=== PATIENT | male | born 1980 | race Caucasian/White ===

== ENCOUNTER 2021-10-04 17:34 | Outpatient (CLI) | payer OTHER, SELFPAY | END 2021-10-04 17:35 | disposition home or self-care (01) | LOC: LKVREF 17:34 | PROVIDERS: PCP Family Medicine; Visit Provider Registered Nurse | DX: R10.9 Unspecified abdominal pain (principal) | CPT/HCPCS: 87086 ==

== ENCOUNTER 2021-10-04 17:35 | Inpatient (IN) | payer OTHER, SELFPAY ==
[2021-10-04 17:46] VITALS: BP 123/60; PULSE 129; RESP 24; TEMP 38.8; O2SAT 97; BMI 33.5
--- NOTE | 2021-10-04 18:15 | ED_ITS ---
HPI - Abdominal Pain General Time Seen by Provider: 18:15 Date Seen: 10/04/21 Chief Complaint: Abdominal Pain Stated Complaint: Left abdominal pain Time Seen by Provider: 10/04/21 18:14 Source: patient and RN notes reviewed Mode of arrival: ambulatory Limitations: no limitations History of Present Illness HPI narrative: Patient is presenting to the ER from [facility] where he was seen for left flank pain. He reported on intake that he was having left side and back pain about 4 hours prior to being seen. Symptoms had him quite uncomfortable on presentation daughter urgent care. It sounds as if he was diaphoretic. He did leave urinalysis in get 30 mg IM Toradol but then left to come down here to get a CT. He has never had any history of kidney stones. His works in our clinic here. He did drive himself here but is able to get a ride if needed. He notes his grandmother and had bladder infections before there is no family history of stones. He reports he had a normal bowel movement this morning. In this process just prior to arrival he started to develop a headache and is documented to have a fever of 102 F on arrival here. His tympanic temperature is documented to be 98.4 in Urgent Care but patient is adamant that he states he had a temperature there is well. We certainly do have a 102? F temperature here. He denies any urinary symptoms, no nausea or vomiting. There is no cough with this but he does note he takes a really deep breath it does hurt in that left flank area. Related Data Home Medications Medication Instructions Recorded Confirmed albuterol sulfate 90 mcg/actuation g inhalation 10/04/21 10/04/21 aerosol inhaler (Ventolin HFA) filter needles 19 x 1 1/2 (BD #1 ea 10/04/21 10/04/21 Filter Needle-5 Micron) magnesium oxide 400 mg (241.3 mg 400 mg PO 10/04/21 10/04/21 magnesium) tablet needle (disp) 23 gauge 23 gauge x #100 ea 10/04/21 10/04/21 1 (Hypodermic [place]) syringe (disposable) 1 mL (BD #1,000 ea 10/04/21 10/04/21 Luer-Tawanda Syringe) testosterone 20.25 mg/1.25 gram 20.25 mg transdermal 10/04/21 10/04/21 (1.62 %) transdermal gel pump testosterone cypionate 200 mg/mL 200 mg IM 10/04/21 10/04/21 intramuscular oil Allergies Allergy/AdvReac Type Severity Reaction Status Date / Time No Known Drug Allergies Allergy Verified 10/04/21 16:27 Review of Systems Status of ROS Reports: 10 or more systems reviewed and unremarkable except as noted in History and below [facility] Medical History Asthma Surgical History Status post hernia repair Social History Smoking Status: Never smoker Do you use any of these nicotine containing products: None How often do you have a drink containing alcohol: never How often do you have six or more drinks on one occasion: Never AUDIT-C Alcohol total score: 0 Non-prescribed substance use: denies use Exam Const: Vital Signs, click to edit/add: Vital Signs - 24 hr 10/04/21 17:46 10/04/21 18:41 10/04/21 20:23 Temperature 102 F H 102 F H 98.9 F Pulse Rate [Pulse Oximeter] 129 H 121 H Respiratory Rate 24 22 Blood Pressure [Le ft Upper Arm] 123/60 112/78 Pulse Oximetry 97 98 Oxygen Delivery Me thod Room Air Room Air 10/04/21 20:44 Temperature 101.2 F H Pulse Rate [Pulse Oximeter] 120 H Respiratory Rate 24 Blood Pressure [Le ft Upper Arm] 119/58 L Pulse Oximetry 96 Oxygen Delivery Me thod Room Air Documenting provider has reviewed patient's vital signs: yes Common normals: no apparent distress, average body habitus, oriented x3, no limitations, healthy appearing, alert and well nourished General appearance: cooperative, comfortable and ill appearing HENMT: Common normals: normocephalic, head/scalp atraumatic, hearing grossly normal bilaterally, TM's normal bilaterally, external nose normal, nasal mucous membranes and turbinates normal, moist oral mucous membranes, oropharynx normal and dentition normal Head and scalp: normocephalic and atraumatic Nose: external nose normal and nasal mucous membranes and turbinates normal Tympanic membrane: TM's normal bilaterally Eye: Common normals: PERRL, EOMs intact bilaterally, conjunctivae normal and no scleral icterus Conjunctiva: conjunctiva(e) normal Pupil: PERRL Neck & C-Spine: Common normals: full ROM, no lymphadenopathy, supple, no meningeal signs, no JVD and thyroid normal Thyroid: thyroid normal Resp: Common normals: normal respiratory effort, no retractions, no use of accessory muscles and clear to auscultation bilaterally Auscultation: clear to auscultation bilaterally Cardio: Common normals: no JVD, regular rate, regular rhythm, S1 normal heart sound, S2 normal heart sound, no gallops, no clicks, no murmurs and no rub Rate: regular rate Rhythm: regular rhythm Heart sounds: S1 normal and S2 normal GI: Other: patient has no visible flank skin changes. He is tender in the left lateral abdomen and down into the left lateral quadrant. There is not true guarding or rebound. There is no organomegaly anywhere nor any masses. Abdomen is nondistended and overall soft but there is tenderness on that left side. Extremity: Common normals: normal to inspection, full ROM, normal capillary refill, no joint enlargement, no clubbing, cyanosis or edema, no calf tenderness and no pedal edema Neuro: Common normals: oriented x3 Sensorium/orientation: alert Meningeal signs: no meningeal signs Course Course Hospital Course: Patient obviously has an infectious source that we need to find. Given that some of this was left flank and has a little pleuritic symptoms, do think we should do chest abdomen pelvis with IV contrast. Will started L of fluids, give him some Tylenol as well as morphine and Zofran for pain control. We will be getting blood cultures and a full complement of labs. It is likely he will need admission, rule out surgical abdomen here for sure. Reevaluation(s) Reevaluation #1: Nursing staff alerted me that patient had blood pressure drop. He had a systolic of 104 and then had a blood pressure of 99/58 just prior to this time. His pulse had raised into the 120s just becoming more tachycardic. He is still alert and awake. He is having significant left flank and back pain likely from the retroperitoneal air. The Zosyn has been given. We are attempting to transfer but [facility] is on diversion. We will attempt to continue contacting places but her surgeon is on our way down here knowing that he may need to go to the OR here for expediency and to get him to surgically quickly. I have been subsequently notified by nursing staff that the [facility] system is completely out of question for transfer. They will continue to make calls seen if we could get an expeditious transfer while our OR crew and surgeon are EN route. Time: 20:35 Reevaluation #2: We have continued to try to look for resources to send this patient to. Kesha it is trauma only, we have actually called back [facility] as well as [facility] asking for postsurgical ICU beds. They are telling us they cannot accept. Surgery crew in the surgeon are here. The surgeon has decided that it is definitely needed emergently and time is of the essence. Thus, she has made the decision to go to the OR here and hopefully patient will be stable postoperatively but they may need to look for transfer afterwards Which certainly may prove difficult as well. Time: 21:32 Consultations Consultation #1: Received phone call by Dr. Amy Doran from Radiology. Verbal report is that there is acute diverticulitis in the mid descending colon there is wall thickening and small to moderate retroperitoneal air which is extending into the mediastinum. This is obviously a perforation and not a micro perf. I did subsequently call our surgeon Dr. Robertson whom will be looking at the CT and co ntacting me back for further recommendations. I have subsequently ordered Zosyn for the patient as well. Patient was subsequently advised of the CT findings, that IV antibiotics will be initiated. I will let him know I have spoken to the surgeon. He states the pain is starting to come back. I will order another subsequent 4 mg IV morphine. I see his initial fluids are done and I will now order another L of normal saline over 2 hours. Time: 19:55 Vital Signs Vital signs: Initial Vital Signs Temperature 102 F H 10/04/21 17:46 Temperature Source Temporal Artery Scan 10/04/21 17:46 Pulse Rate 129 H 10/04/21 17:46 Pulse Rhythm 10/04/21 17:46 Respiratory Rate 24 10/04/21 17:46 Blood Pressure 123/60 10/04/21 17:46 Blood Pressure Mean 81 10/04/21 17:46 Blood Pressure Position Sitting 10/04/21 17:46 Pulse Oximetry 97 10/04/21 17:46 Oxygen Delivery Method 10/04/21 17:46 Vital Signs Temperature 102 F H 10/04/21 17:46 Pulse Rate 129 H 10/04/21 17:46 Respiratory Rate 24 10/04/21 17:46 Blood Pressure 123/60 10/04/21 17:46 Pulse Oximetry 97 10/04/21 17:46 Oxygen Delivery Method 10/04/21 17:46 Temperature 101.2 F H 10/04/21 20:44 Pulse Rate 120 H 10/04/21 20:44 Respiratory Rate 24 10/04/21 20:44 Blood Pressure 119/58 L 10/04/21 20:44 Pulse Oximetry 96 10/04/21 20:44 Oxygen Delivery Method 10/04/21 20:44 MDM - Abdominal Pain Lab Data Attestation: I reviewed the patient's lab results. Labs: Lab Results 10/04/21 10/04/21 10/04/21 Range/Units 18:10 18:10 18:10 WBC 18.25 H (4.50-11.00) K/uL RBC 5.72 (4.30-5.90) m/uL Hgb 16.6 (13.5-17.5) gm/dL Hct 49.2 (37.0-53.0) % MCV 86 (80-100) fL MCH 29 (26-34) pg MCHC 34 (32-36) gm/dL RDW Coeff of Balbir 14.2 (11.5-15.5) % Plt Count 338 (140-440) K/uL Neut % (Auto) 90.2 H (42.0-72.0) % Lymph % (Auto) 3.5 L (20-44) % [place] % (Auto) 5.9 (0.0-11.0) % Eos % (Auto) 0.1 (0.0-7.0) % Baso % (Auto) 0.1 (0.0-3.0) % Neut # (Auto) 16.50 H (1.7-7.0) K/uL Lymph # (Auto) 0.60 L (0.90-2.90) K/uL [place] # (Auto) 1.10 H (0.00-0.90) K/UL Eos # (Auto) 0.00 (0.00-0.50) K/uL Baso # (Auto) 0.00 (0.00-0.30) K/uL Abs Immat Gran (auto) 0.03 (0.00-0.30) K/uL ESR (2-15) mm/hr Sodium 136 (135-149) mmol/L Potassium 4.0 (3.6-5.1) mmol/L Chloride 103 (96-114) mmol/L Carbon Dioxide 18 L (20-32) mmol/L BUN 19 (5-24) mg/dL Creatinine 1.0 (0.5-1.5) mg/dL Estimated Creat Clear 90.89 Estimated GFR 97 ml/min Glucose 97 (60-115) mg/dL Lactate 1.1 (0.5-1.9) mmol/L Calcium 9.4 (8.4-10.6) mg/dL Total Bilirubin 1.0 (0.1-1.5) mg/dL AST 24 (12-35) U/L ALT 23 (4-50) U/L Alkaline Phosphatase 83 (40-150) U/L C-Reactive Protein 14.7 H (0.5-1.0) mg/dL Total Protein 8.2 (6.0-8.3) g/dL Albumin 4.7 (3.3-5.0) g/dL SARS-CoV-2 (PCR) (Negative) 10/04/21 10/04/21 Range/Units 18:10 18:24 WBC (4.50-11.00) K/uL RBC (4.30-5.90) m/uL Hgb (13.5-17.5) gm/dL Hct (37.0-53.0) % MCV (80-100) fL MCH (26-34) pg MCHC (32-36) gm/dL RDW Coeff of Balbir (11.5-15.5) % Plt Count (140-440) K/uL Neut % (Auto) (42.0-72.0) % Lymph % (Auto) (20-44) % [place] % (Auto) (0.0-11.0) % Eos % (Auto) (0.0-7.0) % Baso % (Auto) (0.0-3.0) % Neut # (Auto) (1.7-7.0) K/uL Lymph # (Auto) (0.90-2.90) K/uL [place] # (Auto) (0.00-0.90) K/UL Eos # (Auto) (0.00-0.50) K/uL Baso # (Auto) (0.00-0.30) K/uL Abs Immat Gran (auto) (0.00-0.30) K/uL ESR 7 (2-15) mm/hr Sodium (135-149) mmol/L Potassium (3.6-5.1) mmol/L Chloride (96-114) mmol/L Carbon Dioxide (20-32) mmol/L BUN (5-24) mg/dL Creatinine (0.5-1.5) mg/dL Estimated Creat Clear Estimated GFR ml/min Glucose (60-115) mg/dL Lactate (0.5-1.9) mmol/L Calcium (8.4-10.6) mg/dL Total Bilirubin (0.1-1.5) mg/dL AST (12-35) U/L ALT (4-50) U/L Alkaline Phosphatase (40-150) U/L C-Reactive Protein (0.5-1.0) mg/dL Total Protein (6.0-8.3) g/dL Albumin (3.3-5.0) g/dL SARS-CoV-2 (PCR) Negative SARS-CoV-2 (Negative) Imaging Data CT Chest/Ab/Pelvis: Attestation: I have reviewed the pertinent imaging results. Radiologist's impression: Patient: MARLEN COLE Facility:?[facility] Patient ID:?[id number] Site Patient ID:?[id number]. Site :?[id number] Study:?CT Chest/Abd/Pelvis w/ Contrast-10/04/2021 7:01:57 PM Ordering Physician:Faustino Handley Final Report: INDICATION: Fever of unknown source, left flank pain TECHNIQUE: CT chest, abdomen and pelvis acquired with 99 cc Isovue 370 IV contrast. COMPARISON: CT abdomen pelvis May 19, 2012 FINDINGS: Chest: Cardiovascular structures: Heart size is normal. Thoracic aorta and main pulmonary artery are normal in caliber. Mediastinum and varun: There is small amount of pneumomediastinum. No mass or adenopathy. Lungs: Clear. Pleura and pericardium: No effusions. Chest wall and axilla: No mass or adenopathy. Bones: Unremarkable for age. Abdomen and Pelvis: Liver: Unremarkable. Spleen: Unremarkable. 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 Gallbladder and bile ducts: Unremarkable. Adrenal glands: Unremarkable. Kidneys: Unremarkable. GI tract: Colonic diverticulosis. Fat stranding and wall thickening involving the mid descending colon. There is a small to moderate amount of left retroperitoneal air which extends into the mediastinum. Moderate amount of stool within the colon proximal to the mid descending colon. There is no abscess. Normal appendix. Vascular structures: Unremarkable. Lymph nodes: Unremarkable. Miscellaneous: Unremarkable. Pelvic Organs: Unremarkable. Bones: Chronic bilateral L5 pars defects. IMPRESSION: Acute diverticulitis of the mid descending colon with small to moderate amount of left retroperitoneal air extending into the mediastinum. No abscess. Stable appearance of fat containing mass in the pancreatic head. These findings were discussed with Dr. Galvin at 7:55 p.m. on October 04, 2021. Please note that all CT scans at this facility use dose modulation, iterative reconstruction, and/or weight-based dosing when appropriate to reduce radiation dose to as low as reasonably achievable. Dictated by Amy Doran MD @ 10/04/2021 7:57:30 PM (Electronic Signature) Critical Care Time Critical Care Time Critical Care Time: Yes (starting with the low blood pressure) Attestation: The patient required my highest level preparedness to intervene emergently and I personally spent this critical care time directly and personally managing the patient. This critical care time included: Obtaining a history; Examining the patient; Pulse oximetry; Ordering and reviewing of studies; Arranging urgent treatment with development of a management plan; Evaluation of patients response to treatment; Frequent reassessment discussions with other providers. This critical care time was performed to assess and manage the high probability of imminent life-threatening deterioration that could result in multiorgan failure. It was exclusive of separate billable procedures and treating other patients and teaching time. Total Critical Care Time in Minutes: 60 Discharge Plan Discharge Clinical Impression: Diverticulitis of descending colon, Perforation bowel Patient Disposition: Admitted As Inpatient Condition: Unchanged
--- NOTE | 2021-10-04 18:21 | ED.NURSE ---
iv was started and blood drawn. #18 in [facility].
--- NOTE | 2021-10-04 18:23 | CRLHL7_ITS ---
For Patients: As a result of the Century Cures Act, medical imaging exams and procedure reports are released immediately into your electronic medical record. You may view this report before your referring provider. If you have questions, please contact your health care provider. INDICATION: Fever of unknown source, left flank pain TECHNIQUE: CT chest, abdomen and pelvis acquired with 99 cc Isovue 370 IV contrast. COMPARISON: CT abdomen pelvis May 19, 2012 FINDINGS: Chest: Cardiovascular structures: Heart size is normal. Thoracic aorta and main pulmonary artery are normal in caliber. Mediastinum and varun: There is small amount of pneumomediastinum. No mass or adenopathy. Lungs: Clear. Pleura and pericardium: No effusions. Chest wall and axilla: No mass or adenopathy. Bones: Unremarkable for age. Abdomen and Pelvis: Liver: Unremarkable. Spleen: Unremarkable. 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 Gallbladder and bile ducts: Unremarkable. Adrenal glands: Unremarkable. Kidneys: Unremarkable. GI tract: Colonic diverticulosis. Fat stranding and wall thickening involving the mid descending colon. There is a small to moderate amount of left retroperitoneal air which extends into the mediastinum. Moderate amount of stool within the colon proximal to the mid descending colon. There is no abscess. Normal appendix. Vascular structures: Unremarkable. Lymph nodes: Unremarkable. Miscellaneous: Unremarkable. Pelvic Organs: Unremarkable. Bones: Chronic bilateral L5 pars defects. IMPRESSION: Acute diverticulitis of the mid descending colon with small to moderate amount of left retroperitoneal air extending into the mediastinum. No abscess. Stable appearance of fat containing mass in the pancreatic head. These findings were discussed with Dr. Galvin at 7:55 p.m. on October 04, 2021. Please note that all CT scans at this facility use dose modulation, iterative reconstruction, and/or weight-based dosing when appropriate to reduce radiation dose to as low as reasonably achievable. Dictated by Amy Doran MD @ 10/04/2021 7:57:30 PM (Electronically Signed)
[2021-10-04 18:41] VITALS: TEMP 38.8
[2021-10-04] MEDS: ACETAMINOPHEN 500 MG TABLET 1000 MG PO (18:41)
[2021-10-04] MEDS: 0.9 % SODIUM CHLORIDE 1000 ml 1,000 ML IV (18:41)
[2021-10-04] MEDS: MORPHINE 4 MG/ML INJ IVP ×2 (18:41→20:20)
[2021-10-04] MEDS: ONDANSETRON 2 MG/ML inj 4 MG IVP (18:42)
[2021-10-04 18:57] LABS: Lactate* 1.1 mmol/L (0.5-1.9)
[2021-10-04 18:59] LABS: Basophils Percent Auto 0.1 % (0.0-3.0); Eosinophils Percent Auto 0.1 % (0.0-7.0); Hematocrit 49.2 % (37.0-53.0); Hemoglobin* 16.6 gm/dL (13.5-17.5); Immature Granulocytes Abs Auto 0.03 K/uL (0.00-0.30); Lymphocytes Percent Auto 3.5 % (20-44); Mean Corpuscular HGB Conc 34 gm/dL (32-36); Mean Corpuscular Hemoglobin 29 pg (26-34); Mean Corpuscular Volume 86 fL (80-100); Monocytes Percent Auto 5.9 % (0.0-11.0); Neutrophils Percent Auto 90.2 % (42.0-72.0); Platelet Count* 338 K/uL (140-440); RDW Coefficient of Variation % 14.2 % (11.5-15.5); Red Blood Count 5.72 m/uL (4.30-5.90); White Blood Count* 18.25 K/uL (4.50-11.00)
[2021-10-04 19:03] LABS: Slide Review Reflex No
[2021-10-04 19:56] LABS: Albumin* 4.7 g/dL (3.3-5.0); Chloride* 103 mmol/L (96-114); Sodium* 136 mmol/L (135-149)
[2021-10-04 19:59] LABS: Est. Creatinine Clearance* 90.89; Estimated Glomerular Filt Rate 97 ml/min; SARS PCR* Negative SARS-CoV-2 (Negative)
[2021-10-04 20:00] LABS: Alanine Aminotransferase* 23 U/L (4-50); Alkaline Phosphatase* 83 U/L (40-150); Aspartate Amino Transferase* 24 U/L (12-35); Blood Urea Nitrogen* 19 mg/dL (5-24); Carbon Dioxide* 18 mmol/L (20-32); Glucose* 97 mg/dL (60-115); Total Protein* 8.2 g/dL (6.0-8.3)
[2021-10-04 20:01] LABS: Calcium* 9.4 mg/dL (8.4-10.6)
[2021-10-04 20:12] LABS: Erythrocyte SedimentationRate* 7 mm/hr (2-15)
[2021-10-04 20:19] LABS: C Reactive Protein* 14.7 mg/dL (0.5-1.0)
[2021-10-04] MEDS: 0.9 % SODIUM CHLORIDE 1000 ml 1,000 ML 500 ML IV (20:20)
[2021-10-04] MEDS: PIPERACILLIN/TAZOBACTAM 3.375 GM in 0.9 % SODIUM CHLORIDE Mini-bag 100 ML IVPB (20:20)
[2021-10-04 20:23] VITALS: BP 112/78; PULSE 121; RESP 22; TEMP 37.2; O2SAT 98
[2021-10-04 20:44] VITALS: BP 119/58; PULSE 120; RESP 24; TEMP 38.4; O2SAT 96
[2021-10-04] MEDS: LACTATED RINGERS 1000 ML 1,000 ML 100 ML IV ×2 (21:20→22:45)
--- NOTE | 2021-10-04 21:33 | PM.GSCN ---
History of Present Illness Consult details Date Seen: 10/04/21 Consult date: 10/04/21 Reason for consult: abdominal pain Narrative: Patient is an otherwise healthy 41-year-old male, who presented initially to urgent care with left-sided abdominal pain. On presentation he was febrile and tachycardic, prompting him to be sent to the emergency department. He states that the pain started around noon. He has never had pain like this before. He has been febrile since the pain started. The pain is on his left side with some radiation around his flank into his back. Decrease in appetite. Denies any associated nausea or vomiting. The only thing that seems to make the pain better is pain medication, no position is comfortable. denies any diarrhea or constipation. He did have a colonoscopy 2 years earlier, because he was having pain with bowel movements, this was negative per patient. Denies any family history of colon cancer. Abdominal surgical history is positive for umbilical hernia repair with mesh. Review of Systems Status of ROS: Reports: 6 or more systems reviewed and unremarkable except as noted in History and below [facility] Medical History Asthma Surgical History (Updated 10/04/21 @ 21:38 by Emmanuelle Abebe MD) Status post hernia repair Social History Smoking Status: Never smoker Do you use any of these nicotine containing products: None How often do you have a drink containing alcohol: never How often do you have six or more drinks on one occasion: Never AUDIT-C Alcohol total score: 0 Non-prescribed substance use: denies use Meds Home Medications and Allergies Home Medications Medication Instructions Recorded Confirmed Type albuterol sulfate 90 mcg/actuation g inhalation 10/04/21 10/04/21 History aerosol inhaler (Ventolin HFA) filter needles 19 x 1 1/2 (BD #1 ea 10/04/21 10/04/21 History Filter Needle-5 Micron) magnesium oxide 400 mg (241.3 mg 400 mg PO 10/04/21 10/04/21 History magnesium) tablet needle (disp) 23 gauge 23 gauge x #100 ea 10/04/21 10/04/21 History 1 (Hypodermic [place]) syringe (disposable) 1 mL (BD #1,000 ea 10/04/21 10/04/21 History Luer-Tawanda Syringe) testosterone 20.25 mg/1.25 gram 20.25 mg transdermal 10/04/21 10/04/21 History (1.62 %) transdermal gel pump testosterone cypionate 200 mg/mL 200 mg IM 10/04/21 10/04/21 History intramuscular oil Allergies Allergy/AdvReac Type Severity Reaction Status Date / Time No Known Drug Allergies Allergy Verified 10/04/21 16:27 Exam Narrative: Exam Narrative: General: Alert and oriented, moderate distress. Respiratory: Equal breath rise bilaterally, maintained on room air CV: Tachycardic, regular rhythm, warm to the touch and well perfused Abdomen: Soft mild distention, tender to palpation with some guarding. Left flank tenderness to palpation with guarding and rebound. Extremities: No evidence of bilateral edema Const: Vital Signs, click to edit/add: Vital Signs - 24 hr 10/04/21 17:46 10/04/21 18:41 10/04/21 20:23 Temperature 102 F H 102 F H 98.9 F Pulse Rate [Pulse Oximeter] 129 H 121 H Respiratory Rate 24 22 Blood Pressure [Le ft Upper Arm] 123/60 112/78 Pulse Oximetry 97 98 Oxygen Delivery Me thod Room Air Room Air 10/04/21 20:44 Temperature 101.2 F H Pulse Rate [Pulse Oximeter] 120 H Respiratory Rate 24 Blood Pressure [Le ft Upper Arm] 119/58 L Pulse Oximetry 96 Oxygen Delivery Me thod Room Air Results Labs Labs: Abnormal lab results 10/04/21 10/04/21 Range/Units 18:10 18:10 WBC 18.25 H (4.50-11.00) K/uL Neut % (Auto) 90.2 H (42.0-72.0) % Lymph % (Auto) 3.5 L (20-44) % Neut # (Auto) 16.50 H (1.7-7.0) K/uL Lymph # (Auto) 0.60 L (0.90-2.90) K/uL [place] # (Auto) 1.10 H (0.00-0.90) K/UL Carbon Dioxide 18 L (20-32) mmol/L C-Reactive Protein 14.7 H (0.5-1.0) mg/dL Diabetes panel 10/04/21 Range/Units 18:10 Sodium 136 (135-149) mmol/L Potassium 4.0 (3.6-5.1) mmol/L Chloride 103 (96-114) mmol/L Carbon Dioxide 18 L (20-32) mmol/L BUN 19 (5-24) mg/dL Creatinine 1.0 (0.5-1.5) mg/dL Glucose 97 (60-115) mg/dL Calcium 9.4 (8.4-10.6) mg/dL AST 24 (12-35) U/L ALT 23 (4-50) U/L Alkaline Phosphatase 83 (40-150) U/L Total Protein 8.2 (6.0-8.3) g/dL Albumin 4.7 (3.3-5.0) g/dL Calcium panel 10/04/21 Range/Units 18:10 Calcium 9.4 (8.4-10.6) mg/dL Albumin 4.7 (3.3-5.0) g/dL Pituitary panel 10/04/21 Range/Units 18:10 Sodium 136 (135-149) mmol/L Potassium 4.0 (3.6-5.1) mmol/L Chloride 103 (96-114) mmol/L Carbon Dioxide 18 L (20-32) mmol/L BUN 19 (5-24) mg/dL Creatinine 1.0 (0.5-1.5) mg/dL Glucose 97 (60-115) mg/dL Calcium 9.4 (8.4-10.6) mg/dL Adrenal panel 10/04/21 Range/Units 18:10 Sodium 136 (135-149) mmol/L Potassium 4.0 (3.6-5.1) mmol/L Chloride 103 (96-114) mmol/L Carbon Dioxide 18 L (20-32) mmol/L BUN 19 (5-24) mg/dL Creatinine 1.0 (0.5-1.5) mg/dL Glucose 97 (60-115) mg/dL Calcium 9.4 (8.4-10.6) mg/dL Total Bilirubin 1.0 (0.1-1.5) mg/dL AST 24 (12-35) U/L ALT 23 (4-50) U/L Alkaline Phosphatase 83 (40-150) U/L Total Protein 8.2 (6.0-8.3) g/dL Albumin 4.7 (3.3-5.0) g/dL All other labs normal. Imaging Abdomen CT scan report/results: report reviewed and image reviewed CT scan - chest: report reviewed and image reviewed Assessment and Plan Assessment and plan (1) Perforation bowel: Status: Acute Plan patient is a 41-year-old male with sudden onset abdominal pain. Vital signs significant for tachycardia and hypotension in the emergency department. His pressures have responded to fluid resuscitation. He has also been persistently febrile since presentation. Labs are significant for leukocytosis (18) and elevated CRP ( 14.7). CT chest abdomen and pelvis was obtained with evidence of left colonic diverticulitis and associated perforation. There is a significant amount of retroperitoneal air that tracks up into the mediastinum. Given the patient's presentation and findings on workup, this is consistent with a noncontained colonic perforation. this was discussed at length with the patient, with recommendations at this time to proceed to the operating room for an emergency operation. Would plan for an exploratory laparotomy, colonic resection and end ostomy. Risks and benefits of the operation were discussed at length with the patient. Risks included were not limited to: Bleeding, infection, risk of damage to surrounding structures and possible need for additional procedures. Additionally reviewed with the patient the risk of postoperative complications such as pneumonia, DVT, PE and . He is currently meeting sepsis criteria and may require transfer to a facility for ICU cares post operatively. - OR for exploratory laparotomy, colonic resection and end ostomy - NPO, IV fluids will continue aggressive fluid resuscitation intraoperatively - Lua placement - IV antibiotics, Zosyn administered in the emergency department
[2021-10-05] VITALS (32 sets, daily range): BP systolic 112–173; BP diastolic 54–115; PULSE 84–99; RESP 14–28; TEMP 36.6–37.9; O2SAT 90–96
--- NOTE | 2021-10-05 01:30 | P.GSOP_ITS ---
Operative Note Date of procedure: 10/04/21 Type of Procedure: 1. Exploratory laparotomy 2. Left hemicolectomy 3. Complete mobilization of the splenic flexure Procedure Description: I arrived into the OR with the patient under anesthesia and the abdominal incision had been made. Dr. Robertson positioned the omni retractor in and patient was placed in Trendelenburg with the left side up. Dr. Robertson gently packed the small bowel into the right abdomen, exposing the colon. She palpated the colon along its length and discover that the perforation was in the left mid/lateral abdomen. She then extended the incision cephalad several cm to better expose the area. Once this was done, the retractors were replaced and the small bowel moved into the right abdomen. Once this was done, Dr. Robertson retracted the left colon medially and I retracted the lateral peritoneal attachments. The peritoneum was incised and Dr. Robertson then exposed the white line of Toldt using a right angle and I incised it with cautery. We were able to take the dissection up toward the spleen. The colon was noted to be firm and densely adherent to the retroperitoneum in the area of perforation. Once we reached the spleen, very carefully, using LigaSure, Dr. Robertson divided the splenocolic ligament while I retracted the colon inferiorly. We were able to mobilize the colon inferior to the perforation and superiorly, however the colon was very stuck to the retroperitoneum and we were unable to mobilize it. At this time we elected to identify the proximal point of transection and divided the mesentery, heading distally to the inflammatory mass. Dr. Robertson then identified and retracted the stomach while I retracted the transverse colon and divided the gastrocolic ligament using LigaSure. The lesser sac was entered and we were able to completely mobilize the transverse colon and the splenic flexure from this angle. Once this was done, an area of transverse colon which was disease free and freely mobile was selected for the area of proximal transection. Dr. Robertson created a mesenteric window and through this passed a blue load TRISTON stapler. She then divided the colon. She then took LigaSure and divided the transverse colon mesentery and around the splenic fl exure while I provided retraction. Small mesenteric vessels were also ligated with suture. Once we reached the mass, it was densely adhered to the retroperitoneum. We were able to free it with a combination of blunt dissection and the LigaSure. A cavity containing stool and necrotic tissue was encountered in the retroperitoneum. This did not track medially or superiorly and the area where the air was noted on the patient's CT scan. Once we were able to get past this area, Dr. Robertson divided the colon mesentery until a soft portion of colon was encountered just distal to the inflammatory mass. This was our distal point of transection. Dr. Robertson then cleared the epiploic fat off of the colon and fired a blue load TRISTON stapler across this. The specimen was sent to pathology with a stitch marking the distal aspect. Once this was done, the wound bed was examined for hemostasis. Again Dr. Robertson examined the abscess cavity and ensure that there was no undrained collection. She then placed a drain in the left lateral abdomen. We then dissected the mesentery of the transverse colon to ensure that it would pass freely to the abdominal wall. Once this was done, Dr. Robertson created an incision in the scan just above the umbilicus on the left side of the abdomen. She took dissection down into the subcutaneous tissue. I assisted with retraction at this time. She incised the fascia and the rectus muscles to create a stoma trephine. Through this she passed the and of the transverse colon easily. Once this was done we switched to clean instruments and Dr. Robertson closed the upper portion the fascia and I closed the lower portion of the fascia. Incision was then stapled. At this point I turned the case over to Dr. Robertson to mature the stoma. Please see her Operative report. Findings: Perforation of the descending colon with retroperitoneal abscess and stool. Anesthesia: GETA Surgeon: Hailee Robertson MD Co-Surgeon: Saumya Lobo MD Estimated blood loss (mL): 150 Condition: stable Disposition: PACU
--- NOTE | 2021-10-05 01:45 | PM.ONB ---
Brief Operative Note Date of procedure: 10/05/21 Pre-op diagnosis: Perforated diverticulitis Post-op diagnosis: same Anesthesia: GETA Surgeon: Hailee Robertson Print Shop Manager: Saumya Lobo Estimated blood loss (mL): 150 Pathology: specimen obtained, sent to pathology Condition: stable Disposition: PACU
--- NOTE | 2021-10-05 01:52 | W.ANESCHARGE ---
Anesthesia Charges Start Date/Time Anesthesia Start Date: 10/05/21 Anesthesia Start Time: 21:50 Stop Date/Time Anesthesia Stop Date: 10/05/21 Anesthesia Stop Time: 01:42 Summary Emergency: Yes
[2021-10-05] MEDS: HYDROmorphone 0.5 mg/0.5 ml inj IVP ×14 (02:43→23:36)
[2021-10-05] MEDS: LACTATED RINGERS 1000 ML 1,000 ML 125 ML IV ×3 (02:47→19:22)
[2021-10-05] MEDS: PIPERACILLIN/TAZOBACTAM 3.375 GM in 0.9 % SODIUM CHLORIDE Mini-bag 100 ML IVPB ×4 (03:56→21:38)
[2021-10-05] MEDS: KETOROLAC 15 MG/ML inj IVP ×4 (04:05→21:35)
--- NOTE | 2021-10-05 07:10 | PC.NURSE ---
Admission/Shift Note: Pt to room CCU4 at 0232 following surgery. Pt A&O. Pt afebrile, initially on simple mask at 10L, weaned to NC at 2L with O2 sats in the low 90's, pt encouraged to cough and deep breathe. Abdominal incision has some serosanguineous drainage noted, RUDI drain is patent, stripped and drained Q4H with 40ml of output this shift. Urine output 300ml via Lua which is patent and draining. Pt denies N/V, CP, and SOB. Pt given PRN Dilaudid and PRN Toradol with pt reporting relief. Pt is splinting with a pillow and active ice to abdomen. Pt colostomy is intact, stoma appears beefy and red, moist, very minimal bloody output.
[2021-10-05] MEDS: ALBUTEROL SULFATE 2.5 MG/3 ML VIAL.NEB NEB ×2 (07:34→15:12)
--- NOTE | 2021-10-05 09:59 | PM.GSPN ---
Subjective Subjective Date Seen: 10/05/21 Interval history: Patient is doing well this morning. He is having abdominal pain and requiring pain meds every hour. He has not yet gotten up out of bed. Knight is still in place. He is feeling very thirsty this morning, no appetite. Denies any nausea and not yet passing gas. Exam Narrative: Exam Narrative: Gen: ALert and oriented, no acute distress Resp: on NC, equal breath rise bilaterally CV: RRR Abdomen: midline incision with dressing in place c/d/i. Stoma is beefy red in appearance, minimal bloody drianage. RUDI drain with minimal dark sanguinous output. Abdomen is non distended, soft and appropriately tender over incisions. Const: Vital Signs, click to edit/add: Vital Signs - 24 hr 10/04/21 17:46 10/04/21 18:41 10/04/21 20:23 Temperature 102 F H 102 F H 98.9 F Pulse Rate Pulse Rate [Left P ulse Oximeter] Pulse Rate [Pulse Oximeter] 129 H 121 H Respiratory Rate 24 22 Blood Pressure Blood Pressure [Le ft Upper Arm] 123/60 112/78 Blood Pressure [Ri ght Arm] Pulse Oximetry 97 98 Oxygen Delivery Me thod Room Air Room Air Oxygen Flow Rate 10/04/21 20:44 10/05/21 01:41 10/05/21 01:45 Temperature 101.2 F H 100.2 F H Pulse Rate 93 89 Pulse Rate [Left P ulse Oximeter] Pulse Rate [Pulse Oximeter] 120 H Respiratory Rate 24 20 17 Blood Pressure 126/73 123/72 Blood Pressure [Le ft Upper Arm] 119/58 L Blood Pressure [Ri ght Arm] Pulse Oximetry 96 91 91 Oxygen Delivery Me thod Room Air Oxygen Flow Rate 10/05/21 01:50 10/05/21 01:55 10/05/21 02:00 Temperature Pulse Rate 84 90 92 Pulse Rate [Left P ulse Oximeter] Pulse Rate [Pulse Oximeter] Respiratory Rate 23 17 14 Blood Pressure 120/73 117/73 118/68 Blood Pressure [Le ft Upper Arm] Blood Pressure [Ri ght Arm] Pulse Oximetry 92 92 93 Oxygen Delivery Me thod Oxygen Flow Rate 10/05/21 02:05 10/05/21 02:10 10/05/21 02:15 Temperature Pulse Rate 89 85 86 Pulse Rate [Left P ulse Oximeter] Pulse Rate [Pulse Oximeter] Respiratory Rate 14 14 20 Blood Pressure 127/75 118/77 112/54 L Blood Pressure [Le ft Upper Arm] Blood Pressure [Ri ght Arm] Pulse Oximetry 92 92 92 Oxygen Delivery Me thod Oxygen Flow Rate 10/05/21 02:20 10/05/21 02:38 10/05/21 02:38 Temperature 97.9 F Pulse Rate 90 Pulse Rate [Left P ulse Oximeter] 90 Pulse Rate [Pulse Oximeter] Respiratory Rate 16 28 H 28 H Blood Pressure 124/69 Blood Pressure [Le ft Upper Arm] Blood Pressure [Ri ght Arm] 134/78 Pulse Oximetry 92 93 93 Oxygen Delivery Me thod Aerosol Mask Aerosol Mask Oxygen Flow Rate 10 10 10/05/21 02:38 10/05/21 03:00 10/05/21 05:30 Temperature 97.9 F 97.8 F 97.9 F Pulse Rate Pulse Rate [Left P ulse Oximeter] 90 88 84 Pulse Rate [Pulse Oximeter] Respiratory Rate 28 H 26 H 20 Blood Pressure Blood Pressure [Le ft Upper Arm] Blood Pressure [Ri ght Arm] 134/78 133/80 134/76 Pulse Oximetry 93 96 94 Oxygen Delivery Me thod Aerosol Mask Aerosol Mask Nasal Cannula Oxygen Flow Rate 10 10 2 10/05/21 03:15 10/05/21 03:30 10/05/21 04:00 Temperature 97.8 F 97.9 F 98 F Pulse Rate Pulse Rate [Left P ulse Oximeter] 92 92 90 Pulse Rate [Pulse Oximeter] Respiratory Rate 26 H 24 24 Blood Pressure Blood Pressure [Le ft Upper Arm] Blood Pressure [Ri ght Arm] 137/84 134/82 168/97 H Pulse Oximetry 93 93 90 Oxygen Delivery Me thod Aerosol Mask Nasal Cannula Nasal Cannula Oxygen Flow Rate 10 2 2 10/05/21 04:30 10/05/21 05:00 10/05/21 06:00 Temperature 98.1 F 98.0 F 97.9 F Pulse Rate Pulse Rate [Left P ulse Oximeter] 94 92 92 Pulse Rate [Pulse Oximeter] Respiratory Rate 22 22 20 Blood Pressure Blood Pressure [Le ft Upper Arm] Blood Pressure [Ri ght Arm] 173/103 H 143/78 H 155/93 H Pulse Oximetry 92 92 93 Oxygen Delivery Me thod Nasal Cannula Nasal Cannula Nasal Cannula Oxygen Flow Rate 2 2 2 10/05/21 06:30 Temperature 98.2 F Pulse Rate Pulse Rate [Left P ulse Oximeter] 96 Pulse Rate [Pulse Oximeter] Respiratory Rate 22 Blood Pressure Blood Pressure [Le ft Upper Arm] Blood Pressure [Ri ght Arm] 146/89 H Pulse Oximetry 91 Oxygen Delivery Me thod Nasal Cannula Oxygen Flow Rate 2 Labs/Imaging Labs Labs: Pending this morning. Progress Note: A&P Assessment and plan (1) Perforation bowel: Status: Acute Assessment and Plan: Patient is POD 0 exploratory laparotomy, colonic resection and end colostomy for perforated diverticulitis. Evidence on imaging and intra op of retroperitoneal air/contamination. A left lateral drain was left in place with minimal sanguinous drainage this morning. Stoma is healthy in appearance, no stool or gas in bag. Patient is having a lot of pain and utilizing narcotic pain medication, will try to optimize non narcotic pain control during the day. -NPO, ok for ice chips and sips -IVF -IV Zosyn -trend labs and fever curve -encourage ambulation -sarah knight this morning -scds, lovenox to start tomorrow for DVT ppx
--- NOTE | 2021-10-05 13:10 | P.GSOP_ITS ---
Operative Note Date of procedure: 10/05/21 Type of Procedure: 1. Exploratory laparotomy 2. Left hemicolectomy 3. Mobilization of the splenic flexure 4. End transverse colostomy Procedure Description: After discussing the risks and benefits of the procedure, the patient signed informed consent.? The operative site was marked and the patient was brought to the operating room and placed on the operating table in supine position.? Care was taken to pad the patient's pressure points.?? The patient was then intubated by anesthesia.? A Lua catheter was placed in the operating room.? The operative site was then prepped and draped in the usual sterile fashion.? A ti me-out was then performed. A large midline incision was made with a 10 scalpel around the umbilicus. Dissection was carried down with electrocautery to the fascia. The fascia was incised with cautery. The peritoneum was sharply incised to enter the abdomen. The incision was then extended superiorly and inferiorly. No evidence of any fecal contamination or purulence within the abdomen. Dr. Lobo arrived to the operating room at this point to help assist with the procedure, given the complexity of the case. The Omni retractor was brought onto the field and patient was placed in Trendelenburg with left side up. I gently packed the small bowel into the right upper quadrant in order to expose the left colon. I was able to identify a redundant sigmoid colon, which was soft and healthy in appearance. Palpation was continued toward the splenic flexure where a length of inflamed colon and associated abscess was appreciated on the proximal descending colon. I then lengthened my incision cephalad several cm to better expose the area, given the location of diseased colon. Once this was done again the Omni retractors were placed and the small bowel moved into the right abdomen. I helped assist with retraction at this point medially, will Dr. Lobo helped retract and incised the lateral peritoneal attachments. We continued with our dissection along the exposed white line of Toldt using a right angle. Dissection was carried to the splenic flexure. Once we reach the spleen we utilized the LigaSure device to divide the splenic colic ligaments and retract the colon inferiorly. This portion of the procedure was made difficult secondary to patient's body habitus and surrounding inflammation from the perforation. Due to the difficulty and stacked: Along the retroperitoneum, we elected to identify the proximal transverse colon in find a point of transection. We utilized the LigaSure device to enter the lesser sac through the gastrocolic ligament. The superior aspect to transverse colon was then mobilized up to the splenic angle. Once this was done an area of the transverse colon that was disease free and freely mobile was selected for transection. I created a mesenteric window and passed 100 mm TRISTON stapler. The colon was transected in the staple line inspected, with no active bleeding identified. Small mesenteric vessels were ligated with suture and the LigaSure, to mobilize the proximal portion of transverse colon and allow for a colostomy to be created at the end of the case. The distal transected end of the transverse colon was then further mobilized around the splenic flexure, carefully taking off splenic colic ligaments. Once we reached the inflammatory mass, that was adherent to the retroperitoneum we were able to dissect through the tissue with cautery and the LigaSure device. We entered a cavity that contained some stool and necrotic tissue. This did appear to track into the retroperitoneum and was further opened up to allow for drainage. Once the left colon was completely mobilized the mesenteric vessels were dissected free with the LigaSure device. The left colic artery was identified and doubly ligated with silk suture. An area of dissection on the distal descending colon was identified for distal point of transection. Again I cleared off the mesentery and associated epiploic fat. I fired a 100 mm TRISTON bowel load stapler to transect the bowel. The specimen was then sent to pathology with a stitch marking the distal aspect. These staple line was inspected for bleeding, a small arterial bleed was seen with hemostasis controlled via silk stitch. Two 0 Prolene was used to tag each corner of the staple line, in order to assist with identification during any future surgical procedures. The wound bed was examined for hemostasis. Again I examined the abscess cavity and ensured that there was no undrained collection. A 15 Setswana drain was left in the left lateral abdomen. Attention was then directed to the end colostomy formation. A site was identified for stoma formation left lateral and just superior to the umbilicus. It a circular incision was made with cautery through the skin. Dissection was taken down into the subcutaneous tissues. Once the anterior fascia was identified a cruciate incision was made with cautery. The muscle was bluntly mobilized medial and lateral to identify the posterior fascia, where again a cruciate incision was made. Using [email or web address] instruments the end of the transverse colon was easily brought up onto the abdominal wall. Once we were done with this portion of the procedure we switched to clean instruments and Dr. Lobo and I changed our outer gloves. The midline incision was closed with 2 looped 0 Maxon sutures. The wound was irrigated with normal saline. Skin was brought together with skin staplers. Sterile dressings were then applied. Maturation of the ostomy was then performed. The staple line of the transverse colon was sharply excised with cautery. The colon was brooked in 3 places, to help with budding of the stoma. The colon was then matured to the skin circumferentially with interrupted 3 0 Vicryl suture. A stoma appliance was applied. The patient was then woken and transported to the recovery area in stable condition. ? The patient tolerated the procedure well. Findings: Perforation of the descending colon with retroperitoneal abscess and associated stool Anesthesia: SARAH Surgeon: Hailee Robertson MD Co-Surgeon: Saumya Lobo MD Estimated blood loss (mL): 150 Condition: stable Disposition: PACU
[2021-10-05] MEDS: ACETAMINOPHEN 325 MG TABLET 650 MG PO (15:06)
--- NOTE | 2021-10-05 19:23 | PC.NURSE ---
Patient requiring Dilaudid IV push for pain control. Receiving doses every 2-3 hours. PRN toradol and tylenol given as well. Lua removed - patient up to the bathroom and able to void. States that he had some burning and blood with urination but that has begun to clear. Pt taking in some sips of water and ice chips. Currently no drainage or gas in ostomy. Dressings to abdomen are intact with old drainage present. SCD's in place. Active ice to abdomen for comfort - Education offered on splinting and proper repositioning.
[2021-10-06] VITALS (11 sets, daily range): BP systolic 104–140; BP diastolic 67–80; PULSE 87–107; RESP 16–20; TEMP 36.7–37.1; O2SAT 88–95
[2021-10-06] MEDS: HYDROmorphone 0.5 mg/0.5 ml inj IVP ×5 (01:53→12:26)
[2021-10-06] MEDS: ACETAMINOPHEN 325 MG TABLET 650 MG PO ×3 (02:00→19:14)
[2021-10-06] MEDS: KETOROLAC 15 MG/ML inj IVP ×4 (03:30→23:25)
[2021-10-06] MEDS: LACTATED RINGERS 1000 ML 1,000 ML 125 ML IV ×3 (03:32→20:08)
[2021-10-06] MEDS: ONDANSETRON 2 MG/ML inj IVP ×5 (03:40→23:21)
[2021-10-06] MEDS: PIPERACILLIN/TAZOBACTAM 3.375 GM in 0.9 % SODIUM CHLORIDE Mini-bag 100 ML IVPB ×4 (03:56→22:23)
--- NOTE | 2021-10-06 04:35 | PC.NURSE ---
Addendum entered by Adolph Fischer RN 10/06/21 06:22: Up to ambulate the huerta again this AM. Albuterol Nebulizer given on return Addendum entered by Adolph Fischer RN 10/06/21 05:06: Allergies updated from old chart to include Talc from [employer] gloves. Original Note: Require 1LNC by 0400. Provided IS used to [id number]. HR tachy and regular in the low 100s, 94 while resting. Pain 5/10 gave Dilaudid 1mg q2h, Toradol 15mg prn and Tylenol 650mg for headache as pt unable to take caffeinated beverages. Pt had some nausea after Toradol given and was given Zofran 4mg w/relief and SO Maalox entered as pt reports hx GERD sx occasionally. Otherwise tolerating ice chips/sips. Right eye a little red so put in for SO eye drops. RUDI drained 10mls at 0000 was stripped and by 0400 drained 30mls serosanguineous drainage. Ice applied to incision, heat to back for c/o back pain. Incision had some old dark red drainage which turned out to just be on the tape so changed the tape. underlying gauze has some bloody drainage but not seeping thru. Ostomy intact little drainage no flatus. Line of appliance seal seems to be overlying the dressing so that might be a problem later. Bowel tones absent and abdomen is soft and generally tender to light palpation. Pt was able to ambulate the halls x1 zonia well at 0000. Pt has been up in chair all nite per request. Voiding in BR orange urine c/o some pain and hesitancy. Ind w/cares.
[2021-10-06] MEDS: CARBOXYMETHYLCELLULOSE (REFRESH PLUS) TEARS 1 DROP EYE-BOTH (06:02)
[2021-10-06] MEDS: ALBUTEROL SULFATE 2.5 MG/3 ML VIAL.NEB NEB (06:11)
[2021-10-06 07:14] LABS: Basophils Percent Auto 0.2 % (0.0-3.0); Eosinophils Percent Auto 0.4 % (0.0-7.0); Hematocrit 41.1 % (37.0-53.0); Hemoglobin* 13.6 gm/dL (13.5-17.5); Immature Granulocytes Abs Auto 0.03 K/uL (0.00-0.30); Mean Corpuscular HGB Conc 33 gm/dL (32-36); Mean Corpuscular Hemoglobin 29 pg (26-34); Mean Corpuscular Volume 89 fL (80-100); Monocytes Percent Auto 7.7 % (0.0-11.0); Neutrophils Percent Auto 81.5 % (42.0-72.0); Platelet Count* 262 K/uL (140-440); RDW Coefficient of Variation % 14.4 % (11.5-15.5); Red Blood Count 4.64 m/uL (4.30-5.90); White Blood Count* 12.25 K/uL (4.50-11.00)
[2021-10-06 07:22] LABS: Slide Review Reflex No
[2021-10-06 07:25] LABS: Chloride* 101 mmol/L (96-114); Sodium* 135 mmol/L (135-149)
[2021-10-06 07:26] LABS: Potassium* 4.1 mmol/L (3.6-5.1)
[2021-10-06 07:28] LABS: Carbon Dioxide* 22 mmol/L (20-32); Creatinine* 0.9 mg/dL (0.5-1.5); Est. Creatinine Clearance* 100.99; Estimated Glomerular Filt Rate 110 ml/min
[2021-10-06 07:29] LABS: Blood Urea Nitrogen* 14 mg/dL (5-24); Calcium* 8.7 mg/dL (8.4-10.6); Glucose* 100 mg/dL (60-115)
[2021-10-06] MEDS: OXYMETAZOLINE 0.05% NASAL SPRAY 1 SPRAY NOSTRIL-B (08:10)
[2021-10-06] MEDS: OXYCODONE 5 MG TABLET PO ×4 (09:22→23:20)
--- NOTE | 2021-10-06 09:29 | PM.GSPN ---
Subjective Subjective Date Seen: 10/06/21 Interval history: Patient is doing okay this morning. Main complaint is of a headache associated with caffeine withdrawal. He denies feeling hungry. Has not yet had gas in his bag, but feels like things are starting to move. He does continue to have abdominal pain over the incision, this is stable if not slightly better compared to yesterday. Has been burping, denies any nausea. Exam Narrative: Exam Narrative: General: Alert and oriented, no acute distress. Sitting in a chair. Respiratory: Nasal cannula in place with 2 L, equal breath rise bilaterally. CV: Regular rhythm rate, well perfused Abdomen: Soft, mild distention, appropriately tender over incision sites without guarding or rebound. Stoma is beefy red with a small amount of blood in the bag, no gas or stool. Left lateral drain with minimal dark sanguinous output. Const: Vital Signs, click to edit/add: Vital Signs - 24 hr 10/05/21 10:19 10/05/21 11:26 10/05/21 11:00 Temperature 99 F 98.8 F 99 F Pulse Rate [Left P ulse Oximeter] 98 Respiratory Rate 20 Blood Pressure [Ri ght Arm] 131/72 Pulse Oximetry 93 Oxygen Delivery Me thod Nasal Cannula Oxygen Flow Rate 2 10/05/21 15:06 10/05/21 16:07 10/05/21 16:25 Temperature 99 F 99 F 99 F Pulse Rate [Left P ulse Oximeter] Respiratory Rate Blood Pressure [Ri ght Arm] Pulse Oximetry Oxygen Delivery Me thod Oxygen Flow Rate 10/05/21 15:00 10/05/21 15:00 10/05/21 17:09 Temperature 99 F 99 F Pulse Rate [Left P ulse Oximeter] 98 Respiratory Rate 20 18 Blood Pressure [Ri ght Arm] 121/80 Pulse Oximetry 93 Oxygen Delivery Me thod Nasal Cannula Oxygen Flow Rate 2 10/05/21 19:25 10/05/21 21:35 10/05/21 22:34 Temperature 98.4 F 98.4 F 98.4 F Pulse Rate [Left P ulse Oximeter] 90 Respiratory Rate 18 Blood Pressure [Ri ght Arm] 137/87 Pulse Oximetry 96 Oxygen Delivery Me thod Nasal Cannula Oxygen Flow Rate 2 10/06/21 00:06 10/06/21 04:30 10/06/21 04:31 Temperature 98.4 F 98.5 F Pulse Rate [Left P ulse Oximeter] 107 H 103 H Respiratory Rate 16 16 Blood Pressure [Ri ght Arm] 127/80 104/67 Pulse Oximetry 93 88 90 Oxygen Delivery Me thod Room Air Room Air Nasal Cannula Oxygen Flow Rate 1 10/06/21 09:21 Temperature 98.6 F Pulse Rate [Left P ulse Oximeter] Respiratory Rate Blood Pressure [Ri ght Arm] Pulse Oximetry Oxygen Delivery Me thod Oxygen Flow Rate Labs/Imaging Labs Labs: CBC this morning with down trending leukocytosis (18--12). He has had a drop in his hemoglobin, (16.6--13.6) this likely represents postoperative blood loss, with continued minimal output from his left lateral drain. No concern for ongoing bleeding. BMP is within normal limits, creatinine 0.9. Imaging Imaging: No new imaging this morning Progress Note: A&P Assessment and plan (1) Perforation bowel: Status: Acute Assessment and Plan: Patient is POD 1 exploratory laparotomy, colonic resection and end colostomy for perforated diverticulitis. Evidence on imaging and intra op of retroperitoneal air/contamination. A left lateral drain was left in place with continued sanguinous drainage this morning. This is currently minimal with no concern for ongoing bleeding. Labs do show a drop in his hemoglobin, which does likely represent postoperative blood loss and dilution. Will continue to trend. Patient is continuing to require lot of IV narcotic pain medicine. Will transition to nonnarcotic Tylenol, Toradol and more oral medications as tolerated. Patient is okay to have a red bull this morning to help with his caffeine headache. Will hold off on any further diet until evidence of return of bowel function. -NPO, ok for ice chips/sips and Red bull this morning -IVF -IV Zosyn, will need to continue to complete a 14 day course. -trend labs and fever curve -encourage ambulation -scds, lovenox for DVT ppx
[2021-10-06] MEDS: ENOXAPARIN 40 MG/0.4 ML INJ SUBCUT (10:28)
--- NOTE | 2021-10-06 18:47 | PC.NURSE ---
Patient transitioned to oral pain medication today. Taking Oxycodone PRN along with zofran to prevent nausea. PRN Toradol and tylenol given as well. Bowel sounds are active in all four quadrants however no gas in ostomy bag. Voiding with complaints of hesitancy and burning. Active ice to abdomen. Ice to neck for headache. Sipped on a Red bull today throughout the day and this also helped with headache. Dr. Robertson removed patient's abdominal dressing. Incision was well approximated and free of redness, sky were intact. Per patient's request - bandage was placed over incision for comfort/protection.
[2021-10-06] MEDS: SODIUM CHLORIDE 0.9 % (FLUSH) 10 ML SYRINGE 5 ML IVF (22:23)
[2021-10-07] MEDS: ACETAMINOPHEN 325 MG TABLET 650 MG PO ×3 (03:19→19:38)
[2021-10-07] MEDS: OXYCODONE 5 MG TABLET PO ×5 (03:19→19:58)
[2021-10-07] MEDS: ONDANSETRON 2 MG/ML inj IVP ×4 (03:21→15:54)
[2021-10-07] MEDS: LACTATED RINGERS 1000 ML 1,000 ML 125 ML IV ×2 (03:25→10:19)
[2021-10-07] MEDS: PIPERACILLIN/TAZOBACTAM 3.375 GM in 0.9 % SODIUM CHLORIDE Mini-bag 100 ML IVPB ×4 (03:32→22:01)
[2021-10-07 03:55] VITALS: BP 119/63; PULSE 90; RESP 16; TEMP 37.2; O2SAT 95
[2021-10-07 06:08] LABS: Basophils Percent Auto 0.3 % (0.0-3.0); Eosinophils Percent Auto 2.4 % (0.0-7.0); Hematocrit 40.8 % (37.0-53.0); Hemoglobin* 13.4 gm/dL (13.5-17.5); Immature Granulocytes Abs Auto 0.01 K/uL (0.00-0.30); Lymphocytes Percent Auto 12.1 % (20-44); Mean Corpuscular HGB Conc 33 gm/dL (32-36); Mean Corpuscular Hemoglobin 29 pg (26-34); Mean Corpuscular Volume 88 fL (80-100); Monocytes Percent Auto 7.5 % (0.0-11.0); Neutrophils Percent Auto 77.6 % (42.0-72.0); Platelet Count* 322 K/uL (140-440); RDW Coefficient of Variation % 14.3 % (11.5-15.5); Red Blood Count 4.65 m/uL (4.30-5.90)
[2021-10-07 06:09] LABS: Slide Review Reflex No
--- NOTE | 2021-10-07 06:23 | PC.NURSE ---
Shift Note -: Pt pleasant and cooperative, VSS, afebrile, abd wound dressing CDI, ostomy stoma bright beefy red, surrounding skin well approximated and pink. Pt is passing flatus thru the stoma, Pt ed and demonstration provided on burping ostomy bag as well as what to expect for a first stool through the ostomy. Urinary output adequate, Pt reports reduced urinary hesitancy. Pt up walking in huerta x2. Pain controlled with combination of medications, cold ice pack therapy and walking. See eMAR for medication administration.
[2021-10-07 07:00] VITALS: BP 136/83; PULSE 79; RESP 16; TEMP 37; O2SAT 94
[2021-10-07] MEDS: KETOROLAC 15 MG/ML inj IVP ×2 (07:41→19:39)
[2021-10-07] MEDS: ENOXAPARIN 40 MG/0.4 ML INJ SUBCUT (10:16)
[2021-10-07] MEDS: SODIUM CHLORIDE 0.9 % (FLUSH) 10 ML SYRINGE 5 ML IVF ×2 (10:18→22:02)
[2021-10-07 11:00] VITALS: RESP 18; TEMP 37; O2SAT 92
--- NOTE | 2021-10-07 11:00 | PM.GSPN ---
Subjective Subjective Date Seen: 10/07/21 Interval history: Patient is doing well this morning. He did take a shower and shave, which made him feel ?great?. He continues to have abdominal pain, but it is becoming more tolerable and well controlled with the oral pain medications. He has been having a lot of gas in his ostomy bag and learning how to ?burp the bag?. No stool. He has been taking Zofran every 4 hours, which he thinks is from taking pills on an empty stomach. He is feeling very hungry. He has been tolerating some clear liquids and red bull without difficulty. Exam Narrative: Exam Narrative: General: Alert and oriented, no acute distress. Sitting in a chair comfortably. Respiratory: Equal breath rise bilaterally, maintained on room air CV: Regular rhythm rate, well perfused Abdomen: Soft, nondistention, appropriately tender over incision. Dressings were taken down sky in place clean/dry/intact with no surrounding erythema or induration. No concern for infection. Stoma remains in place, beefy red in appearance with gas within bag. The left-sided drain with minimal sanguinous output. Const: Vital Signs, click to edit/add: Vital Signs - 24 hr 10/06/21 12:00 10/06/21 15:00 10/06/21 19:00 Temperature 98.4 F 98.0 F Pulse Rate [Left P ulse Oximeter] 91 87 95 Respiratory Rate 16 16 20 Blood Pressure [Ri ght Arm] 122/68 140/79 H Pulse Oximetry 92 95 Oxygen Delivery Me thod Room Air Room Air 10/06/21 21:28 10/06/21 22:27 10/07/21 03:55 Temperature 98.8 F 99.0 F Pulse Rate [Left P ulse Oximeter] 95 89 90 Respiratory Rate 20 18 16 Blood Pressure [Ri ght Arm] 129/73 119/63 Pulse Oximetry 94 95 Oxygen Delivery Me thod Room Air Room Air 10/07/21 07:00 10/07/21 07:00 Temperature 98.6 F Pulse Rate [Left P ulse Oximeter] 79 79 Respiratory Rate 16 16 Blood Pressure [Ri ght Arm] 136/83 Pulse Oximetry 94 Oxygen Delivery Me thod Room Air Labs/Imaging Labs Labs: CBC with white blood cell count 11. Hemoglobin remains stable at 13.4 Imaging Imaging: No new. Progress Note: A&P Assessment and plan (1) Perforation bowel: Status: Acute Assessment and Plan: Patient is POD 2 exploratory laparotomy, colonic resection and end colostomy for perforated diverticulitis. Evidence on imaging and intra op of retroperitoneal air/contamination. A left lateral drain remains in place with minimal sanguinous output. Afebrile and vital signs stable. Patient has started to pass gas and is feeling more hungry this morning. No stoma within his ostomy bag yet. His abdominal pain is improved with control on oral medications. He has been ambulating the huerta without difficulty. -okay to slowly advance diet to full liquids for lunch and regular for dinner if tolerated -p.o. pain medications as needed -IV Zofran p.r.n. -IV Zosyn, will plan to transition to oral antibiotics tomorrow to continue for a 14 day course -repeat CBC tomorrow morning -continue with RUDI drain at this time, will plan for removal prior to discharge -encourage ambulation -SCDs, Lovenox for DVT prophylaxis Anticipate discharge to home in the next 1-2 days. Would want patient to be tolerating a regular diet and has stool coming from his ostomy.
[2021-10-07] MEDS: CARBOXYMETHYLCELLULOSE (REFRESH PLUS) TEARS 1 DROP EYE-BOTH (11:45)
[2021-10-07 15:30] VITALS: BP 144/83; PULSE 73; RESP 16; TEMP 36.8; O2SAT 98
--- NOTE | 2021-10-07 15:33 | PC.NURSE ---
Patient rating pain in his abdomen at a 5-7/10. PRN oxycodone and Toradol given for pain. Pt having flatus in bag and able to burp independently. Bowel sounds are active. Pt is up independently to the BR and walking in the huerta. Keri updated on new ostomy patient and plans to see pt Friday for edcuation.
--- NOTE | 2021-10-07 18:46 | PC.NURSE ---
Shift [id number]- Patient states pain is increased somewhat after walk to 5/10. Oxycodone and zofran given with relief. RN teaches RUDI bulb stripping/draining to patient. He also understands that his need for zofran may be less when he is able to start eating more with oxycodone administration. He eats half of mashed potatoes and turkey and an applesauce and tolerates well. He is independently burping ostomy bag. Incision covering is clean, dry and intact. He is up independently and tolerates well.
[2021-10-07 21:00] VITALS: BP 156/85; PULSE 77; RESP 18; TEMP 36.7; O2SAT 95
[2021-10-07 23:00] VITALS: PULSE 75; RESP 18
[2021-10-08] VITALS (8 sets, daily range): BP systolic 127–153; BP diastolic 78–88; PULSE 71–97; RESP 16–26; TEMP 36.5–37.3; O2SAT 95–97
[2021-10-08] MEDS: OXYCODONE 5 MG TABLET PO ×7 (00:14→23:51)
[2021-10-08] MEDS: ONDANSETRON 2 MG/ML inj IVP (00:15)
[2021-10-08] MEDS: SODIUM CHLORIDE 0.9 % (FLUSH) 10 ML SYRINGE 5 ML IVF ×3 (00:16→21:30)
[2021-10-08] MEDS: ACETAMINOPHEN 325 MG TABLET 650 MG PO ×6 (03:14→23:51)
[2021-10-08] MEDS: KETOROLAC 15 MG/ML inj IVP ×4 (03:14→21:29)
[2021-10-08] MEDS: PIPERACILLIN/TAZOBACTAM 3.375 GM in 0.9 % SODIUM CHLORIDE Mini-bag 100 ML IVPB ×2 (03:37→10:01)
--- NOTE | 2021-10-08 05:24 | PC.NURSE ---
END OF SHIFT NOTE: PT PLEASANT AND COOPERATIVE. VSS AND WNL ON RA. AFEBRILE. PT DENIES SOB, CP AND N/V. PT RATES ABDOMINAL PAIN 3-5/10 WITH RELIEF FROM ACTIVE ICE, ADMINISTRATION OF PRN OXYCODONE AND PRN TORADOL. PT RATED HEADACHE 8/10 WITH SOME RELIEF FROM ACTIVE ICE TO BACK OF NECK, CALMING AROMATHERAPY PATCH AND PRN TYLENOL. ABDOMINAL INCISION IS COVERED WITH BANDAGE PER PT REQUEST. DRESSING IS CDI. RUDI DRAIN IS PATENT, STRIPPED WITH SEROSANGUINEOUS DRAINAGE. PT AMBULATES INDEPENDENTLY WITHIN ROOM. OSTOMY IS BEEFY RED AND PASSING GAS. PT BURPS BAG INDEPENDENTLY.
[2021-10-08 06:39] LABS: Basophils Absolute Auto 0.03 K/uL (0.00-0.30); Basophils Percent Auto 0.3 % (0.0-3.0); Eosinophils Absolute Auto 0.32 K/uL (0.00-0.50); Eosinophils Percent Auto 3.6 % (0.0-7.0); Hematocrit 38.3 % (37.0-53.0); Hemoglobin* 12.6 gm/dL (13.5-17.5); Immature Granulocytes Abs Auto 0.09 K/uL (0.00-0.30); Lymphocytes Percent Auto 14.4 % (20-44); Mean Corpuscular HGB Conc 33 gm/dL (32-36); Mean Corpuscular Hemoglobin 29 pg (26-34); Mean Corpuscular Volume 88 fL (80-100); Monocytes Percent Auto 7.8 % (0.0-11.0); Neutrophils Percent Auto 72.9 % (42.0-72.0); Platelet Count* 328 K/uL (140-440); Red Blood Count 4.36 m/uL (4.30-5.90); White Blood Count* 8.86 K/uL (4.50-11.00)
[2021-10-08 06:45] LABS: Slide Review Reflex No
[2021-10-08] MEDS: CYCLOBENZAPRINE HCL 10 MG TABLET PO ×3 (09:58→23:52)
--- NOTE | 2021-10-08 09:58 | PC.NURSE ---
Ostomy teaching: I have met with the patient and his . Did have him view a couple of teaching videos: How to measure your stoma, About your Colostomy, How to apply a One-piece drainable pouch, How to apply two-piece drainable pouch, How to empty a drainable pouch. He said the videos were very helpful. Asked if he had any questions after watching the videos. He said No they were pretty straight forward. We then with his at bedside went through the steps of how to change the pouch and what to watch for as far as skin break down and signs of infection and what to look for as far as what his stoma looks like. Currently stoma is beefy red with some old blood noted. measured stoma at 40 cm. Explain to him the importance of measuring the stoma with each change as over the next several weeks will see it change. Both him and the appear to understand the steps of changing the device. Explain that the appliance should last anywhere from 3-5 days and as he takes the appliance down to look to see if he had any leakage. Explain that will want to change it more towards the 3 days than 5 to hopefully prevent skin breakdown. If he notices skin breakdown will want to let the someone know. Will be setting him up to follow up in the wound center after discharge with Samara LINTON in the wound health center. Still awaiting the return of bowel function.
[2021-10-08] MEDS: ENOXAPARIN 40 MG/0.4 ML INJ SUBCUT (10:38)
--- NOTE | 2021-10-08 11:18 | P.GSPN_ITS ---
Subjective Subjective Date Seen: 10/08/21 Interval history: Patient is doing well this morning. He is starting to feel overwhelmed with all the changes in the last few days. Has had gas in his stoma, no stool. Was able to tolerate some regular food last night. Denies any nausea or emesis. Main complaint is neck soreness and a headache. He thinks it could be from sleeping in the hospital bed the last few days. No other concerns. Exam 2 Narrative: Exam Narrative: General: Alert and oriented, no acute distress. Sitting in a chair comfortably. Respiratory: Equal breath rise bilaterally, maintained on room air CV: Regular rhythm rate, well perfused Abdomen: Soft, nondistention, appropriately tender over incision. Dressings were taken down sky in place clean/dry/intact with no surrounding erythema or induration. No concern for infection. Stoma remains in place, beefy red in appearance with gas within bag. The left-sided drain with minimal sanguinous output. Const: Vital Signs, click to edit/add: Vital Signs - 24 hr 10/07/21 15:30 10/07/21 21:00 10/07/21 23:00 Temperature 98.2 F 98.1 F Pulse Rate [Left P ulse Oximeter] 73 77 75 Respiratory Rate 16 18 18 Blood Pressure [Ri ght Arm] 144/83 H 156/85 H Pulse Oximetry 98 95 Oxygen Delivery Me thod Room Air Room Air 10/08/21 00:15 10/08/21 03:48 10/08/21 07:00 Temperature 98.1 F 99.2 F Pulse Rate [Left P ulse Oximeter] 75 74 92 Respiratory Rate 18 16 26 H Blood Pressure [Ri ght Arm] 127/78 144/86 H Pulse Oximetry 97 95 Oxygen Delivery Me thod Room Air Room Air 10/08/21 07:00 Temperature 98.9 F Pulse Rate [Left P ulse Oximeter] 97 Respiratory Rate 26 H Blood Pressure [Ri ght Arm] 135/80 Pulse Oximetry 97 Oxygen Delivery Me thod Room Air Labs/Imaging Labs Labs: CBC this morning, no evidence of leukocytosis. Slight decrease in his hemoglobin 13.4--12.6. He is continuing to have sanguinous output from his drainage, but it has been very minimal and decreasing in amount Progress Note: A&P Assessment and plan (1) Perforation bowel: Status: Acute Assessment and Plan: Patient is POD 3 exploratory laparotomy, colonic resection and end colostomy for perforated diverticulitis. Evidence on imaging and intra op of retroperitoneal air/contamination. A left lateral drain remains in place output is more sanguinous in appearance than I would like, but continues to be minimal. He has had a slight down trend in his hemoglobin 13.4--12.6. Will continue with the drain in place at this time and monitor the output. Afebrile and vital signs stable. Tolerating a regular diet. Is having gas in his stoma, no stool just yet. -regular diet -p.o. pain medications as needed. Patient given some Flexeril this morning with improvement in his neck pain and headache. -IV Zofran p.r.n. -IV Zosyn now transitioned to Augmentin. -repeat hemoglobin tomorrow -continue with RUDI drain at this time, will plan for removal prior to discharge -encourage ambulation -SCDs, Lovenox for DVT prophylaxis Anticipate discharge to home tomorrow. Patient is scheduled to follow-up in the ostomy clinic on Friday.
--- NOTE | 2021-10-08 12:01 | NUTR.NU ---
Nutrition Update: Patient is post op day 3 of exploratory laparotomy, colonic resection and end colostomy for perforated diverticulitis. Patient was provided diet education related to new colostomy. He agreed to receive diet education without designated caregiver present.? Education provided on following a low fiber diet for the next ~4 weeks or per MD recommendation.? Education included recommendations on following a low-fiber diet of less than 13 grams of fiber per day and included foods that are recommended and not recommended.? Verbal and written information as well as sample menus provided from [facility] on nutrition therapy for colostomy and low-fiber diet.? Patient verbalized understanding and had no questions or concerns.? RDN's contact information was provided and patient was encouraged to contact RDN with questions.
[2021-10-08] MEDS: AMOXICILLIN/CLAVULANATE 875 mg/125 mg TABLET PO (18:08)
--- NOTE | 2021-10-08 18:25 | PC.NURSE ---
End of Shift: Patient pleasant and cooperative. Patient vitally stable, lungs clear, BS WNL, IV's SL. Patient is independent in room. Patient has rated pain at most 8/10, beginning of shift patient had a headache, that has resolved. Tylenol, 10 mg of oxy, and toradol given when due, all prn's. Patient's RUDI drained 95cc of bloody fluid, stripped and drained Q4H. Ostomy nippled and intact with no output. Patient's dressings were changed along with gown as abdominal incision began to bleed a small amount, no further bleeding has occurred. Patient tolerating regular diet, eating all of lunch and 75% of dinner. Patient urinating well.
[2021-10-09] VITALS (7 sets, daily range): BP systolic 128–140; BP diastolic 77–91; PULSE 73–84; RESP 18–24; TEMP 36.8–37.2; O2SAT 96–98
[2021-10-09] MEDS: ACETAMINOPHEN 325 MG TABLET 650 MG PO ×5 (04:19→20:37)
[2021-10-09] MEDS: OXYCODONE 5 MG TABLET PO ×5 (04:19→20:37)
--- NOTE | 2021-10-09 06:27 | PC.NURSE ---
Pt pleasant and cooperative. Calls appropriately. Indep in room & halls. c/o abd pain, see eMAr for meds given. Ice pack to abd. RUDI drain patent and draining ~ 30mL bloody output Q4h. Dressing around RUDI site changed, 2 gauze pads saturated with serosanguineous?output.?Ostomy beefy red, no stool, continues to pass flatus. Bowel sounds active. VSS. Afebrile. ?
[2021-10-09 07:20] LABS: Hemoglobin* 13.4 gm/dL (13.5-17.5)
[2021-10-09] MEDS: AMOXICILLIN/CLAVULANATE 875 mg/125 mg TABLET PO ×2 (08:12→19:00)
[2021-10-09] MEDS: SODIUM CHLORIDE 0.9 % (FLUSH) 10 ML SYRINGE 5 ML IVF ×3 (09:08→20:38)
[2021-10-09] MEDS: ENOXAPARIN 40 MG/0.4 ML INJ SUBCUT (12:39)
[2021-10-09] MEDS: DOCUSATE SODIUM 100 MG CAPSULE PO (16:12)
--- NOTE | 2021-10-09 19:12 | PC.NURSE ---
Pt. ambulating in hallway independently. Tolerating regular diet. Bowel sounds active. Passing flatus via colostomy but no stool yet. Pain controlled with Oxycodone and Tylenol.
[2021-10-09] MEDS: KETOROLAC 15 MG/ML inj IVP (20:37)
--- NOTE | 2021-10-09 23:17 | PC.NURSE ---
[id number]: Pt. up independently in hallway & room. Rating abdominal pain 5-7/10, alleviated w/PRN pain meds. No change in scant amount of bloody output from stoma this shift. Pt. passing flatus into appliance, but no stool yet. Pt. notes cramping, requested prune juice with water (50/50) x2, and wanted to know when able to have next dose of colace. RN cautioned him to move slowly with Colace and juice to not increase his pain. Pt. in agreement. Vitals unremarkable.
[2021-10-10] VITALS: BP 137/83; PULSE 78; RESP 18; TEMP 36.6; O2SAT 98
[2021-10-10] MEDS: ACETAMINOPHEN 325 MG TABLET 650 MG PO ×3 (01:35→11:59)
[2021-10-10] MEDS: OXYCODONE 5 MG TABLET PO ×3 (01:36→11:59)
[2021-10-10] MEDS: CYCLOBENZAPRINE HCL 10 MG TABLET PO ×2 (01:38→06:29)
[2021-10-10 02:39] VITALS: BP 152/97; PULSE 73; RESP 24; TEMP 36.9; O2SAT 99
[2021-10-10] MEDS: DOCUSATE SODIUM 100 MG CAPSULE PO (06:29)
--- NOTE | 2021-10-10 06:42 | PC.NURSE ---
23-07:pt pleasant and cooperative. Indep.?c/o abd pain, see eMar for meds given. woke up at 0600 with a throbbing AYALA, PRN Tylenol given and ice to neck. VSS. Bowel sounds active. Passing flatus. Scant amount bloody output in ostomy bag. Dressings to abd CDI.
[2021-10-10] MEDS: AMOXICILLIN/CLAVULANATE 875 mg/125 mg TABLET PO (07:46)
[2021-10-10 08:00] VITALS: BP 157/101; PULSE 77; RESP 16; TEMP 36.6; O2SAT 98
[2021-10-10] MEDS: ENOXAPARIN 40 MG/0.4 ML INJ SUBCUT (10:01)
[2021-10-10] MEDS: SODIUM CHLORIDE 0.9 % (FLUSH) 10 ML SYRINGE 5 ML IVF (10:01)
--- NOTE | 2021-10-10 13:07 | PM.GSPN ---
Subjective Subjective Date Seen: 10/09/21 Interval history: Patient is doing well, pain is controlled with oral medications. Very anxious to go home, continues to pass gas but no stool through ostomy yet. No acute concerns. Exam Narrative: Exam Narrative: General: Alert and oriented, no acute distress. Sitting in a chair comfortably. Respiratory: Equal breath rise bilaterally, maintained on room air CV: Regular rhythm rate, well perfused Abdomen: Soft, nondistention, appropriately tender over incision. Dressings were taken down sky in place clean/dry/intact with no surrounding erythema or induration. No concern for infection. Stoma remains in place, beefy red in appearance with gas within bag. The left-sided drain with minimal sanguinous output, removed at bedside today. Const: Vital Signs, click to edit/add: Vital Signs - 24 hr 10/09/21 16:20 10/09/21 19:20 10/09/21 19:21 Temperature 98.7 F 98.2 F Pulse Rate [Left P ulse Oximeter] 73 84 84 Respiratory Rate 18 18 18 Blood Pressure [Ri ght Arm] 128/87 130/77 Pulse Oximetry 97 96 Oxygen Delivery Me thod Room Air Room Air 10/09/21 23:00 10/10/21 00:00 10/10/21 02:39 Temperature 97.8 F 98.4 F Pulse Rate [Left P ulse Oximeter] 78 78 73 Respiratory Rate 18 18 24 Blood Pressure [Ri ght Arm] 137/83 152/97 H Pulse Oximetry 98 99 Oxygen Delivery Me thod Room Air Room Air 10/10/21 08:00 Temperature 97.8 F Pulse Rate [Left P ulse Oximeter] 77 Respiratory Rate 16 Blood Pressure [Ri ght Arm] 157/101 H Pulse Oximetry 98 Oxygen Delivery Me thod Room Air Labs/Imaging Labs Labs: Hemoglobin 13.4 and stable Progress Note: A&P Assessment and plan (1) Perforation bowel: Status: Acute Assessment and Plan: Patient is POD 4 exploratory laparotomy, colonic resection and end colostomy for perforated diverticulitis. Evidence on imaging and intra op of retroperitoneal air/contamination. Hemoglobin stable and drain continues to have minimal output, it was removed at bedside this morning without difficulty. His ostomy is passing gas but no stool. Once patient starts passing stool he is okay to discharge home, anticipate today versus tomorrow. -regular diet -p.o. pain medications as needed. Patient given some Flexeril this morning with improvement in his neck pain and headache. -IV Zofran p.r.n. -Augmentin. -encourage ambulation -SCDs, Lovenox for DVT prophylaxis Anticipate discharge to home once stool in ostomy bag.
--- NOTE | 2021-10-10 13:09 | P.DS_ITS ---
DS: Providers Provider Date Seen: 10/10/21 Date of admission: 10/05/21 02:09 Primary care physician: Jevon Brothers MD Admitting Clinician: Hailee Robertson MD Consults: 10/05/21 01:35 Consult to Physician [CONS] Routine Comment: Consulting Provider: Radha Quinonez Has provider been notified: Yes 10/07/21 15:23 Consult to Wound Care [CONS] Routine Comment: ostomy teaching Consulting Provider: Samara Zavala Attending Physician on discharge: Hailee Robertson MD DS: Summary Hospital Course Hospital Course: Patient was admitted with evidence of abdominal peritonitis and workup demon strating perforated diverticulitis with retroperitoneal contamination. There was evidence of retroperitoneal air extending into the mediastinum. Due to the patient's clinical presentation and workup, it was recommended that we proceed to the operating room with emergency surgery. He underwent an exploratory laparotomy, colonic resection and end ostomy. Postoperatively the patient did well. He continued on IV antibiotics, with normalization of his leukocytosis and fever curve. He was transition to oral antibiotics at the time of discharge. His stoma continued to appear healthy, with return of bowel function by postop day 5. At the time of discharge he was tolerating a regular diet, pain was well controlled with oral medications, he was ambulating independently and had return of bowel function. His left-sided RUDI drain was removed prior to discharge. Status at Discharge Functional status at discharge: independent ambulation Overall status at discharge: patient is progressing back to baseline Time Spent with Patient Time attestation: Total time spent providing and/or coordinating discharge services: Exam Narrative: Exam Narrative: General: Alert and oriented, no acute distress. Sitting in a chair comfortably. Respiratory: Equal breath rise bilaterally, maintained on room air CV: Regular rhythm rate, well perfused Abdomen: Soft, nondistention, appropriately tender over incision. Dressings were taken down sky in place clean/dry/intact with no surrounding erythema or induration. No concern for infection. Stoma remains in place, beefy red in appearance. Const: Vital Signs, click to edit/add: Vital Signs - 24 hr 10/09/21 16:20 10/09/21 19:20 10/09/21 19:21 Temperature 98.7 F 98.2 F Pulse Rate [Left P ulse Oximeter] 73 84 84 Respiratory Rate 18 18 18 Blood Pressure [Ri ght Arm] 128/87 130/77 Pulse Oximetry 97 96 Oxygen Delivery Me thod Room Air Room Air 10/09/21 23:00 10/10/21 00:00 10/10/21 02:39 Temperature 97.8 F 98.4 F Pulse Rate [Left P ulse Oximeter] 78 78 73 Respiratory Rate 18 18 24 Blood Pressure [Ri ght Arm] 137/83 152/97 H Pulse Oximetry 98 99 Oxygen Delivery Me thod Room Air Room Air 10/10/21 08:00 Temperature 97.8 F Pulse Rate [Left P ulse Oximeter] 77 Respiratory Rate 16 Blood Pressure [Ri ght Arm] 157/101 H Pulse Oximetry 98 Oxygen Delivery Me thod Room Air Discharge Plan Discharge Disposition: Home, Self-Care Date of Admission: 10/05/21 02:09 Attending Provider on Discharge: Hailee Robertson Consulting Providers: Radha Quinonez ; Samara Zavala Primary Care Provider: Jevon Brothers Condition: Unchanged Anticipated Discharge Date/Time: 10/09/21 11:44 Discharge Medications: New ondansetron 4 mg tablet,disintegrating 4 mg PO Q6H Qty: 20 0RF oxycodone 5 mg tablet 5 mg PO Q6H PRN (Reason: pain) Qty: 25 0RF senna 8.6 mg capsule 8.6 mg PO DAILY PRN (Reason: constipation) Qty: 90 0RF Rx Instructions: Please take stool softeners while on narcotic pain medicine. Stop if having greater than 2 stools per day amoxicillin-pot clavulanate 875-125 mg tablet 1 tab PO BID Qty: 20 0RF cyclobenzaprine 5 mg tablet 5 mg PO TID PRN (Reason: muscle spasm) Qty: 10 0RF Continued albuterol sulfate [Ventolin HFA] 90 mcg/actuation HFA aerosol inhaler 2 inh inhalation Q4H PRN testosterone cypionate 200 mg/mL oil 200 mg IM Q14D (DME) filter needles [BD Filter Needle-5 Micron] 19 x 1 1/2 needle See Rx Instructions .ROUTE .MEDSUPPLY Qty: 1 Label Comments: USE WITH TESTOSTERONE EVERY 2 WEEKS Rx Instructions: As directed magnesium oxide 400 mg (241.3 mg magnesium) tablet 400 mg PO DAILY Label Comments: TAKE 1 TABLET BY MOUTH EVERY DAY (DME) needle (disp) 23 gauge [Hypodermic [place]] 23 gauge x 1 needle See Rx Instructions .ROUTE .MEDSUPPLY Qty: 100 Label Comments: USE WITH TESTOSTERONE EVERY 2 WEEKS Rx Instructions: As directed (DME) BD Luer-Tawanda Syringe 1 mL syringe See Rx Instructions .ROUTE .MEDSUPPLY Qty: 1000 Label Comments: USE WITH TESTOSTERONE EVERY 2WEEKS Rx Instructions: As directed testosterone 20.25 mg/1.25 gram (1.62 %) gel in metered-dose pump 2 pump transdermal DAILY Discharge Orders: Discharge Order (Routine); Ordered 10/10/21 Ordered By: Hailee Robertson Patient Education: Cyclobenzaprine (By mouth) (Flexeril, Amrix, Fexmid, FusePaq Tabradol), Amoxicillin/Clavulanate Potassium (By mouth) (Augmentin, Augmentin..., Oxycodone, Rapid Release (By mouth), Ondansetron (By mouth) (Zofran, Zofran ODT, Zuplenz), Senna (By mouth) (Sen, Senna-lax), Colostomy Care (DC), Perforated Bowel (DC), Colostomy Creation (DC) Activity Restrictions/Additional Instructions: Activity as tolerated. Avoid strenuous activity. No lifting greater than 20 lb for 6 weeks. Activity Level: Activity as Tolerated and No strenuous activity Discharge Diet: Low Fiber Diet Detail: Low-fiber diet until seen for follow-up visit, at that time we will transition you to high-fiber. Follow Up Appointments: Hailee Robertson MD [Staff Physician] - (Two week follow-up 10/17/2021) Jevon Brothers MD [Primary Care Provider] - Samara Zavala CNP [Nurse Practitioner] - 10/12/21 3:00 pm (Wound Care Clinic) Forms: Work/Release Restrictions, MyHealth Info Instructions
--- NOTE | 2021-10-10 13:48 | PC.NURSE ---
Discharge: Patient pleasant and cooperative. Up independently. Had small amount of dark brown stool in ostomy bag today, has been having gas as well. IV removed. Vitals stable and WNL. Pain controlled with PRN medication. Discharge instructions, follow ups and medications reviewed with patient and , questions answered as needed. Patient discharged @ 1345, ambulated from unit, discharged to home.
== END 2021-10-10 13:45 | disposition home or self-care (01) | DRG 329 ==
LOC: ED 10-05 02:19 → SS 10-05 02:20 → MEDSURG 10-05 02:21
PROVIDERS: Admitting Provider Surgery; Emergency Provider Family Medicine; PCP Family Medicine; Visit Provider Surgery
PROC: (CPT 49000; principal; 2021-10-04 21:20)
DX: K57.20 Diverticulitis of large intestine with perforation and abscess without bleeding (principal); K65.9 Peritonitis, unspecified
CPT/HCPCS: 00790; 36415; 71260; 74177; 80048; 80053; 83605; 85018; 85025; 85651; 86140; 87040; 87635; 88307; 94640; 94761; 99140; 99284; 99285; 99291; A9270; J0131; J0330; J1100; J1170; J1650; J1885; J2270; J2405; J2543; J2704; J3010; J3475; J3490; J7030; J7120; Q9967

== ENCOUNTER 2021-10-12 14:24 | Outpatient (CLI) | payer OTHER, SELFPAY | END 2021-10-12 14:25 | disposition home or self-care (01) | PROVIDERS: PCP Family Medicine; Visit Provider Nurse Practitioner Family | DX: Z43.3 Encounter for attention to colostomy (principal) | CPT/HCPCS: 99213 ==

== ENCOUNTER 2021-10-16 10:55 | Outpatient (CLI) | payer OTHER, SELFPAY | END 2021-10-16 10:56 | disposition home or self-care (01) | PROVIDERS: PCP Family Medicine; Visit Provider Nurse Practitioner Family | DX: Z43.3 Encounter for attention to colostomy (principal) | CPT/HCPCS: 99213 ==

== ENCOUNTER 2021-10-26 13:55 | Outpatient (CLI) | payer OTHER, SELFPAY | END 2021-10-26 13:56 | disposition home or self-care (01) | LOC: WOUND 13:55 | PROVIDERS: PCP Family Medicine; Visit Provider Nurse Practitioner Family | DX: Z43.3 Encounter for attention to colostomy (principal) | CPT/HCPCS: 99213 ==

== ENCOUNTER 2021-11-09 14:02 | Outpatient (CLI) | payer OTHER, SELFPAY | END 2021-11-09 14:03 | disposition home or self-care (01) | PROVIDERS: PCP Family Medicine; Visit Provider Nurse Practitioner Family | DX: Z43.3 Encounter for attention to colostomy (principal) | CPT/HCPCS: 99212 ==

== ENCOUNTER 2022-01-02 11:53 | Outpatient (CLI) | payer OTHER, SELFPAY ==
[2022-01-02 13:48] LABS: Albumin* 4.8 g/dL (3.3-5.0); Chloride* 99 mmol/L (96-114); Potassium* 5.1 mmol/L (3.6-5.1); Sodium* 137 mmol/L (135-149)
[2022-01-02 13:50] LABS: Bilirubin Total* 0.6 mg/dL (0.1-1.5); Carbon Dioxide* 27 mmol/L (20-32); Cholesterol* 190 mg/dL (90-199); Estimated Glomerular Filt Rate 97 ml/min; Total Protein* 7.4 g/dL (6.0-8.3)
[2022-01-02 13:51] LABS: Alanine Aminotransferase* 33 U/L (4-50); Alkaline Phosphatase* 66 U/L (40-150); Aspartate Amino Transferase* 31 U/L (12-35); Blood Urea Nitrogen* 19 mg/dL (5-24); Calcium* 9.7 mg/dL (8.4-10.6); Glucose* 84 mg/dL (60-115); HDL Cholesterol* 52 mg/dL (>=40); LDL Cholesterol Calculated 101 mg/dL (<100); Triglycerides* 185 mg/dL (40-149)
[2022-01-03 13:09] LABS: Sex Hormone Binding Globulin 16 nmol/L (17-56); Testosterone, Adult Male 245 ng/dL (300-890); Testosterone, Free Calculation 60 pg/mL (47-244); Testosterone, Percentage Free 2.4 % (1.6-2.9)
== END 2022-01-02 11:54 | disposition home or self-care (01) ==
PROVIDERS: PCP Family Medicine; Visit Provider Family Medicine
DX: E78.5 Hyperlipidemia, unspecified (principal); R79.89 Other specified abnormal findings of blood chemistry
CPT/HCPCS: 80053; 80061; 84270; 84402; 84403

== ENCOUNTER 2022-04-04 08:10 | Outpatient (CLI) | payer OTHER, SELFPAY ==
[2022-04-04 13:29] LABS: Albumin* 4.7 g/dL (3.3-5.0); Chloride* 101 mmol/L (96-114); Potassium* 5.4 mmol/L (3.6-5.1); Sodium* 139 mmol/L (135-149)
[2022-04-04 13:31] LABS: Carbon Dioxide* 30 mmol/L (20-32); Estimated Glomerular Filt Rate 97 ml/min
[2022-04-04 13:32] LABS: Alanine Aminotransferase* 36 U/L (4-50); Alkaline Phosphatase* 55 U/L (40-150); Aspartate Amino Transferase* 31 U/L (12-35); Bilirubin Total* 0.8 mg/dL (0.1-1.5); Blood Urea Nitrogen* 20 mg/dL (5-24); Glucose* 102 mg/dL (60-115); Total Protein* 7.9 g/dL (6.0-8.3)
[2022-04-04 14:02] LABS: PSA Screen* 0.47 ng/mL (0.10-4.00)
[2022-04-06 01:20] LABS: Sex Hormone Binding Globulin 24 nmol/L (17-56); Testosterone, Adult Male 876 ng/dL (300-890); Testosterone, Free Calculation 210 pg/mL (47-244); Testosterone, Percentage Free 2.4 % (1.6-2.9)
== END 2022-04-04 08:11 | disposition home or self-care (01) ==
PROVIDERS: PCP Family Medicine; Visit Provider Family Medicine
DX: Z01.818 Encounter for other preprocedural examination (principal); E78.5 Hyperlipidemia, unspecified; R79.89 Other specified abnormal findings of blood chemistry; Z12.5 Encounter for screening for malignant neoplasm of prostate
CPT/HCPCS: 80053; 84153; 84270; 84402; 84403

== ENCOUNTER 2022-04-22 10:28 | Outpatient (CLI) | payer OTHER, SELFPAY | END 2022-04-22 10:29 | disposition home or self-care (01) | LOC: OP CLINIC 10:30 | PROVIDERS: PCP Family Medicine; Visit Provider Surgery | DX: K57.32 Diverticulitis of large intestine without perforation or abscess without bleeding (principal); K63.3 Ulcer of intestine; K57.30 Diverticulosis of large intestine without perforation or abscess without bleeding; T81.89XA Other complications of procedures, not elsewhere classified, initial encounter; Z93.3 Colostomy status | CPT/HCPCS: 44388; 45331; 88305; 99153; J2250; J3010 ==

== ENCOUNTER 2022-04-22 19:40 | Emergency (ER) | payer OTHER, SELFPAY ==
[2022-04-22 19:56] VITALS: BP 150/91; PULSE 89; RESP 16; TEMP 37.1; O2SAT 98; BMI 32.3
[2022-04-22 20:40] LABS: Basophils Absolute Auto 0.04 K/uL (0.00-0.30); Basophils Percent Auto 0.4 % (0.0-3.0); Eosinophils Absolute Auto 0.43 K/uL (0.00-0.50); Eosinophils Percent Auto 4.5 % (0.0-7.0); Hematocrit 49.4 % (37.0-53.0); Hemoglobin* 16.9 gm/dL (13.5-17.5); Immature Granulocytes Abs Auto 0.01 K/uL (0.00-0.30); Immature Granulocytes Pct Auto 0.1 %; Lymphocytes Absolute Auto 2.39 K/uL (0.90-2.90); Lymphocytes Percent Auto 25.3 % (20-44); Mean Corpuscular HGB Conc 34 gm/dL (32-36); Mean Corpuscular Hemoglobin 29 pg (26-34); Mean Corpuscular Volume 85 fL (80-100); Monocytes Percent Auto 9.7 % (0.0-11.0); Neutrophils Absolute Auto 5.67 K/uL (1.7-7.0); Platelet Count* 300 K/uL (140-440); Red Blood Count 5.79 m/uL (4.30-5.90); White Blood Count* 9.46 K/uL (4.50-11.00)
[2022-04-22 20:41] LABS: Slide Review Reflex No
--- NOTE | 2022-04-22 20:44 | CRLHL7_ITS ---
For Patients: As a result of the Cures Act, medical imaging exams and procedure reports are released immediately into your electronic medical record. You may view this report before your referring provider. If you have questions, please contact your health care provider. Indication: Evaluate for subdiaphragmatic air Technique: KUB Comparison: No comparison Findings/impression : Nonobstructive bowel gas pattern no definite free air seen. No definite free air seen however if the patient has increasing abdominal pain or if there is a high level clinical concern consider CT imaging. Dictated by Caroline Diaz MD @ 04/22/2022 10:00:57 PM (Electronically Signed)
[2022-04-22] MEDS: 0.9 % SODIUM CHLORIDE 1000 ml 1,000 ML 6000 ML IV (20:52)
[2022-04-22] MEDS: PANTOPRAZOLE SODIUM 40 MG INJ 80 MG IVP (20:52)
[2022-04-22] MEDS: TRANEXAMIC ACID 1,000 MG in 0.9 % SODIUM CHLORIDE 100 ml 100 ML 440 MG IVPB (20:53)
--- NOTE | 2022-04-22 21:32 | ED_ITS ---
HPI - GI Bleed General Chief complaint: GI Bleed Stated complaint: Bleeding after a Colonoscopy Time Seen by Provider: 04/22/22 20:15 History of Present Illness HPI Narrative: 41-year-old man presenting to the emergency department with complaint of GI bleed. This late morning had a colonoscopy where 2 biopsies were taken. Also scoped was his colostomy/stoma which was placed for complicated diverticulitis with partial colectomy. He is anticipating take-down soon. Returning home did have some mucousy stool and small blood clots. Then later this evening another mucousy stool with small blood clots. All passed rectally. Has had also over the last couple of hours now increasing discomfort in the left mid abdomen. No shortness of breath. No fever. Not lightheaded. Just thought he should be evaluated. Later conversation with surgeon who performed colonoscopies noted some pouchitis and discomfort with enema. Related Data Home Medications Medication Instructions Recorded Confirmed albuterol sulfate 90 mcg/actuation 2 inh inhalation Q4H PRN 10/04/21 03/27/22 aerosol inhaler (Ventolin HFA) magnesium oxide 400 mg (241.3 mg 400 mg PO DAILY 10/04/21 04/22/22 magnesium) tablet albuterol sulfate 2.5 mg/3 mL mg inhalation PRN 04/04/22 04/04/22 (0.083 %) solution for nebulization fluticasone 500 mcg-salmeterol 50 1 inhalation BID 04/04/22 04/04/22 mcg/dose blistr powdr for inhalation metaxalone 400 mg tablet 400 mg PO .Daily as needed PRN 04/04/22 04/04/22 Previous Rx's Medication Instructions Recorded needle (disp) 23 gauge 23 gauge x #100 ea 12/28/21 1 (Hypodermic [place]) testosterone cypionate 200 mg/mL 300 mg (1.5 mL) IM Q14D #10 mL 01/04/22 intramuscular oil filter needles 19 x 1 1/2 (BD #15 ea 01/16/22 Filter Needle-5 Micron) peg 3350-electrolytes 236 240 ml PO Q10M #4,000 mL 04/03/22 gram-22.74 gram-6.74 gram-5.86 gram solution (ShopItToMe) syringe (disposable) 1 mL (BD #10 ea 04/04/22 Luer-Tawanda Syringe) Allergies Allergy/AdvReac Type Severity Reaction Status Date / Time Seasonal Allergy Unknown Uncoded 04/04/22 07:57 Talc Allergy Unknown Uncoded 04/04/22 07:57 Review of Systems Status of ROS: Reports: 6 or more systems reviewed and unremarkable except as noted in History and below [facility] Medical History Abdominal pain Acute pharyngitis Anal fissure (02/03/13) Asthma Chronic pain (05/11/12) Diverticulitis of descending colon External hemorrhoids Hematochezia History of asthma Ingrown nail of great toe of right foot Surgical History History of bilateral inguinal hernia repair Status post cystourethroscopy with dilation of urethral stricture Status post hernia repair Family History Mother Breast cancer Social History Narrative: Former smoker- quit 2007 Highest level of school completed/degree received: decline to answer Smoking Status: Former smoker Do you use any of these nicotine containing products: None Second hand tobacco smoke exposure: No How often do you have a drink containing alcohol: 2-3 times a week Alcohol type: beer How many standard drinks containing alcohol do you have on a typical day: 1 or 2 How often do you have six or more drinks on one occasion: Never AUDIT-C Alcohol total score: 3 Non-prescribed substance use: denies use Caffeine: Yes (1 of each/day energy drink diet coke and preworkout) service: No Exam Narrative: Exam Narrative: Pleasant. Mildly anxious. Breathing easily. Eyes are little injected. Skin is warm and dry. Lungs are clear. Heart is in a regular rate and rhythm. Abdomen with normoactive bowel sounds is soft. Mild discomfort to palpation left mid abdomen. No peritoneal signs. The stoma site is with very mild irregular erythema more consistent with irritation from adhesive perhaps. Does not look cellulitic. Const: Vital Signs, click to edit/add: Vital Signs - 24 hr 04/22/22 19:56 04/22/22 22:16 Temperature 98.7 F Pulse Rate [Pulse Oximeter] 89 76 Respiratory Rate 16 16 Blood Pressure [Le ft Upper Arm] 150/91 H 123/81 Pulse Oximetry 98 95 Oxygen Delivery Me thod Room Air Room Air Documenting provider has reviewed patient's vital signs: yes Course Vital Signs Vital signs: Initial Vital Signs Temperature 98.7 F 04/22/22 19:56 Temperature Source Temporal Artery Scan 04/22/22 19:56 Pulse Rate 89 04/22/22 19:56 Pulse Rhythm 04/22/22 19:56 Respiratory Rate 16 04/22/22 19:56 Blood Pressure 150/91 H 04/22/22 19:56 Blood Pressure Mean 110 04/22/22 19:56 Pulse Oximetry 98 04/22/22 19:56 Oxygen Delivery Method 04/22/22 19:56 Vital Signs Temperature 98.7 F 04/22/22 19:56 Pulse Rate 89 04/22/22 19:56 Respiratory Rate 16 04/22/22 19:56 Blood Pressure 150/91 H 04/22/22 19:56 Pulse Oximetry 98 04/22/22 19:56 Oxygen Delivery Method 04/22/22 19:56 Temperature 98.7 F 04/22/22 19:56 Pulse Rate 76 04/22/22 22:16 Respiratory Rate 16 04/22/22 22:16 Blood Pressure 123/81 04/22/22 22:16 Pulse Oximetry 95 04/22/22 22:16 Oxygen Delivery Method 04/22/22 22:16 MDM - GI Bleed MDM Narrative Medical decision making narrative: I think it would be reasonable to check labs and flat and upright abdominal x- ray looking for free air. If continues to bleed would do serial hemoglobins. Dosed also with pantoprazole and TXA. Given a L of normal saline IV. Hemoglobin, normal white count and lack of continued bleeding is reassuring. I think continued close monitoring is in order. Discussed with surgeon. Medical Records Attestation: I reviewed the patient's medical records. Lab Data Attestation: I reviewed the patient's lab results. Labs: Lab Results 04/22/22 Range/Units 20:34 WBC 9.46 (4.50-11.00) K/uL RBC 5.79 (4.30-5.90) m/uL Hgb 16.9 (13.5-17.5) gm/dL Hct 49.4 (37.0-53.0) % MCV 85 (80-100) fL MCH 29 (26-34) pg MCHC 34 (32-36) gm/dL RDW Coeff of Balbir 13.0 (11.5-15.5) % Plt Count 300 (140-440) K/uL Neut % (Auto) 60.0 (42.0-72.0) % Lymph % (Auto) 25.3 (20-44) % [place] % (Auto) 9.7 (0.0-11.0) % Eos % (Auto) 4.5 (0.0-7.0) % Baso % (Auto) 0.4 (0.0-3.0) % Neut # (Auto) 5.67 (1.7-7.0) K/uL Lymph # (Auto) 2.39 (0.90-2.90) K/uL [place] # (Auto) 0.90 (0.00-0.90) K/UL Eos # (Auto) 0.43 (0.00-0.50) K/uL Baso # (Auto) 0.04 (0.00-0.30) K/uL Discharge Plan Discharge Clinical Impression: Post-op bleeding, Bright red rectal bleeding Patient Disposition: Home, Self-Care Condition: Stable Additional Instructions: Return for marked increase in bleeding, fever, lightheadedness, shortness of breath, uncontrolled pain, repeated vomiting. Stay well-hydrated. Prescriptions: No Action albuterol sulfate [Ventolin HFA] 90 mcg/actuation HFA aerosol inhaler 2 inh inhalation Q4H PRN magnesium oxide 400 mg (241.3 mg magnesium) tablet 400 mg PO DAILY Hold Instructions: Doctor's Order Label Comments: TAKE 1 TABLET BY MOUTH EVERY DAY metaxalone 400 mg tablet 400 mg PO .Daily as needed PRN fluticasone propion-salmeterol 500-50 mcg/dose blister with device 1 inhalation BID albuterol sulfate 2.5 mg /3 mL (0.083 %) solution for nebulization inhalation PRN (DME) BD Luer-Tawanda Syringe 1 mL syringe See Rx Instructions .ROUTE .MEDSUPPLY Qty: 10 12RF Rx Instructions: As directed (DME) needle (disp) 23 gauge [Hypodermic [place]] 23 gauge x 1 needle See Rx Instructions .ROUTE .MEDSUPPLY Qty: 100 12RF Rx Instructions: As directed testosterone cypionate 200 mg/mL oil 300 mg IM Q14D Qty: 10 1RF (DME) filter needles [BD Filter Needle-5 Micron] 19 x 1 1/2 needle See Rx Instructions .ROUTE .MEDSUPPLY Qty: 15 0RF Rx Instructions: use every 14 days with testosterone injections peg 3350-electrolytes [Golytely] 236-22.74-6.74 -5.86 gram recon soln 240 ml PO Q10M Qty: 4000 0RF Rx Instructions: until fecal effluent is clear Follow Up/Referrals: Jevon Brothers MD [Primary Care Provider] - Stand Alone Forms: MyHealth Info Instructions
[2022-04-22 22:16] VITALS: BP 123/81; PULSE 76; RESP 16; O2SAT 95
== END 2022-04-22 22:18 | disposition home or self-care (01) ==
PROVIDERS: Emergency Provider Family Medicine; PCP Family Medicine
DX: K91.840 Postprocedural hemorrhage of a digestive system organ or structure following a digestive system procedure (principal)
CPT/HCPCS: 36415; 74019; 85025; 96374; 96375; 99284; C9113; J7030

== ENCOUNTER 2022-04-30 06:02 | Inpatient (IN) | payer OTHER, SELFPAY ==
[2022-04-30] VITALS (23 sets, daily range): BP systolic 112–162; BP diastolic 76–102; PULSE 71–101; RESP 16–20; TEMP 36.7–37.2; O2SAT 94–99; BMI 33.7
[2022-04-30] MEDS: LACTATED RINGERS 1000 ML 1,000 ML 100 ML IV ×2 (06:20→11:36)
[2022-04-30] MEDS: SODIUM CHLORIDE 0.9 % (FLUSH) 10 ML SYRINGE IVF (06:47)
--- NOTE | 2022-04-30 07:53 | W.ANESCHARGE ---
Anesthesia Charges Start Date/Time Anesthesia Start Date: 04/30/22 Stop Date/Time Anesthesia Stop Date: 04/30/22
[2022-04-30] MEDS: ERTAPENEM 1 GM inj IVPB (08:15)
--- NOTE | 2022-04-30 08:17 | W.ANESCHARGE ---
Anesthesia Charges Start Date/Time Anesthesia Start Date: 04/30/22 Anesthesia Start Time: 07:52 Stop Date/Time Anesthesia Stop Date: 04/30/22 Anesthesia Stop Time: 13:47
--- NOTE | 2022-04-30 08:18 | W.PM.NB ---
Nerve Block Nerve Block Time Seen by Provider: 08:10 Date Seen: 04/30/22 Type of block requested by surgeon for post-operative analgesia: TAP Side: bilateral Time out performed: Yes Verification of patient name: Yes Verification of date of : Yes Site marking: site marked Name of person performing procedure: Antonino Continuous monitoring Was continuous monitoring of O2 sat, B/P, composition professor, recorded every 15 minutes?: Yes Procedure Checklist: sterile prep, needles and gloves Ultrasound guided. Images saved: Yes Medications given in 5ml increments after negative aspiration: Marcaine %: 0.25 mL: 30 Needle gauge: 20 and Exparel mL: 10 Patient tolerated procedure well: Yes Additional comments: Needle noted adjacent to nerve Block Charges Block Charge (with Pro Fee): TAP Bilateral Use of Ultrasound Machine for Block: Yes- US Guidance/pain block
[2022-04-30] MEDS: BUPIVACAINE 0.25% 30 ML INJECTION (08:49)
--- NOTE | 2022-04-30 12:38 | PM.GSPRC ---
Operative Note Date of procedure: 04/30/22 Pre-op diagnosis: 1. End colostomy 2. History of emergency exploratory laparotomy, left hemicolectomy for perforated diverticulitis Post-op diagnosis: Same Type of Procedure: 1. Laparoscopic colostomy takedown with extracorporeal hand-sewn anastomosis 2. Extensive laparoscopic lysis of adhesions Indications: Patient is a 41-year-old male who was originally seen for perforated diverticulitis last summer. Evidence at that time of evaluation of significant retroperitoneal contamination requiring an emergency surgery. He did have an end colostomy, which he has done well with, but now desires bowel continuity. Risks and benefits of operative intervention were discussed at length the patient. Risks included, but were not limited to: Bleeding, infection, risk of damage to surrounding structures, risk of anastomotic leak and possible need for additional procedures. We also reviewed any postop complications such as clot, MS, pneumonia, stroke or . Questions and concerns were addressed with patient agreeing to proceed. Procedure Description: After discussing the risks and benefits of the procedure, the patient signed informed consent.? The operative site was marked and the patient was brought to the operating room and placed on the operating table in supine position.? Care was taken to pad the patient's pressure points.?? The patient was then intubated by anesthesia.??The patient was then repositioned in a modified lithotomy position, making sure to pad all pressure points. A Lua catheter was placed under sterile conditions. Anesthesia performed an abdominal tap block. I closed the end colostomy with a 2 0 Vicryl stitch and placed in outer dressing of 4 x 4 and Tegaderm. The operative site, including the closed colostomy dressing was then prepped and draped in the usual sterile fashion.? A time-out was then performed. I made an incision at his previous scar just inferior to the periumbilical incision, to her son into the abdomen. The subcutaneous fat was divided down to fascia and scar. Entrance into the abdomen was made difficult secondary to obliterated spaces in the presence of scar tissue. Using blunt and sharp dissection we were able to enter into the abdomen. A 12 mm balloon port was placed in the abdomen was insufflated. The abdomen was then briefly surveyed, with no evidence of any underlying injury. There was surrounding omental adhesions around the port. The left lower quadrant stoma was seen. An additional 5 mm port was placed in the left lower quadrant and Two ports were placed on the right side of the abdomen, all of these ports were placed under direct visualization. The [place] port was then examined, again omental adhesions were seen but no intra-abdominal organ injury identified. There was a significant amount of anterior abdominal wall and lateral left abdominal wall adhesions. These were taken down sharply and with Harmonic device when appropriate. 2 hours of the procedure were performed just for lysis of the adhesions. Dr. Holland did assist with this portion of procedure in retraction and visualization. With the omentum free from the abdominal wall the Rich's pouch was able to be identified. The pouch was adherent to the lateral aspect of the wall via a distal Prolene stitch. This was taken down sharply with laparoscopic scissors. During this portion of the procedure I was able to identify the left ureter and ensured that remained outside my operative field. The lateral attachments on the Rich's pouch were freed with the Harmonic device and careful dissection. I continued with the dissection into the pelvis on the left side, dissecting away the peritoneum. Care was taken not to injure underlying colon or lateral wall structures. There was significant length to the Rich's pouch, so the decision was made to proceed with a hand-sewn end-to-end anastomosis. Prior to this we turned our attention to the end colostomy. Laparoscopically surrounding omental adhesions and scar tissue was carefully taken down with laparoscopic scissors. Once all adhesions were removed we elected to extracorporeally. The proximal end of the Rich's pouch was grasped with a laparoscopic grasper, to assist with identification. The abdomen was then desufflated all laparoscopic instruments removed ports covered with towels. We turned our attention to the covered and colostomy. The outer dressing was removed and thrown off the operative field. I made a circumferential skin incision around the existing colostomy at the mucocutaneous junction. The subcutaneous fat was dissected with cautery circumferentially. The dissection was carried down to the anterior fascia. The colostomy and colonic mesentery was mobilized off the fascia carefully with cautery. Hemostasis was achieved with Vicryl ties and cautery when appropriate. This portion of the procedure Dr. Holland assisted with retraction. Once the colon was completely free from the colostomy opening was eviscerated and very mobile. The colostomy fascia was inspected and appeared too small in order to create our anastomosis and bring out the Rich's limb. The skin excision was extended laterally. The anterior fascia was divided lateral and medial. A small amount of rectus muscle was divided with cautery. The posterior fascia was also extended lateral and medial. A medium Rosalio wound retractor was placed into the ostomy incision. The end of the Rich's limb was identified on the end of the laparoscopic grasper. Babcocks were used to gently grabbed the distal bowel. The laparoscopic grasper was then removed and the distal end of the bowel brought into the external operative field. Both colonic ends were examined and appeared healthy and well vascularized. Care was taken not to twist either colonic mesentery. The staple line of the Rich's pouch was clamped with a large Paula clamp and excised with a scalpel. The colonic lumen was then grasped with [place] clamps. Hemostasis was achieved with Vicryl ties and cautery. Similarly, we applied a Paula clamp on the proximal end of colon. The previous and ostomy portion was divided with a scalpel just below the [place]. The open ends of the transverse colon was grasped with [place] clamps. Hemostasis was achieved with cautery and Vicryl ties. On inspection the transverse lumen was larger in size when compared to the descending limb. The colonic ends were then lined up. A 2 layered hand-sewn anastomosis was created by 1st suturing the back wall of the anastomosis with 3-0 silk Lembert sutures. The mucosa was then closed with 2 running 2 0 PDS sutures. The from all of the anastomosis was then oversewn with 3-0 silk Lembert sutures. Care was taken to not stricture the anastomosis which was palpated and appeared to be patent. The mesenteric defect was not closed. No bleeding was noted. The anastomosis was then carefully placed into the abdomen. The Rosalio wound retractor was removed, as well as all dirty instruments towels and we removed our outer gloves. The peritoneum and posterior fascia was closed with a running 3-0 Vicryl stitch. The anterior fascia was closed with 2 running 1 PDS sutures. The subcutaneous tissue of the stoma site was brought together with interrupted 3 0 Vicryl. The stoma was partially cinched with a 2-0 pursestring suture. The lateral incision on the stoma that was made was closed with running 4-0 Monocryl stitch. The abdomen was then insufflated with CO2. No significant bleeding was noted in the field. The anastomosis and colonic mesentery was carefully examined in the mesentery did not appear to be twisted. There was no tension noted on the anastomosis. The laparoscopic ports were then removed under direct visualization. The 12 mm umbilical port fascial incision was closed with running 1 PDS suture. All port sites were closed with running 4-0 Monocryl. ? Sterile dressings were then applied. ? The patient was then woken and transported to the recovery area in stable condition. ? The patient tolerated the procedure well. Findings: Hand-sewn end-to-end anastomosis created through previous colostomy incision. Extensive lysis of adhesions. Surgeon: Hailee Robretson MD Co-Surgeon: Yovana Holland Estimated blood loss (mL): 75 Additional Specimen Information: Distal end of Rich's pouch, distal end ostomy segment. Condition: stable Disposition: floor
[2022-04-30] MEDS: fentaNYL 100 MCG/2 ML inj 50 MCG IVP ×3 (13:55→14:13)
--- NOTE | 2022-04-30 14:08 | W.ANESCHARGE ---
Anesthesia Charges Start Date/Time Anesthesia Start Date: 04/30/22 Anesthesia Start Time: 07:52 Stop Date/Time Anesthesia Stop Date: 04/30/22 Anesthesia Stop Time: 13:47
--- NOTE | 2022-04-30 14:08 | PM.GSPRC ---
Operative Note Date of procedure: 04/30/22 Pre-op diagnosis: 1. End colostomy and desire of bowel continuity. 2. History of left hemicolectomy for perforated diverticulitis. Post-op diagnosis: Same Type of Procedure: 1. Laparoscopic colostomy takedown with primary hand-sewn anastomosis. 2. Laparoscopic lysis of adhesions. Indications: 41-year-old male underwent left hemicolectomy and end colostomy for perforated diverticulitis with retroperitoneal air last summer. Patient was doing well with his colostomy but desired to bowel continuity. He was seen in clinic by my partner Dr. Robertson. Colostomy takedown was recommended. Please see her note for more details. Procedure Description: After discussing the risks and benefits of the procedure, the patient signed informed consent.? The operative site was marked and the patient was brought to the operating room. Patient was intubated by anesthesia. TAP blocks were administered by Anesthesia. The patient was placed in the modified lithotomy position with all pressure points padded. His colostomy appliance was removed, and colostomy opening was oversewn. This was then prepped with Betadine, covered with gauze and Tegaderm. The operative site was then prepped and draped in the usual sterile fashion.? A time-out was then performed. We elected to enter the abdomen using Sandor technique in the inferior periumbilical incision. Skin incision was made with a scalpel. Subcutaneous fat was divided down to the fascia and scar. Entrance into the abdomen in this location was difficult because of scar from his exploratory laparotomy. When entrance to the abdomen was obtained, a 12 mm Sandor port was inserted into the abdomen, and abdomen was insufflated with carbon dioxide. The abdomen was examined and colostomy was identified. There were omental adhesions to the anterior abdominal wall near the colostomy and in the lower abdomen. We then placed additional 5 mm ports in the right upper quadrant, right lower quadrant, and left lower quadrant under direct visualization. The Av[place] port entrance site was examined, omental adhesions were near the port, but no intra-abdominal organ injury was noted from entrance to the abdomen. We first proceeded with lysis of adhesions. Dr. Robertson with performing lysis of adhesions when I assisted with retraction and visualization. The lysis of adhesions was extensive and took more than 2 hours. When omentum was taken down off the abdominal wall, we identified our Rich's pouch. The Rich's pouch was long and was measured to be at least 40 cm on preoperative colonoscopy. The Rich's pouch was then mobilized off the lateral abdominal wall using Harmonic scalpel. This dissection was carried towards the pelvis. A previously placed Prolene stitch was identified in the left lateral abdominal wall. The Rich's pouch in this location was mobilized off the abdominal wall with Metzenbaum scissors. During this part of the dissection we were able to identify the left ureter, and the ureter was out of the harm's way. The length of the Rich's pouch was enough to reach to the colostomy skin opening. During this part of surgery I assisted with mobilization, retraction, and visualization of the Rich's pouch. We then proceeded with mobilizing the colostomy of the lateral abdominal wall. Wispy adhesions of the colostomy mesentery were noted to the small bowel. Those adhesions were taken down with Metzenbaum scissors. The splenic flexure was previously mobilized during his initial surgery. At this point we elected to proceed extracorporeally. The proximal end of the Rich's pouch was then grasped with laparoscopic grasper. The abdomen was deflated. All laparoscopic instruments were removed and ports were covered with towels. The Tegaderm overlying the colostomy was removed. The circumferential skin incision was made around the existing colostomy at the mucocutaneous junction. This was done with cautery. Subcutaneous fat was dissected with cautery circumferentially. This dissection was carried down to the anterior fascia. The colostomy and colon mesentery was mobilized off the fascia with cautery. Hemostasis was achieved with cautery and Vicryl ties. During this part of the procedure I assisted with retraction and visualization of the colostomy. When the colon was free from the colostomy opening, it was eviscerated and was very mobile. The colostomy fascial incision was fairly small to accommodate creation of anastomosis. We elected to extend the fascial opening medially and laterally. The rectus muscles were also divided with cautery. The skin incision was enlarged laterally with a scalpel. With palpation of the midline abdominal wall, were able to feel fascial hernia defects near the umbilicus. The Rosalio retractor was placed through the colostomy opening. The 12 mm port was removed. The proximal end of the Rich's pouch was then eviscerated through this colostomy fascial opening. Both ends of the colon were examined and appeared healthy. The colonic mesentery was examined, and it was not twisted. We then proceeded with an end-to-end hand-sewn anastomosis. The staple line of the Rich's pouch was clamped with a Paula clamp and excised with a scalpel. The colon lumen was grasped with [place] clamps. Hemostasis was achieved with Vicryl ties and cautery. Similarly, the colostomy end was clamped with a Paula clamp and divided with scalpel. The open end of the transverse colon was then grasped with [place] clamps. Hemostasis was achieved with cautery and Vicryl ties. The transverse colon lumen and was slightly larger than the lumen of the Rich's pouch. The colonic open ends were then lined up. A 2 layered hand-sewn anastomosis was then created by first suturing the back wall of the anastomosis with 3-0 silk Lambert sutures. The mucosa was then closed with 2 running 2-0 Prolene sutures. And the front wall of the anastomosis was then oversewn with 3-0 silk Lembert sutures. The colonic mesenteric defect was not closed. The anastomosis was palpated and appeared to be patent. No bleeding was noted. The anastomosis was then placed into the abdomen. During this part of the procedure I assisted with visualization and retraction as well as creation of anastomosis. The Rosalio retractor and all dirty instruments and towels were removed from the surgical field. Surgeons and assistants changed gloves. The colostomy incision peritoneum was closed with Vicryl sutures. The fascia was then closed with 2 running PDS sutures. The abdomen was insufflated again with carbon dioxide cleared no significant bleeding was noted in the surgical field. The anastomosis and colonic mesentery was examined and the mesentery did not appear to be twisted. No tension was noted on the anastomosis. At this time Dr. Robertson proceeded with abdominal closure, and I left the case. ? Findings: Long Rich's pouch was identified. A hand-sewn end-to-end anastomosis was created through the colostomy incision. Anesthesia: GETA Surgeon: Hailee Robertson MD Co-Surgeon: Yovana Holland MD Estimated blood loss (mL): 75 Condition: stable Disposition: PACU
[2022-04-30] MEDS: LACTATED RINGERS 1000 ML 1,000 ML 50 ML IV (14:19)
--- NOTE | 2022-04-30 14:23 | SUR.PHASEI ---
having referred pain from lap gases, right shoulder
[2022-04-30] MEDS: HYDROmorphone 0.5 mg/0.5 ml inj IVP ×5 (14:29→22:44)
[2022-04-30] MEDS: LACTATED RINGERS 1000 ML 1,000 ML 125 ML IV ×2 (14:53→21:16)
[2022-04-30] MEDS: KETOROLAC 15 MG/ML inj IVP ×2 (15:21→22:43)
--- NOTE | 2022-04-30 18:27 | PC.NURSE ---
Pt is alert and oriented, arrived from PACU at 1445, pt c/o 10/10 pain to R shoulder and abd. Ice packs in place. PRN Toradol and IV Dilaudid admin x2 this shift, w/ improvement in pain, bringing pain from 10 to a 4-5. Pt states a 4 is manageable. Pt belching, no flatus yet, belching helps relieve pain as well per pt. Bowel sounds hypoactive but present. Dressing to abd CDI, lap sites CDI, glue intact. Pt denies nausea, tolerating ice chips and sips of water. LR infusing per order. Pt up to dangle at side of bed. Pt's present until this evening. Pt has TEDS, SCDs in place. Lua patent and draining, hopefully to remove tomorrow per surgeon. VSS, sys up to 140s sys, but stable, on RA. Pt has call light within reach and using appropriately.
[2022-05-01] MEDS: HYDROmorphone 0.5 mg/0.5 ml inj IVP ×7 (02:26→21:12)
[2022-05-01 04:00] VITALS: BP 117/72; PULSE 92; RESP 20; TEMP 37.2; O2SAT 95
[2022-05-01] MEDS: LACTATED RINGERS 1000 ML 1,000 ML 125 ML IV ×3 (05:05→19:48)
[2022-05-01] MEDS: KETOROLAC 15 MG/ML inj IVP ×3 (05:05→18:15)
--- NOTE | 2022-05-01 05:39 | PC.NURSE ---
Shift note: Surgical dressing is intact with medium amount of bloody drainage. RN changed dressing in AM, wet gauze to the wound with 4X4 padding and covered with Medipore tape. Pt rates pain 4-7/10, RN treated per eMAR with relief and pt was able to rest. Lua cath removed in AM per pt request. He ambulates in the room and hallway this morning. Tolerating sips and chips with no c/o nausea, afebrile, bowel sounds hypoactive, hasn't pass gas yet.
[2022-05-01 08:50] VITALS: BP 137/79; RESP 20; TEMP 36.8; O2SAT 99
[2022-05-01] MEDS: SODIUM CHLORIDE 0.9 % (FLUSH) 10 ML SYRINGE IVF ×2 (09:04→18:56)
--- NOTE | 2022-05-01 09:57 | PM.GSPN ---
Subjective Subjective Date Seen: 05/01/22 Interval history: Patient is doing okay this morning. Rates pain a 4/10. His left shoulder pain is still present, but not getting worse and does think it is may be improving. He does have some abdominal pain, but this is being controlled with medications. His Lua was removed this morning and he has been able to get up and walk the halls. Denies passage of gas, but is feeling hungry this morning. No nausea. Exam Narrative: Exam Narrative: General: Alert and oriented, no acute distress. Nontoxic in appearance. Lying comfortably in bed. Abdomen: Soft, nondistended. Appropriately tender over the incision sites and left lower quadrant. No guarding or rebound. Incisions clean/dry/intact. A dressing is in place over the left lower quadrant stoma site, this was recently changed by nursing. Const: Vital Signs, click to edit/add: Vital Signs - 24 hr 04/30/22 13:47 04/30/22 13:55 04/30/22 14:00 Temperature 98.8 F Pulse Rate 91 88 88 Pulse Rate [Right Pulse Oximeter] Respiratory Rate 16 16 16 Blood Pressure 161/102 H 151/96 H 151/96 H Blood Pressure [Le ft Arm] Pulse Oximetry 98 98 97 Oxygen Delivery Me thod Room Air Room Air Room Air 04/30/22 14:05 04/30/22 14:10 04/30/22 14:16 Temperature 98.8 F 98.0 F Pulse Rate 89 99 93 Pulse Rate [Right Pulse Oximeter] Respiratory Rate 20 20 20 Blood Pressure 162/100 H 157/93 H 162/96 H Blood Pressure [Le ft Arm] Pulse Oximetry 95 94 98 Oxygen Delivery Mt thod Room Air Room Air Room Air 04/30/22 14:20 04/30/22 14:25 04/30/22 14:35 Temperature Pulse Rate 88 81 85 Pulse Rate [Right Pulse Oximeter] Respiratory Rate 20 20 20 Blood Pressure 151/100 H 160/94 H 162/97 H Blood Pressure [Le ft Arm] Pulse Oximetry 98 97 95 Oxygen Delivery Mt thod Room Air Room Air Room Air 04/30/22 14:31 04/30/22 15:04 04/30/22 14:45 Temperature 99.0 F 99.0 F Pulse Rate 85 93 Pulse Rate [Right Pulse Oximeter] 93 Respiratory Rate 20 20 16 Blood Pressure 157/94 H Blood Pressure [Le ft Arm] 157/91 H 157/91 H Pulse Oximetry 95 96 Oxygen Delivery Me thod Room Air Room Air Room Air 04/30/22 15:00 04/30/22 15:15 04/30/22 15:30 Temperature 98.4 F 98.8 F 98.4 F Pulse Rate Pulse Rate [Right Pulse Oximeter] 88 84 90 Respiratory Rate 20 20 18 Blood Pressure Blood Pressure [Le ft Arm] 142/92 H 144/89 H 138/79 Pulse Oximetry 95 95 97 Oxygen Delivery Mt thod Room Air Room Air Room Air 04/30/22 15:45 04/30/22 16:15 04/30/22 16:45 Temperature 98.8 F 98.6 F 98.2 F Pulse Rate Pulse Rate [Right Pulse Oximeter] 76 85 82 Respiratory Rate 16 16 16 Blood Pressure Blood Pressure [Le ft Arm] 141/86 H 140/84 H 135/82 Pulse Oximetry 98 98 97 Oxygen Delivery Mt thod Room Air Room Air Room Air 04/30/22 18:00 04/30/22 19:00 04/30/22 21:00 Temperature 99.0 F 98.9 F 98.9 F Pulse Rate Pulse Rate [Right Pulse Oximeter] 85 92 101 H Respiratory Rate 16 16 20 Blood Pressure Blood Pressure [Le ft Arm] 140/77 H 112/76 125/76 Pulse Oximetry 98 98 98 Oxygen Delivery Mt thod Room Air Room Air Room Air 04/30/22 23:00 04/30/22 23:00 05/01/22 04:00 Temperature 98.9 F 98.9 F Pulse Rate Pulse Rate [Right Pulse Oximeter] 93 101 H 92 Respiratory Rate 20 20 Blood Pressure Blood Pressure [Le ft Arm] 125/76 117/72 Pulse Oximetry 98 95 Oxygen Delivery Mt thod Room Air Room Air Progress Note: A&P Assessment and plan (1) S/P colostomy takedown: Status: Acute Assessment and Plan: Patient is postop day 1 laparoscopic assisted colostomy takedown with hand sewn, colonic, end-to-end anastomosis. His Lua was removed this morning and he is voiding independently. Patient is having expected postoperative pain, but this is currently well controlled and he is ambulating without difficulty. No fevers overnight. Has not yet passed gas but is feeling hungry this morning. No acute concerns. -NPO, sips and ice chips until passing gas. Patient is requesting sips of an energy drink, okay to have but recommend noncarbonated -IV fluids at 125 mL until adequate p.o. intake -encourage ambulation, SCDs for DVT prophylaxis. Lovenox to start this evening versus tomorrow pending CBC -IV and p.o. pain meds as needed
[2022-05-01 11:15] VITALS: BP 134/91; PULSE 94; RESP 20; TEMP 36.7; O2SAT 95
[2022-05-01 11:39] LABS: Basophils Percent Auto 0.2 % (0.0-3.0); Eosinophils Percent Auto 0.2 % (0.0-7.0); Hematocrit 44.9 % (37.0-53.0); Hemoglobin* 15.4 gm/dL (13.5-17.5); Immature Granulocytes Pct Auto 0.2 %; Lymphocytes Percent Auto 11.6 % (20-44); Mean Corpuscular HGB Conc 34 gm/dL (32-36); Mean Corpuscular Hemoglobin 29 pg (26-34); Mean Corpuscular Volume 86 fL (80-100); Monocytes Percent Auto 8.5 % (0.0-11.0); Neutrophils Percent Auto 79.3 % (42.0-72.0); Platelet Count* 311 K/uL (140-440); RDW Coefficient of Variation % 13.6 % (11.5-15.5); Red Blood Count 5.23 m/uL (4.30-5.90); White Blood Count* 13.14 K/uL (4.50-11.00)
[2022-05-01 11:41] LABS: Slide Review Reflex No
[2022-05-01] MEDS: ONDANSETRON 2 MG/ML inj IVP (14:49)
[2022-05-01 15:00] VITALS: BP 138/88; RESP 20; TEMP 36.8; O2SAT 98
--- NOTE | 2022-05-01 19:25 | PC.NURSE ---
Pt rating pain 4-8/10 throughout the day. Absent to hypoactive bowels. Denies passing gas. See MAR for pain management with minimal relief. Ice pack to abdomen and right shoulder pain intermittently. Up in huerta in room occasionally. Up to void without complication.
[2022-05-01 19:30] VITALS: BP 130/76; PULSE 89; RESP 18; TEMP 37.2; O2SAT 95
[2022-05-01] MEDS: ENOXAPARIN 40 MG/0.4 ML INJ SUBCUT (21:07)
[2022-05-01] MEDS: SIMETHICONE 80 MG TAB.CHEW 160 MG PO (21:07)
[2022-05-01 23:00] VITALS: BP 149/84; PULSE 84; RESP 18; TEMP 38; O2SAT 99
--- NOTE | 2022-05-01 23:08 | PC.NURSE ---
Shift [id number]- Patient rates pain up to a 6, with relief after receiving PRN medications and ice. He is up independently. He states he passed a small amount of gas. Bowel sounds are hypoactive.
[2022-05-02] MEDS: KETOROLAC 15 MG/ML inj IVP ×4 (00:05→20:14)
[2022-05-02] MEDS: SODIUM CHLORIDE 0.9 % (FLUSH) 10 ML SYRINGE IVF ×6 (00:06→22:14)
[2022-05-02 03:45] VITALS: BP 124/90; PULSE 87; RESP 20; TEMP 37.2; O2SAT 97
[2022-05-02] MEDS: HYDROmorphone 0.5 mg/0.5 ml inj IVP ×5 (03:45→22:13)
[2022-05-02] MEDS: LACTATED RINGERS 1000 ML 1,000 ML 125 ML IV (03:46)
--- NOTE | 2022-05-02 05:32 | PC.NURSE ---
[id number] Pt slept during night until 0400, at which time pt stated he was done sleeping for the night. PRN toradol and dilaudid administered for pain, rating 5-8/10, pain primarily at take down site, Pt did not mention shoulder pain to nurse during night. denies/unsure or passing gas while sleeping. bowel sounds absent to Extremely hypoactive. encouraged patient to remain NPO with sip/chips sparingly. Voiding without difficutly. denies N/V. encouraged patient to walk halls, which patient did x1, he walked 2 laps around entire unit. High temp of 100.4 at 2300 vitals, declined oral tylenol, recheck at 0345 was 99.0, temp taken orally.
[2022-05-02 07:40] VITALS: BP 127/82; PULSE 81; RESP 16; TEMP 36.7; O2SAT 97
--- NOTE | 2022-05-02 10:32 | P.GSPN_ITS ---
Subjective Subjective Date Seen: 05/02/22 Interval history: Patient is doing well this morning. He did have a low-grade fever overnight. He states that he felt his fever broke this morning. He has been up walking the halls. He has a history of asthma so has been working on his IS. Abdominal pain is still present but improving. He did pass gas this morning and is feeling very hungry. Denies any nausea. Exam Narrative: Exam Narrative: General: Alert and oriented, no acute distress. Abdomen: Soft, nontender and nondistended. Left quadrant stoma site dressing c hanged. Small wound with no concern for infection. Other incision sites clean/dry/intact. Const: Vital Signs, click to edit/add: Vital Signs - 24 hr 05/01/22 11:15 05/01/22 15:00 05/01/22 19:30 Temperature 98.1 F 98.2 F 99 F Pulse Rate [Right Pulse Oximeter] 94 89 Respiratory Rate 20 20 18 Blood Pressure [Le ft Arm] 134/91 H 138/88 130/76 Pulse Oximetry 95 98 95 Oxygen Delivery Me thod Room Air Room Air Room Air 05/01/22 23:00 05/02/22 03:45 05/02/22 07:40 Temperature 100.4 F H 99.0 F 98.1 F Pulse Rate [Right Pulse Oximeter] 84 87 81 Respiratory Rate 18 20 16 Blood Pressure [Le ft Arm] 149/84 H 124/90 H 127/82 Pulse Oximetry 99 97 97 Oxygen Delivery Me thod Room Air Room Air Room Air Progress Note: A&P Assessment and plan (1) S/P colostomy takedown: Status: Acute Assessment and Plan: Patient is postop day 2 laparoscopic assisted colostomy takedown with hand sewn, colonic, end-to-end anastomosis. Low-grade fever overnight (100.4) but afebrile this morning. If he does have another fever would workup with CBC, UA and chest x-ray, for now would continue to trend fever curve. Abdomen benign this morning on exam with passing of gas. Will start a clear liquid diet. -clear liquid diet -TKO IV fluids -encourage ambulation, SCDs and Lovenox for DVT prophylaxis. -IV and p.o. pain meds as needed -trend fever curve, please contact provider for any concerns.
[2022-05-02 11:00] VITALS: BP 127/82; PULSE 81; RESP 18; TEMP 36.8; O2SAT 97
--- NOTE | 2022-05-02 13:49 | PC.NURSE ---
Pt has been appropriate and cooperative during shift. Pt is independent and walked hallways during shift. Pt has had pain ranging from 5-7. See EMAR for intervention. ?Pt vital signs stable. Pt has transitioned to a clear liquid diet. Pt tolerating well no nausea or vomiting. Pt?s dressing is dry and intact surgeon changed around 1020 am. Pt was saline locked at 1230pm.
[2022-05-02 15:36] VITALS: BP 137/97; PULSE 86; RESP 18; TEMP 36.9; O2SAT 98
[2022-05-02 19:00] VITALS: BP 139/91; PULSE 90; RESP 20; TEMP 37.5; O2SAT 96
[2022-05-02] MEDS: ENOXAPARIN 40 MG/0.4 ML INJ SUBCUT (20:13)
[2022-05-02 23:00] VITALS: BP 141/85; PULSE 82; RESP 20; TEMP 37.1; O2SAT 96
[2022-05-03] MEDS: KETOROLAC 15 MG/ML inj IVP ×3 (02:06→15:06)
[2022-05-03] MEDS: SODIUM CHLORIDE 0.9 % (FLUSH) 10 ML SYRINGE IVF ×5 (02:07→20:52)
[2022-05-03 02:20] VITALS: BP 144/89; PULSE 89; RESP 18; TEMP 37; O2SAT 96
--- NOTE | 2022-05-03 05:40 | PC.NURSE ---
[id number] Pt slept well during night, prn toradol q6h given as well as dilaudid x1. tolerating clears, denies N/V, no BM this shift but does acknowledge passing some gas and feeling his stomach and bowels move. bowel sounds are hypoactive x4, abdomen tender. ambulating halls. afebrile during night.
[2022-05-03] MEDS: HYDROmorphone 0.5 mg/0.5 ml inj IVP ×2 (06:05→08:26)
[2022-05-03 08:36] VITALS: BP 143/82; PULSE 87; RESP 18; TEMP 36.9; O2SAT 96
--- NOTE | 2022-05-03 09:44 | P.GSPN_ITS ---
Subjective Subjective Date Seen: 05/03/22 Interval history: Patient is doing well. He continues to have gas pains that are radiating to his left shoulder. He is walking a lot. He denies any nausea or vomiting. He tolerated clears yesterday. Patient is passing gas. Exam Narrative: Exam Narrative: Abdomen is soft, not distended, minimally tender to palpation in e pigastrium/left upper quadrant, no peritoneal signs. The left mid abdominal colostomy incision covered with gauze. The open area was probed and the Q-tip extended for approximately 1 cm deep into the colostomy incision. There is no surrounding erythema. Const: Vital Signs, click to edit/add: Vital Signs - 24 hr 05/02/22 11:00 05/02/22 15:36 05/02/22 19:00 Temperature 98.2 F 98.5 F 99.5 F Pulse Rate [Right Pulse Oximeter] 81 86 90 Respiratory Rate 18 18 20 Blood Pressure [Le ft Arm] 127/82 137/97 H 139/91 H Pulse Oximetry 97 98 96 Oxygen Delivery Me thod Room Air Room Air Room Air 05/02/22 23:00 05/03/22 02:20 Temperature 98.7 F 98.6 F Pulse Rate [Right Pulse Oximeter] 82 89 Respiratory Rate 20 18 Blood Pressure [Le ft Arm] 141/85 H 144/89 H Pulse Oximetry 96 96 Oxygen Delivery Me thod Room Air Room Air Progress Note: A&P Assessment and plan (1) S/P colostomy takedown: Status: Acute Plan 41-year-old male s/p colostomy takedown POD 3. Will advance patient's diet to full liquid diet and transition him to p.o. pain medication. The left colostomy incision will be packed with wet to dries. Patient's could do those dressing changes daily. Possibly discharge home tomorrow.
[2022-05-03 10:27] LABS: Chloride* 100 mmol/L (96-114); Potassium* 4.1 mmol/L (3.6-5.1); Sodium* 134 mmol/L (135-149)
[2022-05-03 10:30] LABS: Blood Urea Nitrogen* 7 mg/dL (5-24); Calcium* 9.2 mg/dL (8.4-10.6); Carbon Dioxide* 30 mmol/L (20-32); Creatinine* 0.8 mg/dL (0.5-1.5); Est. Creatinine Clearance* 113.61; Estimated Glomerular Filt Rate 114 ml/min; Glucose* 108 mg/dL (60-115)
[2022-05-03] MEDS: OXYCODONE 5 MG TABLET PO ×3 (11:41→19:37)
[2022-05-03 13:34] VITALS: BP 138/88; PULSE 79; RESP 18; TEMP 36.8; O2SAT 96
[2022-05-03] MEDS: ACETAMINOPHEN 325 MG TABLET 650 MG PO ×2 (13:34→18:49)
[2022-05-03 15:00] VITALS: BP 126/88; PULSE 73; RESP 18; TEMP 37; O2SAT 98
--- NOTE | 2022-05-03 15:19 | NUTR.NU ---
Nutrition screen complete. Patient day 4 status post colostomy take down. He is tolerating a full liquid diet. As diet is advanced reviewed taking it slow with low fiber, easy to chew and bland foods. Patient is familiar with a low fiber diet from previous diet education. He denies having any questions. RDN to continue to monitor and follow up as needed.
[2022-05-03 19:00] VITALS: BP 134/92; PULSE 83; RESP 18; TEMP 36.6; O2SAT 98
--- NOTE | 2022-05-03 19:05 | PC.NURSE ---
Nursing Care Hours: [id number] Pt this shift alert and oriented, calm and cooperative with cares. C/o pain bilat abdomen 3-5/10 and increases to 8/10 with cramping. Treated per eMAR and Tx effective. Independent in room, seen walking the halls. Advanced to regular diet for dinner, tolerating well. Small amount of drainage to Mepilex over old stoma site. Left in place. VSS, afebrile. Passing gas and had XS BM with scant bright red blood.
[2022-05-03] MEDS: ENOXAPARIN 40 MG/0.4 ML INJ SUBCUT (20:51)
[2022-05-03 23:00] VITALS: BP 121/72; PULSE 79; PULSE 83; RESP 18; TEMP 36.6; O2SAT 98
[2022-05-04] MEDS: OXYCODONE 5 MG TABLET PO ×3 (00:36→09:54)
[2022-05-04] MEDS: KETOROLAC 15 MG/ML inj IVP ×2 (02:41→08:48)
[2022-05-04 03:00] VITALS: BP 123/95; PULSE 72; RESP 18; TEMP 36.8; O2SAT 97
--- NOTE | 2022-05-04 06:29 | PC.NURSE ---
Shift note: Pt's condition is stable, admitted to have had 2 small watery stool yesterday. Pt has been complaining of persistent pain between 5 and 8 of which he has received oxycodone 3x and ketorolac 1x. Dressing appeared soacked at 2100 and was changed. Scheduled dressing change done this morning at 0600.
[2022-05-04 08:08] VITALS: BP 139/106; PULSE 74; RESP 18; TEMP 36.4; O2SAT 97
[2022-05-04] MEDS: SODIUM CHLORIDE 0.9 % (FLUSH) 10 ML SYRINGE IVF (08:48)
--- NOTE | 2022-05-04 09:26 | P.DS_ITS ---
DS: Providers Provider Date Seen: 05/04/22 Date of admission: 04/30/22 06:02 Primary care physician: Jevon Brothers MD Admitting Clinician: Hailee Robertson MD Attending Physician on discharge: Hailee Robertson MD DS: Diagnosis Discharge Diagnosis (1) S/P colostomy takedown: Status: Acute DS: Summary Hospital Course Hospital Course: 41-year-old male was admitted to the hospital after laparoscopic colostomy takedown. Patient did well postoperatively. Patient continued to have pain at his left colostomy incision but the pain was controlled with ice and oral pain medication. His colostomy incision was left partially open and was packed with wet to dry dressing changes. He was tolerating regular diet and passing gas. Time Spent with Patient Time attestation: Total time spent providing and/or coordinating discharge services: Exam Const: Vital Signs, click to edit/add: Vital Signs - 24 hr 05/03/22 13:34 05/03/22 15:00 05/03/22 15:00 Temperature 98.2 F 98.6 F Pulse Rate [Right Pulse Oximeter] 79 73 73 Respiratory Rate 18 18 18 Blood Pressure [Le ft Arm] 138/88 126/88 Pulse Oximetry 96 98 Oxygen Delivery Me thod Room Air Room Air 05/03/22 19:00 05/03/22 23:00 05/03/22 23:00 Temperature 97.8 F 97.8 F Pulse Rate [Right Pulse Oximeter] 83 83 79 Respiratory Rate 18 18 18 Blood Pressure [Le ft Arm] 134/92 H 121/72 Pulse Oximetry 98 98 Oxygen Delivery Me thod Room Air Room Air 05/04/22 03:00 05/04/22 08:08 Temperature 98.2 F 97.6 F Pulse Rate [Right Pulse Oximeter] 72 74 Respiratory Rate 18 18 Blood Pressure [Le ft Arm] 123/95 H 139/106 H Pulse Oximetry 97 97 Oxygen Delivery Me thod Room Air Room Air DS: Data Data Completed and Pending Completed studies during hospitalization: Procedures Bypass Transverse Colon to Cutaneous, Open Approach (10/05/21) Resection of Left Large Intestine, Open Approach (10/05/21) Labs on day of discharge: Labs from last 24 hours 05/03/22 10:05 Sodium 134 L Potassium 4.1 Chloride 100 Carbon Dioxide 30 BUN 7 Creatinine 0.8 Estimated Creat Clear 113.61 Estimated GFR 114 Glucose 108 Calcium 9.2 Discharge Plan Discharge Disposition: Home, Self-Care Date of Admission: 04/30/22 06:02 Attending Provider on Discharge: Yovana Holland Primary Care Provider: Jevon Brothers Condition: Improved Anticipated Discharge Date/Time: 05/04/22 09:25 Discharge Medications: New oxycodone 5 mg tablet 5 mg PO Q6H PRN (Reason: pain) Qty: 20 0RF senna 8.6 mg capsule 8.6 mg PO DAILY PRN (Reason: constipation) Qty: 90 0RF Continued metaxalone 400 mg tablet 400 mg PO DAILY PRN fluticasone propion-salmeterol 500-50 mcg/dose blister with device 1 inh inhalation BID albuterol sulfate 2.5 mg /3 mL (0.083 %) solution for nebulization 2.5 mg inhalation Q4H PRN testosterone cypionate 200 mg/mL oil 300 mg IM Q14D Qty: 10 1RF albuterol sulfate [Ventolin HFA] 90 mcg/actuation HFA aerosol inhaler 2 inh inhalation Q4H PRN (Reason: shortness of breath or wheezing) Qty: 6.7 5RF Discharge Orders: Discharge Order (Routine); Ordered 05/04/22 Ordered By: Yovana Holland Additional Instructions: Change wet to dry dressing to the left open incision daily. Activity Level: No strenuous activity Activity Detail: Activity as tolerated. Avoid strenuous activity. No lifting greater than 20 lb for 6 weeks. Discharge Diet: Regular Follow Up Appointments: Hailee Robertson MD [Staff Physician] - (Two week follow-up.) [facility] Discharge Comments: You were prescribed a narcotic pain medication. In addition you may supplement with Tylenol and/or ibuprofen. Be sure to not exceed greater than 4 g of Tylenol in a 24 hour period. While on narcotic pain medicine please take stool softeners. A prescription of stool softeners has been sent to the pharmacy. Stop if having greater than 2 stools per day. You are okay to shower. Do not soak in a bath or swim for 2 weeks. Avoid applying lotions to the incision sites. You have an open wound where your stoma was. Please continue with wet to dry dressings for this. Please change her dressing once daily.
[2022-05-04 09:54] VITALS: BP 162/97; PULSE 93; RESP 18; TEMP 36.4
[2022-05-04 11:07] VITALS: BP 162/97; PULSE 93; RESP 18; TEMP 36.4
== END 2022-05-04 10:43 | disposition home or self-care (01) | DRG 331 ==
PROVIDERS: Surgery; Admitting Provider Surgery; PCP Family Medicine; Visit Provider Surgery
PROC: 0DBE4ZZ Excision of Large Intestine, Percutaneous Endoscopic Approach (ICD-10-PCS; principal; 2022-04-30 07:45)
DX: Z43.3 Encounter for attention to colostomy (principal); K66.0 Peritoneal adhesions (postprocedural) (postinfection); J45.909 Unspecified asthma, uncomplicated
CPT/HCPCS: 00840; 36415; 76942; 80048; 85025; 88305; A9270; C9290; J0330; J1100; J1170; J1335; J1650; J1885; J2250; J2405; J2704; J2710; J3010; J3475; J3490; J7120

== ENCOUNTER 2022-05-16 08:04 | Outpatient (CLI) | payer OTHER, SELFPAY | END 2022-05-16 08:05 | disposition home or self-care (01) | LOC: NFLDREF 05-17 02:02 | PROVIDERS: PCP Family Medicine; Referring Provider Family Medicine; Visit Provider Surgery | DX: R19.7 Diarrhea, unspecified (principal) | CPT/HCPCS: 87493 ==

== ENCOUNTER 2022-07-02 08:32 | Outpatient (CLI) | payer OTHER, SELFPAY | END 2022-07-02 08:33 | disposition home or self-care (01) | LOC: NFLDREF 22:05 | PROVIDERS: PCP Family Medicine; Referring Provider Family Medicine; Visit Provider Family Medicine | DX: Z01.818 Encounter for other preprocedural examination (principal); R79.89 Other specified abnormal findings of blood chemistry; E78.5 Hyperlipidemia, unspecified | CPT/HCPCS: 80053; 80061; 84270; 84402; 84403 ==

== ENCOUNTER 2022-10-09 11:12 | Outpatient (CLI) | payer OTHER, SELFPAY | END 2022-10-09 11:13 | disposition home or self-care (01) | LOC: NFLDREF 10-10 12:31 | PROVIDERS: PCP Family Medicine; Referring Provider Family Medicine; Visit Provider Family Medicine | DX: R79.89 Other specified abnormal findings of blood chemistry (principal) | CPT/HCPCS: 80076; 84270; 84402; 84403 ==

== ENCOUNTER 2022-12-10 16:31 | Emergency (ER) | payer OTHER, SELFPAY ==
[2022-12-10] VITALS (7 sets, daily range): BP systolic 114–135; BP diastolic 67–89; PULSE 57–68; RESP 18; TEMP 36.5; O2SAT 96–100; BMI 28.2
[2022-12-10 17:24] LABS: PCR FLU A Negative PCR FLU A (Negative); PCR FLU B Negative PCR FLU B (Negative); PCR RSV Negative PCR RSV (Negative)
[2022-12-10 17:30] LABS: SARS PCR* Negative SARS-CoV-2 (Negative)
--- NOTE | 2022-12-10 17:40 | ED.GENADULT ---
HPI - General Adult General Chief complaint: Nausea/Vomiting Stated complaint: Fever and vomiting Time Seen by Provider: 12/10/22 17:30 History of Present Illness HPI narrative: This 42-year-old male comes in reporting sore throat that began yesterday. He has not measured any fever. He does not have any cough. Soon after the sore throat started he began to have nausea with vomiting. He does have a history of complicated diverticulitis and did have a colostomy with a takedown. He reports rather constant abdominal pain but does not have any sign of obstruction or other complication. Related Data Home Medications Medication Instructions Recorded Confirmed albuterol sulfate 2.5 mg/3 mL 2.5 mg inhalation Q4H PRN 04/04/22 05/15/22 (0.083 %) solution for nebulization metaxalone 400 mg tablet 400 mg PO DAILY PRN 04/04/22 05/15/22 Previous Rx's Medication Instructions Recorded albuterol sulfate 90 mcg/actuation 2 inh inhalation Q4H PRN shortness 09/16/22 aerosol inhaler (Ventolin HFA) of breath or wheezing #6.7 grams testosterone cypionate 200 mg/mL 200 mg IM Q14D #10 mL 10/17/22 intramuscular oil Allergies Allergy/AdvReac Type Severity Reaction Status Date / Time Seasonal Allergy Unknown Uncoded 05/15/22 13:30 Talc Allergy Unknown Uncoded 05/15/22 13:30 Review of Systems Status of ROS: Reports: 10 or more systems reviewed and unremarkable except as noted in History and below Narrative: Constitutional: No fevers, no weight gain or loss. Eyes: No discharge. No vision changes. HENT: No congestion, no ear pain. Sore throat as described above. Cardiovascular: No chest pain, no palpitations. Respiratory: No shortness of breath, no wheezes, no cough. Gastrointestinal: No diarrhea. Nausea and vomiting with upper epigastric abdominal pain. Genitourinary: No dysuria, no hematuria. Musculoskeletal: Normal range of motion. Skin: No rashes, no pruritis. Neurological: No dizziness, weakness, sensory change, speech change. Endo/Heme/Allergies: No bruising or bleeding. No polydipsia. Pysch: no suicidality, no anxiety, no insomnia. All other systems reviewed and are negative. [facility] Medical History (Updated 12/10/22 @ 20:50 by Carlos Cohn MD) Sleep apnea with use of continuous positive airway pressure (CPAP) ?G47.30 - Sleep apnea, unspecified (ICD-10) Shortness of breath ?R06.02 - Shortness of breath (ICD-10) Sensation of chest pressure ?R07.89 - Other chest pain (ICD-10) Ingrown nail of great toe of right foot ?L60.0 - Ingrowing nail (ICD-10) Hyperlipidemia ?E78.5 - Hyperlipidemia, unspecified (ICD-10) History of asthma ?Z87.09 - Personal history of other diseases of the respiratory system (ICD-10) Hematochezia ?K92.1 - Melena (ICD-10) GERD (gastroesophageal reflux disease) ?K21.9 - Gastro-esophageal reflux disease without esophagitis (ICD-10) External hemorrhoids ?K64.4 - Residual hemorrhoidal skin tags (ICD-10) Chronic pain (05/11/12) ?G89.29 - Other chronic pain (ICD-10) Anal fissure (02/03/13) ?K60.2 - Anal fissure, unspecified (ICD-10) Acute pharyngitis ?J02.9 - Acute pharyngitis, unspecified (ICD-10) Abdominal pain ?R10.9 - Unspecified abdominal pain (ICD-10) Asthma ?J45.909 - Unspecified asthma, uncomplicated (ICD-10) Diverticulitis of descending colon ?K57.32 - Diverticulitis of large intestine without perforation or abscess without bleeding (ICD-10) Surgical History (Updated 05/07/22 @ 00:01 by Matt Vasquez) Status post cystourethroscopy with dilation of urethral stricture ?Z98.890 - Other specified postprocedural states (ICD-10) History of bilateral inguinal hernia repair ?Z98.890 - Other specified postprocedural states (ICD-10) ?Z87.19 - Personal history of other diseases of the digestive system (ICD-10) Status post hernia repair ?Z98.890 - Other specified postprocedural states (ICD-10) ?Z87.19 - Personal history of other diseases of the digestive system (ICD-10) Family History Mother Breast cancer Social History Narrative: Former smoker- quit 2007 Highest level of school completed/degree received: decline to answer Smoking Status: Never smoker Do you use any of these nicotine containing products: None Second hand tobacco smoke exposure: No How often do you have a drink containing alcohol: 2-3 times a week Alcohol type: beer How many standard drinks containing alcohol do you have on a typical day: 1 or 2 How often do you have six or more drinks on one occasion: Never AUDIT-C Alcohol total score: 3 Non-prescribed substance use: denies use Caffeine: Yes (1 of each/day energy drink diet coke and preworkout) service: No Exam Narrative: Exam Narrative: Constitutional: Well-developed, well-nourished, no acute distress. HEENT: Normocephalic, atraumatic. Neck: Normal range of motion. Nontender. Supple. Heart: Regular. No murmurs. Normal rate. Intact distal pulses. Lungs: Clear to auscultation. No chest discomfort. No wheezes, rhonchi, or rales. Abdomen: Normal bowel sounds. Diffuse tenderness in the abdomen. No rebound tenderness. Genitalia: Deferred. Back: No midline tenderness. Normal range of motion. Extremities: Normal range of motion. No injury. Skin: Intact. No rash. Warm. No erythema or pallor. Neurologic: No altered sensation. No weakness. Alert and oriented. Psychiatric: No suicidality. No anxiety or depression. No insomnia. Nursing notes and vitals signs are reviewed. Const: Vital Signs, click to edit/add: Vital Signs - 24 hr 12/10/22 16:35 12/10/22 19:41 Temperature 97.7 F Pulse Rate [Pulse Oximeter] 57 L 59 L Respiratory Rate 18 18 Blood Pressure [Ri ght Upper Arm] 135/87 130/89 Pulse Oximetry 100 99 Oxygen Delivery Me thod Room Air Room Air Course Vital Signs Vital signs: Initial Vital Signs Temperature 97.7 F 12/10/22 16:35 Temperature Source Temporal Artery Scan 12/10/22 16:35 Pulse Rate 57 L 12/10/22 16:35 Pulse Rhythm Regular 12/10/22 16:35 Respiratory Rate 18 12/10/22 16:35 Blood Pressure 135/87 12/10/22 16:35 Blood Pressure Mean 103 12/10/22 16:35 Blood Pressure Position Sitting 12/10/22 16:35 Pulse Oximetry 100 12/10/22 16:35 Oxygen Delivery Method Room Air 12/10/22 16:35 Vital Signs Temperature 97.7 F 12/10/22 16:35 Pulse Rate 57 L 12/10/22 16:35 Respiratory Rate 18 12/10/22 16:35 Blood Pressure 135/87 12/10/22 16:35 Pulse Oximetry 100 12/10/22 16:35 Oxygen Delivery Method Room Air 12/10/22 16:35 Temperature 97.7 F 12/10/22 16:35 Pulse Rate 59 L 12/10/22 19:41 Respiratory Rate 18 12/10/22 19:41 Blood Pressure 130/89 12/10/22 19:41 Pulse Oximetry 99 12/10/22 19:41 Oxygen Delivery Method Room Air 12/10/22 19:41 Medical Decision Making MDM Narrative Medical decision making narrative: This patient comes in with sore throat and nausea and vomiting with rather mild abdominal pain. These symptoms started yesterday. He was interested in a strep test which returned negative. He also received an oral dose of Zofran which did not bring much relief to his nausea. An IV was then established where he received a L of normal saline, Toradol 30 mg, and Zofran 4 mg. This brought great relief to his symptoms. Lab results returned with reassuring findings. His white count and hemoglobin are slightly elevated which may be due to some volume depletion at the time labs were drawn. The patient is okay to return home. He received [facility] prescriptions for Toradol and Zofran. Lab Data Labs: Lab Results 12/10/22 12/10/22 12/10/22 Range/Units 16:39 17:49 19:35 WBC 13.63 H (4.50-11.00) K/uL RBC 6.06 H (4.30-5.90) m/uL Hgb 17.7 H (13.5-17.5) gm/dL Hct 52.7 (37.0-53.0) % MCV 87 (80-100) fL MCH 29 (26-34) pg MCHC 34 (32-36) gm/dL RDW Coeff of Balbir 13.9 (11.5-15.5) % Plt Count 333 (140-440) K/uL Neut % (Auto) 86.4 H (42.0-72.0) % Lymph % (Auto) 7.7 L (20-44) % [place] % (Auto) 5.1 (0.0-11.0) % Eos % (Auto) 0.6 (0.0-7.0) % Baso % (Auto) 0.1 (0.0-3.0) % Neut # (Auto) 11.80 H (1.7-7.0) K/uL Lymph # (Auto) 1.00 (0.90-2.90) K/uL [place] # (Auto) 0.70 (0.00-0.90) K/UL Eos # (Auto) 0.10 (0.00-0.50) K/uL Baso # (Auto) 0.00 (0.00-0.30) K/uL Abs Immat Gran (auto) 0.00 (0.00-0.30) K/uL Imm/Tot Granulo (auto) 0.1 % Sodium 138 (135-149) mmol/L Potassium 4.4 (3.6-5.1) mmol/L Chloride 101 (96-114) mmol/L Carbon Dioxide 24 (20-32) mmol/L Anion Gap 13 (7-15) mEq/L BUN 17 (5-24) mg/dL Creatinine 0.9 (0.5-1.5) mg/dL Estimated Creat Clear 99.97 Estimated GFR 109 ml/min Glucose 90 (60-115) mg/dL Calcium 9.6 (8.4-10.6) mg/dL SARS-CoV-2 (PCR) Negative SARS-CoV-2 (Negative) Influenza Type A (PCR) Negative PCR FLU A (Negative) Influenza Type B (PCR) Negative PCR FLU B (Negative) RSV (PCR) Negative PCR RSV (Negative) Group A Strep DNA NOT DETECTED (Not Detectd) Discharge Plan Discharge Clinical Impression: Gastroenteritis Patient Disposition: Home, Self-Care Condition: Improved Additional Instructions: Take medication as needed and indicated. Increase diet as tolerated. Follow up with MD or return if worsening. Prescriptions: No Action metaxalone 400 mg tablet 400 mg PO DAILY PRN albuterol sulfate 2.5 mg /3 mL (0.083 %) solution for nebulization 2.5 mg inhalation Q4H PRN albuterol sulfate [Ventolin HFA] 90 mcg/actuation HFA aerosol inhaler 2 inh inhalation Q4H PRN (Reason: shortness of breath or wheezing) Qty: 6.7 11RF testosterone cypionate 200 mg/mL oil 200 mg IM Q14D Qty: 10 1RF Follow Up/Referrals: Jevon Brothers MD [Primary Care Provider] - Stand Alone Forms: [employer] Info Instructions
[2022-12-10] MEDS: ONDANSETRON ODT 4 MG TAB PO (17:49)
[2022-12-10 18:20] LABS: Strep A DNA Probe* NOT DETECTED (Not Detectd)
[2022-12-10] MEDS: 0.9 % SODIUM CHLORIDE 1000 ml 1,000 ML IV (19:32)
[2022-12-10] MEDS: METOCLOPRAMIDE 10 MG TABLET PO (19:32)
[2022-12-10] MEDS: KETOROLAC 30 MG/ML inj IVP (19:40)
[2022-12-10] MEDS: ONDANSETRON 2 MG/ML inj 4 MG IVP (19:40)
[2022-12-10 19:41] LABS: Basophils Percent Auto 0.1 % (0.0-3.0); Eosinophils Percent Auto 0.6 % (0.0-7.0); Hematocrit 52.7 % (37.0-53.0); Hemoglobin* 17.7 gm/dL (13.5-17.5); Immature Granulocytes Pct Auto 0.1 %; Lymphocytes Percent Auto 7.7 % (20-44); Mean Corpuscular HGB Conc 34 gm/dL (32-36); Mean Corpuscular Hemoglobin 29 pg (26-34); Mean Corpuscular Volume 87 fL (80-100); Monocytes Percent Auto 5.1 % (0.0-11.0); Neutrophils Percent Auto 86.4 % (42.0-72.0); Platelet Count* 333 K/uL (140-440); RDW Coefficient of Variation % 13.9 % (11.5-15.5); Red Blood Count 6.06 m/uL (4.30-5.90); White Blood Count* 13.63 K/uL (4.50-11.00)
[2022-12-10 19:51] LABS: Slide Review Reflex No
[2022-12-10 19:57] LABS: Chloride* 101 mmol/L (96-114)
[2022-12-10 19:58] LABS: Potassium* 4.4 mmol/L (3.6-5.1); Sodium* 138 mmol/L (135-149)
[2022-12-10 20:00] LABS: Creatinine* 0.9 mg/dL (0.5-1.5); Est. Creatinine Clearance* 99.97; Estimated Glomerular Filt Rate 109 ml/min
[2022-12-10 20:01] LABS: Anion Gap 13 mEq/L (7-15); Blood Urea Nitrogen* 17 mg/dL (5-24); Calcium* 9.6 mg/dL (8.4-10.6); Carbon Dioxide* 24 mmol/L (20-32); Glucose* 90 mg/dL (60-115)
== END 2022-12-10 21:05 | disposition home or self-care (01) ==
PROVIDERS: Emergency Provider Emergency Medicine Emergency Medical Services; PCP Family Medicine
DX: K52.9 Noninfective gastroenteritis and colitis, unspecified (principal)
CPT/HCPCS: 36415; 80048; 85025; 87631; 87651; 96374; 96375; 99284; A9270; J1885; J2405; J7030

== ENCOUNTER 2022-12-14 12:16 | Inpatient (IN) | payer OTHER, SELFPAY ==
[2022-12-14 12:31] VITALS: BP 141/83; PULSE 70; RESP 18; TEMP 36.7; O2SAT 100; BMI 28.2
--- NOTE | 2022-12-14 14:35 | CRLHL7_ITS ---
For Patients: As a result of the Century Cures Act, medical imaging exams and procedure reports are released immediately into your electronic medical record. You may view this report before your referring provider. If you have questions, please contact your health care provider. INDICATION: Diffuse abd pain TECHNIQUE: CT abdomen and pelvis acquired with 89 cc Isovue 370 IV contrast. COMPARISON: CT October 2021. FINDINGS: Lower chest: The visualized lower lungs are aerated. No pleural or pericardial effusion. ABDOMEN: Liver: Normal enhancement. No focal suspicious hepatic lesions. Gallbladder and biliary: Normal gallbladder without radiopaque stone. Normal caliber bile ducts. Spleen: Normal size and enhancement. Pancreas: Normal enhancement without peripancreatic inflammatory changes or ductal dilatation. Adrenal glands: Normal adrenal glands. Kidneys and ureters: Normal enhancement. No radio-opaque calculi. No hydroureteronephrosis. GI tract: The stomach is relatively decompressed. Fluid-filled dilated loops of small bowel extending into the mid/distal small bowel with transition point at the level of the umbilicus with decompressed more distal loops of small bowel. Area of stranding at the transition point, axial image 87-107, potentially reflecting adhesion. Normal appendix. Colonic diverticula without diverticulitis. Vascular structures: Normal caliber abdominal aorta. Lymph nodes: No lymphadenopathy in the abdomen or pelvis by size criteria. Peritoneum: Small amount of free fluid within the pelvis. No free air. No focal drainable fluid collection. PELVIS: Genitourinary system: Urinary bladder is relatively decompressed. SKELETAL STRUCTURES AND SOFT TISSUES: Tiny fat containing anterior midline ventral hernia. Left L5 pars defect. IMPRESSION: Fluid-filled dilated loops of small bowel extending into the mid/distal small bowel with transition point at the level of the umbilicus with decompressed more distal loops of small bowel. Acute small bowel obstruction. Associated area of stranding at the transition point, potentially reflecting adhesion. Please note that all CT scans at this facility use dose modulation, iterative reconstruction, and/or weight-based dosing when appropriate to reduce radiation dose to as low as reasonably achievable. Dictated by Brent Dumont MD @ 12/14/2022 3:58:34 PM (Electronically Signed)
--- NOTE | 2022-12-14 14:37 | ED_ITS ---
HPI - General Adult General Chief complaint: Nausea/Vomiting Stated complaint: Vomiting and diarrhea Time Seen by Provider: 12/14/22 14:26 Source: patient Mode of arrival: ambulatory Limitations: no limitations History of Present Illness HPI narrative: 42-year-old male presenting today with diarrhea and vomiting going on for 1 week. Patient was seen here 4 days ago and stated that he went home with oral Zofran which did help a little bit and he was somewhat stable in the last 3 days but in the last 36 hours he has not been able to keep anything down and he has been having diarrhea every hour. He complains of abdominal pain that is diffuse encompasses the entire abdomen. Nothing seems to make it worse vomiting does make it a little better. He denies fevers but feels chills on and off. Has had no appetite. Denies any blood in his stool or vomitus. Patient does have a history of diverticulitis with a colonic resection and end colostomy done in October of 2021 with ostomy takedown in April of this year. Related Data Home Medications Medication Instructions Recorded Confirmed albuterol sulfate 2.5 mg/3 mL 2.5 mg inhalation Q4H PRN 04/04/22 05/15/22 (0.083 %) solution for nebulization metaxalone 400 mg tablet 400 mg PO DAILY PRN 04/04/22 05/15/22 Previous Rx's Medication Instructions Recorded albuterol sulfate 90 mcg/actuation 2 inh inhalation Q4H PRN shortness 09/16/22 aerosol inhaler (Ventolin HFA) of breath or wheezing #6.7 grams testosterone cypionate 200 mg/mL 200 mg IM Q14D #10 mL 10/17/22 intramuscular oil Allergies Allergy/AdvReac Type Severity Reaction Status Date / Time Seasonal Allergy Unknown Uncoded 05/15/22 13:30 Talc Allergy Unknown Uncoded 05/15/22 13:30 Review of Systems Status of ROS: Reports: 10 or more systems reviewed and unremarkable except as noted in History and below [facility] Medical History Sleep apnea with use of continuous positive airway pressure (CPAP) ?G47.30 - Sleep apnea, unspecified (ICD-10) Shortness of breath ?R06.02 - Shortness of breath (ICD-10) Sensation of chest pressure ?R07.89 - Other chest pain (ICD-10) Ingrown nail of great toe of right foot ?L60.0 - Ingrowing nail (ICD-10) Hyperlipidemia ?E78.5 - Hyperlipidemia, unspecified (ICD-10) History of asthma ?Z87.09 - Personal history of other diseases of the respiratory system (ICD- 10) Hematochezia ?K92.1 - Melena (ICD-10) GERD (gastroesophageal reflux disease) ?K21.9 - Gastro-esophageal reflux disease without esophagitis (ICD-10) External hemorrhoids ?K64.4 - Residual hemorrhoidal skin tags (ICD-10) Chronic pain (05/11/12) ?G89.29 - Other chronic pain (ICD-10) Anal fissure (02/03/13) ?K60.2 - Anal fissure, unspecified (ICD-10) Acute pharyngitis ?J02.9 - Acute pharyngitis, unspecified (ICD-10) Abdominal pain ?R10.9 - Unspecified abdominal pain (ICD-10) Asthma ?J45.909 - Unspecified asthma, uncomplicated (ICD-10) Diverticulitis of descending colon ?K57.32 - Diverticulitis of large intestine without perforation or abscess without bleeding (ICD-10) Surgical History Status post cystourethroscopy with dilation of urethral stricture ?Z98.890 - Other specified postprocedural states (ICD-10) History of bilateral inguinal hernia repair ?Z98.890 - Other specified postprocedural states (ICD-10) ?Z87.19 - Personal history of other diseases of the digestive system (ICD-10) Status post hernia repair ?Z98.890 - Other specified postprocedural states (ICD-10) ?Z87.19 - Personal history of other diseases of the digestive system (ICD-10) Family History Mother Breast cancer Social History Narrative: Former smoker- quit 2007 Highest level of school completed/degree received: decline to answer Smoking Status: Never smoker Do you use any of these nicotine containing products: None Second hand tobacco smoke exposure: No How often do you have a drink containing alcohol: 2-3 times a week Alcohol type: beer How many standard drinks containing alcohol do you have on a typical day: 1 or 2 How often do you have six or more drinks on one occasion: Never AUDIT-C Alcohol total score: 3 Non-prescribed substance use: denies use Caffeine: Yes (1 of each/day energy drink diet coke and preworkout) service: No Exam Narrative: Exam Narrative: Well-nourished well-developed patient, appears very uncomfortable. Alert and oriented x3. Answers questions appropriately. Mood and affect are appropriate. Thoughts are goal oriented and rational. No tangential or magical thinking noted. Patient speaks in full sentences without needing to catch his breath. Speech is not slurred or pressured. HEENT: Normocephalic atraumatic. Pupils are equally round reactive to light. Extraocular muscles are intact. Conjunctivae are moist without any icterus noted. Moist mucous membranes. Posterior pharynx is normal. Neck is soft without any lymphadenopathy or thyromegaly. No masses are appreciated. Cardiovascular: Heart is regular rate and rhythm S1 and S2 are present without any murmurs. Lungs: Clear to auscultation bilaterally no wheezes rhonchi or rales are appreciated. Patient takes deep breaths without any discomfort. Abdomen: Soft and nondistended with hyperactive bowel sounds. He has diffuse mild tenderness throughout the entire abdomen. He has no peritoneal signs. No guarding. Extremities: Bilateral lower extremities are without edema. Normal DP and PT pulses. Skin: Well perfused without any obvious rashes. Const: Vital Signs, click to edit/add: Vital Signs - 24 hr 12/14/22 12:31 Temperature 98.1 F Pulse Rate [Pulse Oximeter] 70 Respiratory Rate 18 Blood Pressure [Ri ght Upper Arm] 141/83 H Pulse Oximetry 100 Oxygen Delivery Me thod Room Air Intubated Course Course ED Course: IV is established and patient received L of normal saline and IV Zofran. Labs were drawn: Labs were fairly unremarkable. Abdominal CT is ordered: This showed a small-bowel obstruction. Discussed case with Dr. Robertson who suggests admission, NG tube placement and monitoring. Vital Signs Vital signs: Initial Vital Signs Temperature 98.1 F 12/14/22 12:31 Temperature Source Temporal Artery Scan 12/14/22 12:31 Pulse Rate 70 12/14/22 12:31 Respiratory Rate 18 12/14/22 12:31 Blood Pressure 141/83 H 12/14/22 12:31 Blood Pressure Mean 102 12/14/22 12:31 Blood Pressure Position Supine 12/14/22 12:31 Pulse Oximetry 100 12/14/22 12:31 Oxygen Delivery Method Room Air, Intubated 12/14/22 12:31 Vital Signs Temperature 98.1 F 12/14/22 12:31 Pulse Rate 70 12/14/22 12:31 Respiratory Rate 18 12/14/22 12:31 Blood Pressure 141/83 H 12/14/22 12:31 Pulse Oximetry 100 12/14/22 12:31 Oxygen Delivery Method Room Air, Intubated 12/14/22 12:31 Temperature 98.1 F 12/14/22 12:31 Pulse Rate 70 12/14/22 12:31 Respiratory Rate 18 12/14/22 12:31 Blood Pressure 141/83 H 12/14/22 12:31 Pulse Oximetry 100 12/14/22 12:31 Oxygen Delivery Method Room Air, Intubated 12/14/22 12:31 Medical Decision Making MDM Narrative Medical decision making narrative: 42-year-old male presenting with a small-bowel obstruction. Patient be admitted per above. Medical Records Medical records reviewed: Yes I reviewed the patient's medical records Lab Data Lab results reviewed: Yes I reviewed the patient's lab results Labs: Lab Results 12/14/22 Range/Units 14:50 WBC 8.18 (4.50-11.00) K/uL RBC 5.47 (4.30-5.90) m/uL Hgb 15.8 (13.5-17.5) gm/dL Hct 48.0 (37.0-53.0) % MCV 88 (80-100) fL MCH 29 (26-34) pg MCHC 33 (32-36) gm/dL RDW Coeff of Balbir 14.1 (11.5-15.5) % Plt Count 274 (140-440) K/uL Neut % (Auto) 85.3 H (42.0-72.0) % Lymph % (Auto) 4.9 L (20-44) % [place] % (Auto) 9.3 (0.0-11.0) % Eos % (Auto) 0.4 (0.0-7.0) % Baso % (Auto) 0.1 (0.0-3.0) % Neut # (Auto) 7.00 (1.7-7.0) K/uL Lymph # (Auto) 0.40 L (0.90-2.90) K/uL [place] # (Auto) 0.80 (0.00-0.90) K/UL Eos # (Auto) 0.03 (0.00-0.50) K/uL Baso # (Auto) 0.01 (0.00-0.30) K/uL Abs Immat Gran (auto) 0.00 (0.00-0.30) K/uL Imm/Tot Granulo (auto) 0.0 % Sodium 138 (135-149) mmol/L Potassium 4.1 (3.6-5.1) mmol/L Chloride 101 (96-114) mmol/L Carbon Dioxide 25 (20-32) mmol/L Anion Gap 12 (7-15) mEq/L BUN 16 (5-24) mg/dL Creatinine 0.8 (0.5-1.5) mg/dL Estimated Creat Clear 112.46 Estimated GFR 113 ml/min Glucose 96 (60-115) mg/dL Lactate 1.0 (0.5-1.9) mmol/L Calcium 9.2 (8.4-10.6) mg/dL Magnesium 2.0 (1.5-2.6) mg/dL Total Bilirubin 1.1 (0.1-1.5) mg/dL Direct Bilirubin 0.0 (0.0-0.5) mg/dL AST 30 (12-35) U/L ALT 28 (4-50) U/L Alkaline Phosphatase 57 (40-150) U/L C-Reactive Protein 2.1 H (0.5-1.0) mg/dL Total Protein 7.4 (6.0-8.3) g/dL Albumin 4.4 (3.3-5.0) g/dL Lipase 26 (23-300) U/L Imaging Data CT scan - abdomen: Attestation: I have reviewed the pertinent imaging results. Radiologist's impression: Diffuse abd pain TECHNIQUE: CT abdomen and pelvis acquired with 89 cc Isovue 370 IV contrast. COMPARISON: CT October 2021. FINDINGS: Lower chest: The visualized lower lungs are aerated. No pleural or pericardial effusion. ABDOMEN: Liver: Normal enhancement. No focal suspicious hepatic lesions. Gallbladder and biliary: Normal gallbladder without radiopaque stone. Normal caliber bile ducts. Spleen: Normal size and enhancement. Pancreas: Normal enhancement without peripancreatic inflammatory changes or ductal dilatation. Adrenal glands: Normal adrenal glands. Kidneys and ureters: Normal enhancement. No radio-opaque calculi. No hydroureteronephrosis. GI tract: The stomach is relatively decompressed. Fluid-filled dilated loops of small bowel extending into the mid/distal small bowel with transition point at the level of the umbilicus with decompressed more distal loops of small bowel. Area of stranding at the transition point, axial image 87-107, potentially reflecting adhesion. Normal appendix. Colonic diverticula without diverticulitis. Vascular structures: Normal caliber abdominal aorta. Lymph nodes: No lymphadenopathy in the abdomen or pelvis by size criteria. Peritoneum: Small amount of free fluid within the pelvis. No free air. No focal drainable fluid collection. PELVIS: Genitourinary system: Urinary bladder is relatively decompressed. SKELETAL STRUCTURES AND SOFT TISSUES: Tiny fat containing anterior midline ventral hernia. Left L5 pars defect. IMPRESSION: Fluid-filled dilated loops of small bowel extending into the mid/distal small bowel with transition point at the level of the umbilicus with decompressed more distal loops of small bowel. Acute small bowel obstruction. Associated area of stranding at the transition point, potentially reflecting adhesion. Discharge Plan Discharge Clinical Impression: Small bowel obstruction Patient Disposition: Admitted As Observation Condition: Stable Prescriptions: No Action metaxalone 400 mg tablet 400 mg PO DAILY PRN albuterol sulfate 2.5 mg /3 mL (0.083 %) solution for nebulization 2.5 mg inhalation Q4H PRN albuterol sulfate [Ventolin HFA] 90 mcg/actuation HFA aerosol inhaler 2 inh inhalation Q4H PRN (Reason: shortness of breath or wheezing) Qty: 6.7 11RF testosterone cypionate 200 mg/mL oil 200 mg IM Q14D Qty: 10 1RF Follow Up/Referrals: Jevon Brothers MD [Primary Care Provider] -
[2022-12-14] MEDS: 0.9 % SODIUM CHLORIDE 1000 ml 1,000 ML IV (14:56)
[2022-12-14] MEDS: ONDANSETRON 2 MG/ML inj 4 MG IVP (14:56)
[2022-12-14 15:09] LABS: Basophils Absolute Auto 0.01 K/uL (0.00-0.30); Basophils Percent Auto 0.1 % (0.0-3.0); Eosinophils Absolute Auto 0.03 K/uL (0.00-0.50); Eosinophils Percent Auto 0.4 % (0.0-7.0); Hemoglobin* 15.8 gm/dL (13.5-17.5); Lymphocytes Percent Auto 4.9 % (20-44); Mean Corpuscular HGB Conc 33 gm/dL (32-36); Mean Corpuscular Hemoglobin 29 pg (26-34); Mean Corpuscular Volume 88 fL (80-100); Monocytes Percent Auto 9.3 % (0.0-11.0); Neutrophils Percent Auto 85.3 % (42.0-72.0); Platelet Count* 274 K/uL (140-440); RDW Coefficient of Variation % 14.1 % (11.5-15.5); Red Blood Count 5.47 m/uL (4.30-5.90); White Blood Count* 8.18 K/uL (4.50-11.00)
[2022-12-14 15:16] LABS: Slide Review Reflex No
[2022-12-14 15:25] LABS: Chloride* 101 mmol/L (96-114)
[2022-12-14 15:26] LABS: Albumin* 4.4 g/dL (3.3-5.0); Potassium* 4.1 mmol/L (3.6-5.1); Sodium* 138 mmol/L (135-149)
[2022-12-14 15:28] LABS: Anion Gap 12 mEq/L (7-15); Carbon Dioxide* 25 mmol/L (20-32); Creatinine* 0.8 mg/dL (0.5-1.5); Est. Creatinine Clearance* 112.46; Estimated Glomerular Filt Rate 113 ml/min
[2022-12-14 15:29] LABS: Bilirubin Total* 1.1 mg/dL (0.1-1.5); Blood Urea Nitrogen* 16 mg/dL (5-24); Calcium* 9.2 mg/dL (8.4-10.6); Glucose* 96 mg/dL (60-115)
[2022-12-14 15:30] LABS: Alanine Aminotransferase* 28 U/L (4-50); Alkaline Phosphatase* 57 U/L (40-150); Aspartate Amino Transferase* 30 U/L (12-35); Lipase* 26 U/L (23-300); Total Protein* 7.4 g/dL (6.0-8.3)
[2022-12-14 15:33] LABS: C Reactive Protein* 2.1 mg/dL (0.5-1.0)
[2022-12-14] MEDS: HYDROmorphone 0.5 mg/0.5 ml inj IVP ×2 (16:40→22:35)
--- NOTE | 2022-12-14 17:36 | ED.NURSE ---
RN to RN report given , room 262. NG tube attempt, failed. During attempt, large amount of increased resistance, tube attempt stopped. MD informed. stated to hold off on NG tube at this point.
--- NOTE | 2022-12-14 18:36 | CRLHL7_ITS ---
For Patients: As a result of the Cures Act, medical imaging exams and procedure reports are released immediately into your electronic medical record. You may view this report before your referring provider. If you have questions, please contact your health care provider. INDICATION: Nasogastric tube placement. TECHNIQUE: Supine view of the abdomen and pelvis. FINDINGS: Enteric tube well back upon itself in the gastric fundus. Contrast in the genitourinary tract from a recent contrast-enhanced CT. Distended small bowel loops. IMPRESSION: Enteric tube tip coiled back upon itself at the gastric fundus. Dictated by Marbin Sanchez MD @ 12/14/2022 6:57:41 PM (Electronically Signed)
[2022-12-14 18:38] VITALS: BP 131/71; PULSE 80; RESP 20; TEMP 36.8; O2SAT 100
--- NOTE | 2022-12-14 19:00 | PC.NURSE ---
Patient arrived to the unit around 1800.. NG tube was placed by Deanna @ 63cm. 150 out of green gastric content. No other concerns at this time no pain reported just uncomfortable from NG insertion. Call light within reach.
[2022-12-14 19:03] VITALS: BP 134/74; PULSE 70; RESP 18; TEMP 37.3; O2SAT 99
--- NOTE | 2022-12-14 19:15 | PM.IMHP1 ---
Hospitalist- H&P: HPI History of Present Illness Date Seen: 12/14/22 Chief complaint: Vomiting and diarrhea Narrative: Justen Benitez is a 42 year old male admitted to the hospital with small-bowel obstruction. For last 5 days he has had vomiting and diarrhea until last night when he had only intractable vomiting. He was seen in the emergency department 4 days ago and diagnosed with gastroenteritis with his vomiting and diarrhea. He has not had a fever. There is no blood in his stool or blood in his emesis. He has not had any exposures to anybody also has been ill. For last 2 days he has been unable to keep any food or fluid down. October of 2021 he had left hemicolectomy for perforated diverticulitis. He had a diverting colostomy. This colostomy was taken down in May of 2022. He subsequently has been doing well without complications until this past week. Other abdominal surgery includes umbilical hernia repair with mesh about a decade ago. Review of Systems Narrative: Patient reports he has been doing well except for the gastrointestinal symptoms as noted above. Specifically no cold, cough, shortness of breath, chest pain. No urinary problems. Greenish appearing emesis and brownish appearing diarrhea stool. No blood. Abdominal pain has been manageable. [facility] Medical History (Updated 12/14/22 @ 19:30 by Nayan Candelaria MD) Obesity ?E66.9 - Obesity, unspecified (ICD-10) Wrist fracture, right ?S62.101A - Fracture of unspecified carpal bone, right wrist, initial encounter for closed fracture (ICD-10) Sleep apnea with use of continuous positive airway pressure (CPAP) ?G47.30 - Sleep apnea, unspecified (ICD-10) Shortness of breath ?R06.02 - Shortness of breath (ICD-10) Sensation of chest pressure ?R07.89 - Other chest pain (ICD-10) Ingrown nail of great toe of right foot ?L60.0 - Ingrowing nail (ICD-10) Hyperlipidemia ?E78.5 - Hyperlipidemia, unspecified (ICD-10) History of asthma ?Z87.09 - Personal history of other diseases of the respiratory system (ICD-10) Hematochezia ?K92.1 - Melena (ICD-10) GERD (gastroesophageal reflux disease) ?K21.9 - Gastro-esophageal reflux disease without esophagitis (ICD-10) External hemorrhoids ?K64.4 - Residual hemorrhoidal skin tags (ICD-10) Chronic pain (05/11/12) ?G89.29 - Other chronic pain (ICD-10) Anal fissure (02/03/13) ?K60.2 - Anal fissure, unspecified (ICD-10) Acute pharyngitis ?J02.9 - Acute pharyngitis, unspecified (ICD-10) Abdominal pain ?R10.9 - Unspecified abdominal pain (ICD-10) Asthma ?J45.909 - Unspecified asthma, uncomplicated (ICD-10) Diverticulitis of descending colon ?K57.32 - Diverticulitis of large intestine without perforation or abscess without bleeding (ICD-10) Surgical History (Updated 12/14/22 @ 19:23 by Nayan Candelaria MD) History of arthroscopy of left shoulder ?Z98.890 - Other specified postprocedural states (ICD-10) Status post cystourethroscopy with dilation of urethral stricture ?Z98.890 - Other specified postprocedural states (ICD-10) History of bilateral inguinal hernia repair ?Z98.890 - Other specified postprocedural states (ICD-10) ?Z87.19 - Personal history of other diseases of the digestive system (ICD-10) Status post hernia repair ?Z98.890 - Other specified postprocedural states (ICD-10) ?Z87.19 - Personal history of other diseases of the digestive system (ICD-10) Family History Mother Breast cancer Social History (Updated 12/14/22 @ 19:24 by Nayan Candelaria MD) Narrative: He lives with his . works at the clinic. Former smoker- quit 2006. Formally drank infrequently now none in the last 3 months. Code status is full What is your current living situation?: I presently have a place to live Problems where you live: no known problems Problems where you live details: none In the past 12 months, utilities in danger of being shut off: no In past 12 months, lack of transportation kept you from medical appts, meetings, work, or getting things needed for daily living: no In the past 12 mos, have been you worried that your food would run out before you had money to buy more?: never true In the past 12 mos, the food you bought just didn't last and you didn't have money to buy more?: never true Highest level of school completed/degree received: decline to answer Smoking Status: Never smoker Do you use any of these nicotine containing products: None Second hand tobacco smoke exposure: No How often do you have a drink containing alcohol: never How many standard drinks containing alcohol do you have on a typical day: 1 or 2 How often do you have six or more drinks on one occasion: Never AUDIT-C Alcohol total score: 0 Non-prescribed substance use: denies use Caffeine: Yes (daily) How often does anyone, including family, friends and others, physically hurt you: never How often does anyone, including family, friends and others, insult or talk down to you: never How often does anyone, including family, friends and others, threaten you with harm: never How often does anyone, including family, friends and others, scream or curse at you: never service: No Meds Home Medications and Allergies Home Medications Medication Instructions Recorded Confirmed Type albuterol sulfate 2.5 mg/3 mL 2.5 mg inhalation Q4H PRN 04/04/22 05/15/22 History (0.083 %) solution for nebulization metaxalone 400 mg tablet 400 mg PO DAILY PRN 04/04/22 05/15/22 History Allergies Allergy/AdvReac Type Severity Reaction Status Date / Time Seasonal Allergy Unknown Uncoded 05/15/22 13:30 Talc Allergy Unknown Uncoded 05/15/22 13:30 Exam Narrative: Exam Narrative: He is alert and appears in mild distress. NG tube in place. Eyes normal. Oropharynx with dry mucous membranes. Neck is supple without mass or adenopathy. Respirations are clear to auscultation. Cardiovascular: S1, S2, regular rate and rhythm. Abdomen: Bowel sounds are diminished. Abdomen is soft with mild diffuse tenderness no focal tenderness or mass. Extremities without edema. Good peripheral pulses. Const: Vital Signs, click to edit/add: Vital Signs - 24 hr 12/14/22 12:31 12/14/22 18:38 Temperature 98.1 F 98.2 F Pulse Rate [Left P ulse Oximeter] 80 Pulse Rate [Pulse Oximeter] 70 Respiratory Rate 18 20 Blood Pressure [Le ft Arm] 131/71 Blood Pressure [Ri ght Upper Arm] 141/83 H Pulse Oximetry 100 100 Oxygen Delivery Me thod Room Air Intubated Room Air Documenting provider has reviewed patient's vital signs: yes Hospitalist - H&P: Result Labs Labs: Short CBC 12/14/22 Range/Units 14:50 WBC 8.18 (4.50-11.00) K/uL Hgb 15.8 (13.5-17.5) gm/dL Hct 48.0 (37.0-53.0) % Plt Count 274 (140-440) K/uL BMP 12/14/22 14:50 Sodium 138 Potassium 4.1 Chloride 101 Carbon Dioxide 25 BUN 16 Creatinine 0.8 Glucose 96 Calcium 9.2 Liver Function 12/14/22 Range/Units 14:50 Total Bilirubin 1.1 (0.1-1.5) mg/dL Direct Bilirubin 0.0 (0.0-0.5) mg/dL AST 30 (12-35) U/L ALT 28 (4-50) U/L Alkaline Phosphatase 57 (40-150) U/L Albumin 4.4 (3.3-5.0) g/dL Imaging CT scan - abdomen: Radiologist's impression: NDICATION: Diffuse abd pain TECHNIQUE: CT abdomen and pelvis acquired with 89 cc Isovue 370 IV contrast. COMPARISON: CT October 2021. FINDINGS: Lower chest: The visualized lower lungs are aerated. No pleural or pericardial effusion. ABDOMEN: Liver: Normal enhancement. No focal suspicious hepatic lesions. Gallbladder and biliary: Normal gallbladder without radiopaque stone. Normal caliber bile ducts. Spleen: Normal size and enhancement. Pancreas: Normal enhancement without peripancreatic inflammatory changes or ductal dilatation. Adrenal glands: Normal adrenal glands. Kidneys and ureters: Normal enhancement. No radio-opaque calculi. No hydroureteronephrosis. GI tract: The stomach is relatively decompressed. Fluid-filled dilated loops of small bowel extending into the mid/distal small bowel with transition point at the level of the umbilicus with decompressed more distal loops of small bowel. Area of stranding at the transition point, axial image 87-107, potentially reflecting adhesion. Normal appendix. Colonic diverticula without diverticulitis. Vascular structures: Normal caliber abdominal aorta. Lymph nodes: No lymphadenopathy in the abdomen or pelvis by size criteria. Peritoneum: Small amount of free fluid within the pelvis. No free air. No focal drainable fluid collection. PELVIS: Genitourinary system: Urinary bladder is relatively decompressed. SKELETAL STRUCTURES AND SOFT TISSUES: Tiny fat containing anterior midline ventral hernia. Left L5 pars defect. IMPRESSION: Fluid-filled dilated loops of small bowel extending into the mid/distal small bowel with transition point at the level of the umbilicus with decompressed more distal loops of small bowel. Acute small bowel obstruction. Associated area of stranding at the transition point, potentially reflecting adhesion. Assessment and Plan Assessment and plan (1) Small bowel obstruction: Problem comment: Small-bowel obstruction likely due to surgical adhesions. Admit for conservative management, and nasogastric suctioning, IV pain medication, IV fluids. Status: Acute (2) Asthma: Problem comment: Quiescent Status: Acute Plan Patient be admitted to the hospital for conservative management of small bowel obstruction in consultation with Dr. Robertson. Plan of care was discussed with the patient. Total time spent today is 60 minutes, 40 minutes in coordination of care discussing with patient and other providers management of small-bowel obstruction
[2022-12-14] MEDS: 5 % DEXTROSE IN LAC RINGER'S 1,000 ML 150 ML IV (19:31)
[2022-12-14] MEDS: SODIUM CHLORIDE 0.9 % (FLUSH) 10 ML SYRINGE 5 ML IVF (19:35)
[2022-12-14 21:12] LABS: C.Difficile Negative (Negative); CDIFFEPI 027 PRESUMPTIVE NEGATIVE (Negative)
[2022-12-14] MEDS: ENOXAPARIN 40 MG/0.4 ML INJ SUBCUT (21:57)
[2022-12-14 23:00] VITALS: BP 141/82; PULSE 71; RESP 18; TEMP 37.2; O2SAT 99
[2022-12-15] MEDS: 5 % DEXTROSE IN LAC RINGER'S 1,000 ML 150 ML IV ×4 (02:14→23:45)
[2022-12-15 02:46] VITALS: BP 143/82; PULSE 69; RESP 18; TEMP 37.3; O2SAT 100
--- NOTE | 2022-12-15 04:55 | PC.NURSE ---
Shift note: Pt had frequent BM about 10x for the entire 12hour shift. Bedside commode given for comfort. NG tube continue to drain greenish color gastric content. Pt denied nausea and distention. Complained of discomfort with the NG tube. Pt maintained on NPO, ice chips given upon request. Pt requested for PRN pain medication for abdominal pain level 5 at 0200. Deluded given which appeared effective. No fever observed.
[2022-12-15] MEDS: KETOROLAC 15 MG/ML inj IVP ×3 (05:25→18:15)
[2022-12-15 07:00] VITALS: BP 125/75; PULSE 75; RESP 16; TEMP 36.8; O2SAT 98
[2022-12-15 07:05] LABS: Lactate* 0.6 mmol/L (0.5-1.9)
[2022-12-15 07:21] LABS: Basophils Percent Auto 0.2 % (0.0-3.0); Eosinophils Percent Auto 4.3 % (0.0-7.0); Hematocrit 42.9 % (37.0-53.0); Hemoglobin* 14.1 gm/dL (13.5-17.5); Mean Corpuscular HGB Conc 33 gm/dL (32-36); Mean Corpuscular Hemoglobin 29 pg (26-34); Mean Corpuscular Volume 88 fL (80-100); Monocytes Percent Auto 19.2 % (0.0-11.0); Neutrophils Percent Auto 59.3 % (42.0-72.0); Platelet Count* 241 K/uL (140-440); RDW Coefficient of Variation % 13.9 % (11.5-15.5); Red Blood Count 4.86 m/uL (4.30-5.90); White Blood Count* 4.47 K/uL (4.50-11.00)
[2022-12-15 07:27] LABS: Slide Review Reflex No
[2022-12-15 07:34] LABS: Chloride* 104 mmol/L (96-114); Potassium* 3.9 mmol/L (3.6-5.1); Sodium* 138 mmol/L (135-149)
--- NOTE | 2022-12-15 07:34 | P.IMPN_ITS ---
Progress Note: A&P Assessment and plan (1) Small bowel obstruction: Problem details: Small-bowel obstruction likely due to surgical adhesions. Admit for conservative management, and nasogastric suctioning, IV pain medication, IV fluids. Status: Acute (2) Diarrhea: Problem details: Fairly severe diarrhea prior to admission and now recurrent after admission. Possibly gastroenteritis and a or small-bowel obstruction with gastroenteritis. DC NG. Status: Acute Plan Continue in-hospital for monitoring of gastrointestinal illness. Discharge when able to maintain adequate p.o. intake and clinically improving Time Spent With Patient Total time spent: Total time spent today is 40 minutes, 30 minutes in coordination of care discussed with patient, surgery and other providers ongoing evaluation management of gastroenteritis and possible partial bowel obstruction Subjective Date Seen: 12/15/22 Interval history: 42-year-old male with left hemicolectomy 14 months ago and takedown of colostomy 7 months ago presents with a 5 day history of severe vomiting and diarrhea. Patient had stopped having diarrhea approximately 1 day prior to admission with increasing vomiting and abdominal pain. On admission CT imaging showed he had a small bowel obstruction with a transition point around the umbilicus. On admission NG tube was placed. He has had a moderate amount of NG drainage. Overnight he resumed having diarrhea at least every hour through the night. He has no abdominal pain. Exam 2 Narrative: Exam Narrative: Alert, tired appearing, but in no obvious distress. NG tube draining add dark greenish fluid. Respirations are clear to auscultation. Cardiovascular: S1, S2, regular rate and rhythm. Abdomen: Bowel sounds are active. Abdomen is soft without tenderness or mass. Extremities without edema. Const: Vital Signs, click to edit/add: Vital Signs - 24 hr 12/14/22 12:31 12/14/22 18:38 12/14/22 19:03 Temperature 98.1 F 98.2 F 99.2 F Pulse Rate [Left P ulse Oximeter] 80 70 Pulse Rate [Pulse Oximeter] 70 Respiratory Rate 18 20 18 Blood Pressure [Le ft Arm] 131/71 134/74 Blood Pressure [Ri ght Upper Arm] 141/83 H Pulse Oximetry 100 100 99 Oxygen Delivery Me thod Room Air Intubated Room Air Room Air 12/14/22 23:00 12/14/22 23:00 12/15/22 02:46 Temperature 98.9 F 99.1 F Pulse Rate [Left P ulse Oximeter] 71 69 Pulse Rate [Pulse Oximeter] Respiratory Rate 18 18 18 Blood Pressure [Le ft Arm] 141/82 H 143/82 H Blood Pressure [Ri ght Upper Arm] Pulse Oximetry 99 100 Oxygen Delivery Me thod Room Air Room Air Documenting provider has reviewed patient's vital signs: yes Labs Labs: Laboratory Results - last 24 hr 12/14/22 12/14/22 12/15/22 14:50 20:08 06:28 WBC 8.18 4.47 L RBC 5.47 4.86 Hgb 15.8 14.1 Hct 48.0 42.9 MCV 88 88 MCH 29 29 MCHC 33 33 RDW Coeff of Balbir 14.1 13.9 Plt Count 274 241 Neut % (Auto) 85.3 H 59.3 Lymph % (Auto) 4.9 L 17.0 L [place] % (Auto) 9.3 19.2 H Eos % (Auto) 0.4 4.3 Baso % (Auto) 0.1 0.2 Neut # (Auto) 7.00 2.70 Lymph # (Auto) 0.40 L 0.80 L [place] # (Auto) 0.80 0.90 Eos # (Auto) 0.03 0.20 Baso # (Auto) 0.01 0.00 Abs Immat Gran (auto) 0.00 0.00 Imm/Tot Granulo (auto) 0.0 0.0 Sodium 138 Potassium 4.1 Chloride 101 Carbon Dioxide 25 Anion Gap 12 BUN 16 Creatinine 0.8 Estimated Creat Clear 112.46 Estimated GFR 113 Glucose 96 Lactate 1.0 Calcium 9.2 Magnesium 2.0 Total Bilirubin 1.1 Direct Bilirubin 0.0 AST 30 ALT 28 Alkaline Phosphatase 57 C-Reactive Protein 2.1 H Total Protein 7.4 Albumin 4.4 Lipase 26 Stl C. diff Tox B Gene Negative Stl C. diff [id number] PRESUMPTIVE NEGATIVE 12/15/22 06:30 WBC RBC Hgb Hct MCV MCH MCHC RDW Coeff of Balbir Plt Count Neut % (Auto) Lymph % (Auto) [place] % (Auto) Eos % (Auto) Baso % (Auto) Neut # (Auto) Lymph # (Auto) [place] # (Auto) Eos # (Auto) Baso # (Auto) Abs Immat Gran (auto) Imm/Tot Granulo (auto) Sodium Potassium Chloride Carbon Dioxide Anion Gap BUN Creatinine Estimated Creat Clear Estimated GFR Glucose Lactate 0.6 Calcium Magnesium Total Bilirubin Direct Bilirubin AST ALT Alkaline Phosphatase C-Reactive Protein Total Protein Albumin Lipase Stl C. diff Tox B Gene Stl C. diff [id number]
[2022-12-15 07:37] LABS: Anion Gap 8 mEq/L (7-15); Carbon Dioxide* 26 mmol/L (20-32); Creatinine* 0.8 mg/dL (0.5-1.5); Est. Creatinine Clearance* 112.46; Estimated Glomerular Filt Rate 113 ml/min
[2022-12-15 07:38] LABS: Blood Urea Nitrogen* 14 mg/dL (5-24); Calcium* 8.6 mg/dL (8.4-10.6); Glucose* 116 mg/dL (60-115)
--- NOTE | 2022-12-15 08:40 | CRLHL7_ITS ---
For Patients: As a result of the Century Cures Act, medical imaging exams and procedure reports are released immediately into your electronic medical record. You may view this report before your referring provider. If you have questions, please contact your health care provider. INDICATION: Small-bowel obstruction. TECHNIQUE: Flat and upright abdomen. COMPARISON: 12/14/2022. FINDINGS: NG tube tip in the distal stomach. Persistent dilated loops of small bowel in the left upper quadrant consistent with small bowel obstruction. No free air. Dictated by Aleksandr Carroll MD @ 12/15/2022 11:31:52 AM (Electronically Signed)
[2022-12-15] MEDS: ACETAMINOPHEN 325 MG TABLET 650 MG PO (09:05)
[2022-12-15 11:00] VITALS: BP 120/76; PULSE 65; RESP 16; TEMP 36.8; O2SAT 98
--- NOTE | 2022-12-15 11:32 | P.GSCN_ITS ---
History of Present Illness Consult details Date Seen: 12/15/22 Consult date: 12/15/22 Narrative: Patient is a 42 year old male who was admitted to the hospital with a small- bowel obstruction. He initially presented to the emergency department on 12/10/2022 with persistent vomiting and diarrhea. This continued throughout the week. When he presented to the emergency department he had 24 hours of no diarrhea with persistent vomiting. Workup was obtained with CT scan demonstrating small-bowel obstruction with transition around the umbilicus. His abdominal surgical history is positive for an exploratory laparotomy with sigmoidectomy and end colostomy secondary to diverticular disease, as well as a colostomy takedown. Overnight his abdominal pain has improved. He did start having diarrhea again and continues to pass a lot of gas. Denies any current nausea, no significant appetite. His NG tube is bothering him. He reports that the output has slowed down compared to last night and is clear in presentation. Review of Systems Status of ROS: Reports: 6 or more systems reviewed and unremarkable except as noted in History and below [facility] Medical History (Updated 12/15/22 @ 07:39 by Nayan Candelaria MD) Obesity ?E66.9 - Obesity, unspecified (ICD-10) Wrist fracture, right ?S62.101A - Fracture of unspecified carpal bone, right wrist, initial encounter for closed fracture (ICD-10) Sleep apnea with use of continuous positive airway pressure (CPAP) ?G47.30 - Sleep apnea, unspecified (ICD-10) Shortness of breath ?R06.02 - Shortness of breath (ICD-10) Sensation of chest pressure ?R07.89 - Other chest pain (ICD-10) Ingrown nail of great toe of right foot ?L60.0 - Ingrowing nail (ICD-10) Hyperlipidemia ?E78.5 - Hyperlipidemia, unspecified (ICD-10) History of asthma ?Z87.09 - Personal history of other diseases of the respiratory system (ICD- 10) Hematochezia ?K92.1 - Melena (ICD-10) GERD (gastroesophageal reflux disease) ?K21.9 - Gastro-esophageal reflux disease without esophagitis (ICD-10) External hemorrhoids ?K64.4 - Residual hemorrhoidal skin tags (ICD-10) Chronic pain (05/11/12) ?G89.29 - Other chronic pain (ICD-10) Anal fissure (02/03/13) ?K60.2 - Anal fissure, unspecified (ICD-10) Acute pharyngitis ?J02.9 - Acute pharyngitis, unspecified (ICD-10) Abdominal pain ?R10.9 - Unspecified abdominal pain (ICD-10) Asthma ?J45.909 - Unspecified asthma, uncomplicated (ICD-10) Diverticulitis of descending colon ?K57.32 - Diverticulitis of large intestine without perforation or abscess without bleeding (ICD-10) Surgical History (Updated 12/14/22 @ 19:23 by Nayan Candelaria MD) History of arthroscopy of left shoulder ?Z98.890 - Other specified postprocedural states (ICD-10) Status post cystourethroscopy with dilation of urethral stricture ?Z98.890 - Other specified postprocedural states (ICD-10) History of bilateral inguinal hernia repair ?Z98.890 - Other specified postprocedural states (ICD-10) ?Z87.19 - Personal history of other diseases of the digestive system (ICD-10) Status post hernia repair ?Z98.890 - Other specified postprocedural states (ICD-10) ?Z87.19 - Personal history of other diseases of the digestive system (ICD-10) Family History Mother Breast cancer Social History (Updated 12/14/22 @ 19:24 by Nayan Candelaria MD) Narrative: He lives with his . works at the clinic. Former smoker- quit 2006. Formally drank infrequently now none in the last 3 months. Code status is full What is your current living situation?: I presently have a place to live Problems where you live: no known problems Problems where you live details: none In the past 12 months, utilities in danger of being shut off: no In past 12 months, lack of transportation kept you from medical appts, meetings, work, or getting things needed for daily living: no In the past 12 mos, have been you worried that your food would run out before you had money to buy more?: never true In the past 12 mos, the food you bought just didn't last and you didn't have money to buy more?: never true Highest level of school completed/degree received: decline to answer Smoking Status: Never smoker Do you use any of these nicotine containing products: None Second hand tobacco smoke exposure: No How often do you have a drink containing alcohol: never How many standard drinks containing alcohol do you have on a typical day: 1 or 2 How often do you have six or more drinks on one occasion: Never AUDIT-C Alcohol total score: 0 Non-prescribed substance use: denies use Caffeine: Yes (daily) How often does anyone, including family, friends and others, physically hurt you : never How often does anyone, including family, friends and others, insult or talk down to you: never How often does anyone, including family, friends and others, threaten you with harm: never How often does anyone, including family, friends and others, scream or curse at you: never service: No Meds Home Medications and Allergies Home Medications Medication Instructions Recorded Confirmed Type albuterol sulfate 2.5 mg/3 mL 2.5 mg inhalation Q4H PRN 04/04/22 12/15/22 History (0.083 %) solution for nebulization lactobacillus combination no.4 3 3,000 mmu cells PO DAILY 12/15/22 12/15/22 History billion cell capsule (Probiotic) multivitamin 1 tab PO DAILY 12/15/22 12/15/22 History omega 9-bwv-bal-fish oil 1,000 mg 1 cap PO DAILY 12/15/22 12/15/22 History (120 mg-180 mg) capsule (Fish Oil) Allergies Allergy/AdvReac Type Severity Reaction Status Date / Time Seasonal Allergy Unknown Uncoded 05/15/22 13:30 [place]c Allergy Unknown Uncoded 05/15/22 13:30 Exam Narrative: Exam Narrative: General: Alert and oriented, no acute distress Respiratory: Equal breath rise bilaterally, maintained on room air HEENT: NG tube in place, clamped Abdomen: Soft, mild tenderness to deep palpation left upper quadrant with no guarding or rebound. Nondistended. Const: Vital Signs, click to edit/add: Vital Signs - 24 hr 12/14/22 12:31 12/14/22 18:38 12/14/22 19:03 Temperature 98.1 F 98.2 F 99.2 F Pulse Rate [Left P ulse Oximeter] 80 70 Pulse Rate [Pulse Oximeter] 70 Respiratory Rate 18 20 18 Blood Pressure [Le ft Arm] 131/71 134/74 Blood Pressure [Ri ght Upper Arm] 141/83 H Pulse Oximetry 100 100 99 Oxygen Delivery Me thod Room Air Intubated Room Air Room Air 12/14/22 23:00 12/14/22 23:00 12/15/22 02:46 Temperature 98.9 F 99.1 F Pulse Rate [Left P ulse Oximeter] 71 69 Pulse Rate [Pulse Oximeter] Respiratory Rate 18 18 18 Blood Pressure [Le ft Arm] 141/82 H 143/82 H Blood Pressure [Ri ght Upper Arm] Pulse Oximetry 99 100 Oxygen Delivery Me thod Room Air Room Air 12/15/22 07:00 12/15/22 07:00 Temperature 98.3 F Pulse Rate [Left P ulse Oximeter] 75 75 Pulse Rate [Pulse Oximeter] Respiratory Rate 16 16 Blood Pressure [Le ft Arm] 125/75 Blood Pressure [Ri ght Upper Arm] Pulse Oximetry 98 Oxygen Delivery Me thod Room Air Results Labs Labs: Abnormal lab results 12/14/22 12/15/22 Range/Units 14:50 06:28 WBC 4.47 L (4.50-11.00) K/uL Neut % (Auto) 85.3 H (42.0-72.0) % Lymph % (Auto) 4.9 L 17.0 L (20-44) % [place] % (Auto) 19.2 H (0.0-11.0) % Lymph # (Auto) 0.40 L 0.80 L (0.90-2.90) K/uL Glucose 116 H (60-115) mg/dL C-Reactive Protein 2.1 H 4.0 H (0.5-1.0) mg/dL Diabetes panel 12/14/22 12/15/22 Range/Units 14:50 06:28 Sodium 138 138 (135-149) mmol/L Potassium 4.1 3.9 (3.6-5.1) mmol/L Chloride 101 104 (96-114) mmol/L Carbon Dioxide 25 26 (20-32) mmol/L BUN 16 14 (5-24) mg/dL Creatinine 0.8 0.8 (0.5-1.5) mg/dL Glucose 96 116 H (60-115) mg/dL Calcium 9.2 8.6 (8.4-10.6) mg/dL AST 30 (12-35) U/L ALT 28 (4-50) U/L Alkaline Phosphatase 57 (40-150) U/L Total Protein 7.4 (6.0-8.3) g/dL Albumin 4.4 (3.3-5.0) g/dL Calcium panel 12/14/22 12/15/22 Range/Units 14:50 06:28 Calcium 9.2 8.6 (8.4-10.6) mg/dL Albumin 4.4 (3.3-5.0) g/dL Pituitary panel 12/14/22 12/15/22 Range/Units 14:50 06:28 Sodium 138 138 (135-149) mmol/L Potassium 4.1 3.9 (3.6-5.1) mmol/L Chloride 101 104 (96-114) mmol/L Carbon Dioxide 25 26 (20-32) mmol/L BUN 16 14 (5-24) mg/dL Creatinine 0.8 0.8 (0.5-1.5) mg/dL Glucose 96 116 H (60-115) mg/dL Calcium 9.2 8.6 (8.4-10.6) mg/dL Adrenal panel 12/14/22 12/15/22 Range/Units 14:50 06:28 Sodium 138 138 (135-149) mmol/L Potassium 4.1 3.9 (3.6-5.1) mmol/L Chloride 101 104 (96-114) mmol/L Carbon Dioxide 25 26 (20-32) mmol/L BUN 16 14 (5-24) mg/dL Creatinine 0.8 0.8 (0.5-1.5) mg/dL Glucose 96 116 H (60-115) mg/dL Calcium 9.2 8.6 (8.4-10.6) mg/dL Total Bilirubin 1.1 (0.1-1.5) mg/dL AST 30 (12-35) U/L ALT 28 (4-50) U/L Alkaline Phosphatase 57 (40-150) U/L Total Protein 7.4 (6.0-8.3) g/dL Albumin 4.4 (3.3-5.0) g/dL All other labs normal. Imaging Abdominal x-ray: report reviewed and image reviewed Abdomen CT scan report/results: report reviewed and image reviewed Assessment and Plan Assessment and plan (1) Small bowel obstruction: Problem comment: Small-bowel obstruction likely due to surgical adhesions. Admit for conservative management, and nasogastric suctioning, IV pain medication, IV fluids. Status: Acute Plan Patient is a 42-year-old male, hospital day 2 for partial small-bowel obstruction versus gastroenteritis. A CT scan did demonstrate a transition point at the umbilicus, consistent with an area of adhesion and small-bowel obstruction. An NG tube was placed in the emergency department with initially dark bilious output. Overnight patient has had return of bowel function, his abdominal pain has improved and his NG tube output has decreased in quantity since initial placement. His NG tube was clamped this morning for a period of 4 hours and an abdominal x-ray obtained. Gas was present throughout the colon. Some persistent dilation of small bowel in the left upper quadrant. With 3 clamping of the NG tube minimal, clear output. -NG tube was removed at bedside. -patient okay to have clear liquids, would recommend very slow advancement of diet -encourage ambulation -continue with conservative management. Patient likely has a resolving partial small-bowel obstruction versus gastroenteritis. Please call surgery with any acute clinical changes, questions or concerns.
--- NOTE | 2022-12-15 14:09 | PC.NURSE ---
VSS, RA. NG clamped and pulled this AM- tolerating clear liquid diet. Has had ~500cc. Still with frequent watery stools. Left side abdominal pain/cramping this afternoon-relief w/ ice, Tylenol. Up walking frequently to bathroom. PIV in right AC- LR @ 150cc/hr. Will continue to monitor, follow POC, and keep pt and family updated. Jennifer Vera RN
[2022-12-15 15:00] VITALS: BP 125/74; PULSE 73; RESP 16; TEMP 37.4; O2SAT 100
[2022-12-15] MEDS: HYDROmorphone 0.5 mg/0.5 ml inj IVP (16:45)
--- NOTE | 2022-12-15 18:53 | PC.NURSE ---
End of shift-- Pleasant and cooperative, alert and oriented patient. VSS and pt is afebrile. SPO2 maintained >94% on RA. He c/o some pain in his left flank and his neck/shoulders which he rated as high as 6 out of 10. Pain appears well managed with Toradol and Dilaudid. Pt continues to have small, frequent watery stools. He denied nausea and ate a Jello, grape juice and lemon ice for dinner which he tolerated well. Pt stated that he is urinating in addition to having loose stools. LS CTA. He was up to BR independently this evening and tolerated it well.
[2022-12-15 19:00] VITALS: BP 114/75; PULSE 71; RESP 16; TEMP 36.8; O2SAT 99
[2022-12-15] MEDS: ENOXAPARIN 40 MG/0.4 ML INJ SUBCUT (21:23)
[2022-12-15 23:00] VITALS: BP 135/81; PULSE 81; RESP 16; TEMP 36.8; O2SAT 99
[2022-12-16] MEDS: HYDROmorphone 0.5 mg/0.5 ml inj IVP ×2 (02:00→19:22)
[2022-12-16 03:00] VITALS: BP 130/75; PULSE 72; RESP 16; TEMP 37.2; O2SAT 96
--- NOTE | 2022-12-16 05:36 | PC.NURSE ---
Shift note: Pt was doing well and tolerated clear liquid diet. No abd. distention, N/V observed since the NG tube was removed. However, continue to small amount, frequency watery stool. Asked for Deluded at 0150 for abd pain of 5/10. Continue to receive 5%/ringers at 150/hr. A/o and independent in room. No fever recorded.
[2022-12-16] MEDS: ACETAMINOPHEN 325 MG TABLET 650 MG PO (06:09)
[2022-12-16] MEDS: 5 % DEXTROSE IN LAC RINGER'S 1,000 ML 150 ML IV ×3 (06:13→22:48)
[2022-12-16 06:19] LABS: Lactate* 0.8 mmol/L (0.5-1.9)
[2022-12-16 06:26] LABS: Basophils Absolute Auto 0.02 K/uL (0.00-0.30); Basophils Percent Auto 0.3 % (0.0-3.0); Eosinophils Absolute Auto 0.13 K/uL (0.00-0.50); Hematocrit 44.5 % (37.0-53.0); Hemoglobin* 14.5 gm/dL (13.5-17.5); Immature Granulocytes Abs Auto 0.01 K/uL (0.00-0.30); Immature Granulocytes Pct Auto 0.2 %; Lymphocytes Percent Auto 14.8 % (20-44); Mean Corpuscular HGB Conc 33 gm/dL (32-36); Mean Corpuscular Hemoglobin 29 pg (26-34); Mean Corpuscular Volume 90 fL (80-100); Monocytes Percent Auto 15.9 % (0.0-11.0); Neutrophils Absolute Auto 4.39 K/uL (1.7-7.0); Neutrophils Percent Auto 66.8 % (42.0-72.0); Platelet Count* 251 K/uL (140-440); RDW Coefficient of Variation % 13.9 % (11.5-15.5); Red Blood Count 4.97 m/uL (4.30-5.90); White Blood Count* 6.56 K/uL (4.50-11.00)
[2022-12-16 06:29] LABS: Slide Review Reflex No
[2022-12-16 06:35] LABS: Chloride* 99 mmol/L (96-114)
[2022-12-16 06:36] LABS: Potassium* 4.1 mmol/L (3.6-5.1); Sodium* 136 mmol/L (135-149)
[2022-12-16 06:38] LABS: Creatinine* 0.9 mg/dL (0.5-1.5); Est. Creatinine Clearance* 99.97; Estimated Glomerular Filt Rate 109 ml/min
[2022-12-16 06:39] LABS: Anion Gap 9 mEq/L (7-15); Blood Urea Nitrogen* 10 mg/dL (5-24); Calcium* 8.8 mg/dL (8.4-10.6); Carbon Dioxide* 28 mmol/L (20-32); Glucose* 109 mg/dL (60-115)
[2022-12-16 06:42] LABS: C Reactive Protein* 5.2 mg/dL (0.5-1.0)
[2022-12-16 07:00] VITALS: BP 131/82; PULSE 66; RESP 18; TEMP 36.8; O2SAT 99
[2022-12-16 11:00] VITALS: BP 138/82; PULSE 59; RESP 20; TEMP 36.8; O2SAT 99
--- NOTE | 2022-12-16 11:42 | PM.IMPN1 ---
Progress Note: A&P Assessment and plan (1) Small bowel obstruction: Problem details: -Small-bowel obstruction likely due to surgical adhesions. Admit for conservative management, and nasogastric suctioning, IV pain medication, IV fluids. -12/15: NGT removed, currently tolerating clear liquids without nausea, vomiting or increasing abdominal pain -increasing loose stools. C diff negative. GI pathogens/stool culture ordered Status: Acute (2) Diarrhea: Problem details: -Fairly severe diarrhea prior to admission and now recurrent after admission. Possibly gastroenteritis and a or small-bowel obstruction with gastroenteritis. -as above, GI pathogens/stool culture ordered. C diff negative Status: Acute Plan Continue with clears, ADAT. Further stool studies for comprehensive workup. Curbside discussion with Dr. Lobo, loose stools likely in setting of recent SBO. Time Spent With Patient Total time spent: Total time spent caring for the patient today was 45 minutes. This includes time spent for the visit reviewing the chart, time spent during the visit, time spent after the visit and documentation and planning in coordination of care. Subjective Date Seen: 12/16/22 Interval history: Interval history: NG tube was removed yesterday (12/15). Patient has started on a clear liquid diet. Complaining of increasing loose stools, 4 in the past hour. Cramping abdominal pain prior to stools, otherwise generalized abdominal soreness related to intermittent cramping. No further nausea vomiting. Afebrile, vitals stable. Patient is frustrated having been ill for the past week with no resolve in stools. Normally very active, working out and running most days of the week. Denies recent travel. No known exposures. Denies risk for food-borne illness exposure. No new or recent changes in medication/supplements. 42-year-old male with left hemicolectomy 14 months ago and takedown of colostomy 7 months ago presents with a 5 day history of severe vomiting and diarrhea. Patient had stopped having diarrhea approximately 1 day prior to admission with increasing vomiting and abdominal pain. On admission CT imaging showed he had a small bowel obstruction with a transition point around the umbilicus. On admission NG tube was placed. He has had a moderate amount of NG drainage. Overnight he resumed having diarrhea at least every hour through the night. He has no abdominal pain. Exam Narrative: Exam Narrative: PHYSICAL EXAM General: Conversant, frustrated otherwise NAD HEENT: Normocephalic, atraumatic, sclera white, EOMI, oral mucosa moist Cardiovascular: RRR, S1S2. No pitting edema Pulmonary: CTA bilaterally without rhonchi, rales, expiratory wheezes. No dyspnea Abdominal: Soft, nondistended, NTTP, no guarding Neurological: Alert, answering questions appropriately, cranial nerves intact, no focal findings Extremities: No gross joint deformity or swelling. AROMI. Neurovascularly intact Skin: Warm, dry. Const: Vital Signs, click to edit/add: Vital Signs - 24 hr 12/15/22 15:00 12/15/22 15:00 12/15/22 19:00 Temperature 99.4 F 98.2 F Pulse Rate [Left P ulse Oximeter] 73 73 71 Respiratory Rate 16 16 16 Blood Pressure [Le ft Arm] 125/74 114/75 Pulse Oximetry 100 99 Oxygen Delivery Me thod Room Air Room Air 12/15/22 23:00 12/16/22 03:00 12/16/22 07:00 Temperature 98.2 F 98.9 F 98.2 F Pulse Rate [Left P ulse Oximeter] 81 72 66 Respiratory Rate 16 16 18 Blood Pressure [Le ft Arm] 135/81 130/75 131/82 Pulse Oximetry 99 96 99 Oxygen Delivery Me thod Room Air Room Air Room Air 12/16/22 07:00 Temperature Pulse Rate [Left P ulse Oximeter] 66 Respiratory Rate 18 Blood Pressure [Le ft Arm] Pulse Oximetry Oxygen Delivery Me thod Labs Labs: Laboratory Results - last 24 hr 12/16/22 06:04 WBC 6.56 RBC 4.97 Hgb 14.5 Hct 44.5 MCV 90 MCH 29 MCHC 33 RDW Coeff of Balbir 13.9 Plt Count 251 Neut % (Auto) 66.8 Lymph % (Auto) 14.8 L [place] % (Auto) 15.9 H Eos % (Auto) 2.0 Baso % (Auto) 0.3 Neut # (Auto) 4.39 Lymph # (Auto) 1.00 [place] # (Auto) 1.00 H Eos # (Auto) 0.13 Baso # (Auto) 0.02 Abs Immat Gran (auto) 0.01 Imm/Tot Granulo (auto) 0.2 Sodium 136 Potassium 4.1 Chloride 99 Carbon Dioxide 28 Anion Gap 9 BUN 10 Creatinine 0.9 Estimated Creat Clear 99.97 Estimated GFR 109 Glucose 109 Lactate 0.8 Calcium 8.8 C-Reactive Protein 5.2 H
[2022-12-16 15:00] VITALS: BP 144/79; PULSE 63; RESP 18; RESP 20; TEMP 36.7; O2SAT 100
[2022-12-16 19:00] VITALS: BP 132/83; PULSE 70; RESP 18; TEMP 37.7; O2SAT 97
[2022-12-16] MEDS: SODIUM CHLORIDE 0.9 % (FLUSH) 10 ML SYRINGE 5 ML IVF (19:43)
[2022-12-16] MEDS: ONDANSETRON 2 MG/ML inj 4 MG IVP (19:43)
--- NOTE | 2022-12-16 20:20 | PC.NURSE ---
Nursing Care Hours: [id number] Pt this shift calm and cooperative. Alert and oriented. No c/o pain or N/V. Feeling just unwell, fatigued and abdominal sore from cramping and frequent bowel movements. Up independently in room. On clears but declines broth and jello. Drank Ensure clear, tolerated well. IV patent. Stool sample obtained and sent to lab. VSS.
[2022-12-16] MEDS: ENOXAPARIN 40 MG/0.4 ML INJ SUBCUT (21:16)
[2022-12-16] MEDS: KETOROLAC 15 MG/ML inj IVP (22:42)
[2022-12-16 23:00] VITALS: BP 119/72; PULSE 60; RESP 18; TEMP 37.3; O2SAT 99
[2022-12-17 03:00] VITALS: BP 115/64; PULSE 62; RESP 18; TEMP 36.8; O2SAT 97
[2022-12-17] MEDS: 5 % DEXTROSE IN LAC RINGER'S 1,000 ML 150 ML IV (05:34)
[2022-12-17] MEDS: KETOROLAC 15 MG/ML inj IVP ×2 (05:43→15:23)
--- NOTE | 2022-12-17 05:56 | PC.NURSE ---
Shift note: Pt is alert and oriented. Continue to have frequent loose greenish stool but has reduced. Only 2x since 1900 to this morning. At 0130, pt complained of feeling nauseated. Zofran given which was effective. IV line accidentally removed by pt and new one inserted at 0550. Independent in room. Vitally stable. No fever recorded tonight.
[2022-12-17 06:55] LABS: Lactate* 0.7 mmol/L (0.5-1.9)
[2022-12-17 06:57] LABS: Basophils Absolute Auto 0.02 K/uL (0.00-0.30); Basophils Percent Auto 0.3 % (0.0-3.0); Eosinophils Absolute Auto 0.13 K/uL (0.00-0.50); Hematocrit 38.7 % (37.0-53.0); Hemoglobin* 12.5 gm/dL (13.5-17.5); Immature Granulocytes Abs Auto 0.01 K/uL (0.00-0.30); Immature Granulocytes Pct Auto 0.2 %; Lymphocytes Percent Auto 18.5 % (20-44); Mean Corpuscular HGB Conc 32 gm/dL (32-36); Mean Corpuscular Hemoglobin 29 pg (26-34); Mean Corpuscular Volume 89 fL (80-100); Neutrophils Absolute Auto 4.01 K/uL (1.7-7.0); Platelet Count* 218 K/uL (140-440); RDW Coefficient of Variation % 13.6 % (11.5-15.5); Red Blood Count 4.35 m/uL (4.30-5.90); White Blood Count* 6.37 K/uL (4.50-11.00)
[2022-12-17 07:03] LABS: Slide Review Reflex No
[2022-12-17 07:14] LABS: Chloride* 101 mmol/L (96-114); Sodium* 136 mmol/L (135-149)
[2022-12-17 07:15] LABS: Potassium* 3.9 mmol/L (3.6-5.1)
[2022-12-17 07:17] LABS: Creatinine* 0.9 mg/dL (0.5-1.5); Est. Creatinine Clearance* 99.97; Estimated Glomerular Filt Rate 109 ml/min
[2022-12-17 07:18] LABS: Anion Gap 7 mEq/L (7-15); Blood Urea Nitrogen* 4 mg/dL (5-24); Calcium* 8.3 mg/dL (8.4-10.6); Carbon Dioxide* 28 mmol/L (20-32); Glucose* 111 mg/dL (60-115)
[2022-12-17 07:21] LABS: C Reactive Protein* 5.9 mg/dL (0.5-1.0)
[2022-12-17 08:37] VITALS: BP 126/86; PULSE 50; RESP 18; TEMP 36.6; O2SAT 99
[2022-12-17] MEDS: ACETAMINOPHEN 325 MG TABLET 650 MG PO ×2 (08:45→17:05)
--- NOTE | 2022-12-17 11:35 | PM.IMPN1 ---
Progress Note: A&P Assessment and plan (1) Small bowel obstruction: Problem details: -Small-bowel obstruction likely due to surgical adhesions. Admit for conservative management, and nasogastric suctioning, IV pain medication, IV fluids. -12/15: NGT removed, currently tolerating clear liquids without nausea, vomiting or increasing abdominal pain -increasing loose [id number] -decreased overnight 12/17. C diff negative. GI pathogens/stool culture ordered - pending -discussed with General surgery 12/16 -planned to advance diet this morning 12/17. Patient reported to have significant increased pain in epigastric region after eating eggs with large bowel movement following. Encouraged to resume clear liquid diet. Encouraged ambulation Status: Acute (2) Diarrhea: Problem details: -Fairly severe diarrhea prior to admission and now recurrent after admission. Possibly gastroenteritis and a or small-bowel obstruction with gastroenteritis. -as above, GI pathogens/stool culture ordered-pending. C diff negative -may need outpatient follow-up with colonoscopy and outpatient consult with Dr. Holt Status: Acute Plan Will need to be able to advance diet as tolerated without increasing pain, nausea, vomiting. Awaiting stool cultures/GI pathogens. Time Spent With Patient Total time spent: Total time spent caring for the patient today was 45 minutes. This includes time spent for the visit reviewing the chart, time spent during the visit, time spent after the visit and documentation and planning in coordination of care. Subjective Date Seen: 12/17/22 Interval history: Patient reports feeling a little better this morning. Only 2 large loose stools overnight. He tells me the volume is about the same but the frequency has decreased. Continues to have cramping pain prior to stools. Has only had clears and tolerating these thus far. Exam Narrative: Exam Narrative: PHYSICAL EXAM General: Pleasant, conversant, NAD Cardiovascular: RRR, S1S2. No pitting edema Pulmonary: CTA bilaterally without rhonchi, rales, expiratory wheezes. No dyspnea Abdominal: Soft, nondistended, NTTP, no guarding Neurological: Alert, answering questions appropriately, cranial nerves intact, no focal findings Extremities: No gross joint deformity or swelling. AROMI. Neurovascularly intact Skin: Warm, dry. Const: Vital Signs, click to edit/add: Vital Signs - 24 hr 12/16/22 15:00 12/16/22 15:00 12/16/22 19:00 Temperature 98.1 F 99.8 F H Pulse Rate [Left P ulse Oximeter] 63 63 70 Respiratory Rate 20 18 18 Blood Pressure [Le ft Arm] 144/79 H 132/83 Pulse Oximetry 100 97 Oxygen Delivery Me thod Room Air Room Air 12/16/22 23:00 12/17/22 03:00 12/17/22 08:37 Temperature 99.1 F 98.3 F 97.8 F Pulse Rate [Left P ulse Oximeter] 60 62 50 L Respiratory Rate 18 18 18 Blood Pressure [Le ft Arm] 119/72 115/64 126/86 Pulse Oximetry 99 97 99 Oxygen Delivery Me thod Room Air Room Air Room Air Labs Labs: Laboratory Results - last 24 hr 12/17/22 06:23 WBC 6.37 RBC 4.35 Hgb 12.5 L Hct 38.7 MCV 89 MCH 29 MCHC 32 RDW Coeff of Balbir 13.6 Plt Count 218 Neut % (Auto) 63.0 Lymph % (Auto) 18.5 L [place] % (Auto) 16.0 H Eos % (Auto) 2.0 Baso % (Auto) 0.3 Neut # (Auto) 4.01 Lymph # (Auto) 1.20 [place] # (Auto) 1.00 H Eos # (Auto) 0.13 Baso # (Auto) 0.02 Abs Immat Gran (auto) 0.01 Imm/Tot Granulo (auto) 0.2 Sodium 136 Potassium 3.9 Chloride 101 Carbon Dioxide 28 Anion Gap 7 BUN 4 L Creatinine 0.9 Estimated Creat Clear 99.97 Estimated GFR 109 Glucose 111 Lactate 0.7 Calcium 8.3 L C-Reactive Protein 5.9 H
[2022-12-17 15:00] VITALS: BP 122/95; PULSE 56; RESP 18; TEMP 36.8; O2SAT 98
[2022-12-17] MEDS: LACTATED RINGERS 1000 ML 1,000 ML 100 ML IV (15:30)
--- NOTE | 2022-12-17 15:33 | CRLHL7_ITS ---
For Patients: As a result of the Century Cures Act, medical imaging exams and procedure reports are released immediately into your electronic medical record. You may view this report before your referring provider. If you have questions, please contact your health care provider. Indication: Recent small-bowel obstruction Technique: Frontal view abdomen Comparison: December 15, 2022 Findings/Impression: : Interval removal of gastric drainage tube. Interval resolution of dilated small bowel loops. Nonspecific bowel gas pattern without evidence for free air or pneumatosis. The lung bases are clear. Osseous structures intact. Dictated by Amy Doran MD @ 12/18/2022 12:48:55 AM (Electronically Signed)
[2022-12-17] MEDS: ONDANSETRON 2 MG/ML inj 4 MG IVP (17:05)
[2022-12-17] MEDS: HYDROmorphone 0.5 mg/0.5 ml inj IVP ×2 (17:05→22:18)
--- NOTE | 2022-12-17 17:57 | PM.GSPN ---
Subjective Subjective Date Seen: 12/17/22 Interval history: I was called to see Justen again today as he has not been able to tolerate a diet. I reviewed his history with him. He has a history of a colectomy with end colostomy and then colostomy takedown, last done in April. Since then he had been doing well. Last Friday he developed vomiting and diarrhea. He came in to the ER on because persistent symptoms. He was given Toradol and Zofran sent home. On Friday he vomited all night and came into the emergency department. There workup revealed proximally dilated small bowel with a transition point near the umbilicus concerning for bowel obstruction. He has continued to have diarrhea throughout his hospital stay. This has been perfuse. He has gone multiple times a day every day. He has been tolerating clear liquids and has not vomited but he has had nausea. He states that the nausea comes when he has cramping. Today's diet was advanced to regular and he ate eggs. After the eggs he noticed and egg size mass on his abdominal wall and 40 minutes later he developed profuse diarrhea again. His diet was put back to clear liquids. He has not had any abdominal pain this hospital stay, only cramping before diarrhea. He was checked for C diff which was negative. Remainder stool cultures are pending. He is frustrated because he has not gotten better. Exam Narrative: Exam Narrative: General: No acute distress CV: Regular rate Respiratory: Breathing nonlabored on room air Abdomen: Scars consistent with surgical history. In his upper abdomen he does have what feels like a small fascial defect. No obvious hernia with Valsalva. Abdomen is nontender nondistended. Const: Vital Signs, click to edit/add: Vital Signs - 24 hr 12/16/22 19:00 12/16/22 23:00 12/17/22 03:00 Temperature 99.8 F H 99.1 F 98.3 F Pulse Rate [Left P ulse Oximeter] 70 60 62 Respiratory Rate 18 18 18 Blood Pressure [Le ft Arm] 132/83 119/72 115/64 Pulse Oximetry 97 99 97 Oxygen Delivery Me thod Room Air Room Air Room Air 12/17/22 08:37 12/17/22 15:00 Temperature 97.8 F 98.3 F Pulse Rate [Left P ulse Oximeter] 50 L 56 L Respiratory Rate 18 18 Blood Pressure [Le ft Arm] 126/86 122/95 H Pulse Oximetry 99 98 Oxygen Delivery Me thod Room Air Room Air Labs/Imaging Labs Labs: White blood cell count remains normal. CRP is elevated at 5.9 this is up slightly from yesterday as well as the day before. Imaging Imaging: Imaging reviewed. CT scan does show likely a small supraumbilical fascial defect. Small bowel is markedly dilated on CT scan. Serial x-rays reviewed. Radiology read from today is pending, however today's x-ray does appear to show less distended small bowel with gas in the colon. Progress Note: A&P Assessment and plan (1) Gastroenteritis: Status: Acute (2) Diarrhea: Problem details: -Fairly severe diarrhea prior to admission and now recurrent after admission. Possibly gastroenteritis and a or small-bowel obstruction with gastroenteritis. -as above, GI pathogens/stool culture ordered-pending. C diff negative -may need outpatient follow-up with colonoscopy and outpatient consult with Dr. Holt Status: Acute Plan The patient is a 42-year-old male with diarrhea and CT findings concerning for bowel obstruction. I spoke to the patient and his this evening. Certainly he has not seemed obstructed since he has had diarrhea throughout this hospitalization and last week. Furthermore, eating provokes a bowel movement which would argue against obstruction. Bowel gas pattern appears better on imaging today. Could consider CT scan with oral contrast tomorrow to definitively rule out obstruction. Consider treatment for infectious colitis empirically given symptoms, particularly of food provoking cramping and diarrhea.
--- NOTE | 2022-12-17 18:20 | PC.NURSE ---
shift note: pt up indept in huerta x4 today. pt states he had notable distention above umbilicus 30 mins after eating eggs this a.m. Pt also stated he had increased cramping and loose foamy green stools. BS hyperactive and abd tender to palpation. small distention noted above umbilicus. Pt had 8 loose watery stools in 7 hours. Leydi STRANGE updated on pt's condition. Orders to change diet back to clrs and LR started. Ls clr. vss stable. pt medicated for 4-5/10 abd cramping with toradol, dilaudid, tylenol with relief of pain to 2/10. Pt offered aqua k pad to help with cramping. pt refused.
[2022-12-17] MEDS: LACTOBACILLUS ACIDOPHILUS 1 TABLET 2 TAB PO (18:47)
[2022-12-17 18:59] LABS: Thyroid Stimulating Hormone* 0.708 uIU/mL (0.270-4.20)
[2022-12-17 19:00] VITALS: BP 131/87; PULSE 52; RESP 18; TEMP 36.9; O2SAT 100
[2022-12-17] MEDS: ENOXAPARIN 40 MG/0.4 ML INJ SUBCUT (21:18)
[2022-12-17] MEDS: SODIUM CHLORIDE 0.9 % (FLUSH) 10 ML SYRINGE 5 ML IVF (21:18)
[2022-12-17 23:00] VITALS: PULSE 51; PULSE 52; RESP 18; TEMP 36.9; O2SAT 100
[2022-12-18] MEDS: LACTATED RINGERS 1000 ML 1,000 ML 100 ML IV (01:25)
[2022-12-18] MEDS: KETOROLAC 15 MG/ML inj IVP ×2 (01:33→11:19)
[2022-12-18 02:20] VITALS: BP 108/65; PULSE 54; RESP 16; TEMP 36.7; O2SAT 100
[2022-12-18 03:00] VITALS: PULSE 49; RESP 18; TEMP 37; O2SAT 100
--- NOTE | 2022-12-18 06:09 | PC.NURSE ---
Addendum entered by Gloria Dee RN 12/18/22 07:25: Edit:two loose stools throughout the night, last one at 2014. Multiple independent trips to the restroom, remainder were voids. Original Note: End of Shift: Pt appropriate and cooperative throughout shift, independent in room, remained AO. Pt reported pain in abdomen radiating to back at 7/10 during the night, resolved with IV dilauded. Reported headache later in the night, improved with IV toradol. Multiple loose BM's throughout the night, continent. LR running at 100, IV remains patent and intact. Bowel sounds present, LS CTAB.
[2022-12-18] MEDS: ACETAMINOPHEN 325 MG TABLET 650 MG PO ×3 (06:29→21:24)
[2022-12-18 06:31] LABS: Basophils Absolute Auto 0.02 K/uL (0.00-0.30); Basophils Percent Auto 0.4 % (0.0-3.0); Eosinophils Absolute Auto 0.18 K/uL (0.00-0.50); Eosinophils Percent Auto 3.2 % (0.0-7.0); Hematocrit 39.4 % (37.0-53.0); Hemoglobin* 12.9 gm/dL (13.5-17.5); Immature Granulocytes Abs Auto 0.01 K/uL (0.00-0.30); Immature Granulocytes Pct Auto 0.2 %; Lymphocytes Absolute Auto 1.74 K/uL (0.90-2.90); Lymphocytes Percent Auto 30.9 % (20-44); Mean Corpuscular HGB Conc 33 gm/dL (32-36); Mean Corpuscular Hemoglobin 29 pg (26-34); Mean Corpuscular Volume 88 fL (80-100); Monocytes Percent Auto 9.9 % (0.0-11.0); Neutrophils Absolute Auto 3.13 K/uL (1.7-7.0); Neutrophils Percent Auto 55.4 % (42.0-72.0); Platelet Count* 216 K/uL (140-440); RDW Coefficient of Variation % 13.4 % (11.5-15.5); Red Blood Count 4.46 m/uL (4.30-5.90); White Blood Count* 5.64 K/uL (4.50-11.00)
[2022-12-18 06:35] LABS: Slide Review Reflex No
[2022-12-18 06:44] LABS: Chloride* 102 mmol/L (96-114)
[2022-12-18 06:45] LABS: Potassium* 3.6 mmol/L (3.6-5.1); Sodium* 138 mmol/L (135-149)
[2022-12-18 06:47] LABS: Creatinine* 0.9 mg/dL (0.5-1.5); Est. Creatinine Clearance* 99.97; Estimated Glomerular Filt Rate 109 ml/min
[2022-12-18 06:48] LABS: Anion Gap 8 mEq/L (7-15); Blood Urea Nitrogen* 6 mg/dL (5-24); Calcium* 8.5 mg/dL (8.4-10.6); Carbon Dioxide* 28 mmol/L (20-32); Glucose* 75 mg/dL (60-115)
[2022-12-18 07:30] VITALS: BP 111/66; PULSE 49; RESP 18; TEMP 36.9; O2SAT 98
[2022-12-18] MEDS: LACTOBACILLUS ACIDOPHILUS 1 TABLET 2 TAB PO ×3 (09:31→18:52)
[2022-12-18 11:00] VITALS: BP 134/74; PULSE 70; RESP 18; TEMP 37.1; O2SAT 98
[2022-12-18] MEDS: LOPERAMIDE HCL 2 MG CAPSULE 4 MG PO (11:07)
[2022-12-18] MEDS: LACTATED RINGERS 1000 ML 1,000 ML 75 ML IV ×2 (11:09→22:04)
--- NOTE | 2022-12-18 12:49 | P.IMPN_ITS ---
Progress Note: A&P Assessment and plan (1) Diarrhea: Problem details: -Fairly severe diarrhea prior to admission (12/10/22) and now recurrent after admission. Possibly gastroenteritis and/or small-bowel obstruction with gastroenteritis. -GI pathogens/stool culture ordered-pending (4-5 days for results). C diff negative on 12/14, repeat collection on 12/18. -12/18: Discussed findings thus far and hospital course with Dr. Holt, GI. Discussed treatments including Cipro and prednisone though no evidence for fulminant bacterial infection or colitis. Recommends starting with 2 tablets of Imodium and advancing diet with lunch. Continue with p.r.n. Imodium and diet as tolerated. Reassess in a.m.. Gentle IV hydration restarted with LR. -recommend outpatient follow-up with colonoscopy and outpatient consult with GI Status: Acute (2) Small bowel obstruction: Problem details: -Small-bowel obstruction suspected likely due to surgical adhesions. Admit for conservative management, and nasogastric suctioning, IV pain medication, IV fluids. -12/15: NGT removed, tolerated clear liquids without nausea, vomiting or increasing abdominal pain -12/16: increasing loose stools-decreased overnight 12/17. C diff negative. GI pathogens/stool culture ordered - pending/send out (4-5 days for results) -General surgery following. Repeat abdominal film on 12/17 without new significant findings. -12/17: diet advanced. Patient reported to have significant increased pain in epigastric region after eating eggs with large bowel movement following. Encouraged to resume clear liquid diet. Encouraged ambulation. -12/18: As above. Status: Acute Plan Will need to be able to advance diet as tolerated without increasing pain, nausea, vomiting. Awaiting stool cultures/GI pathogens. Further outpatient workup recommended Time Spent With Patient Total time spent: Total time spent caring for the patient today was 45 minutes. This includes time spent for the visit reviewing the chart, time spent during the visit, time spent after the visit and documentation and planning in coordination of care. Subjective Date Seen: 12/18/22 Interval history: Patient reports increased stool volume again yesterday after eating solids. Understandably frustrated. Less discomfort this morning. No nausea or vomiting. Feels like he cannot take in anything other than water without causing worsening bowel movements. Reviewed again, no recent exposures, antibiotic use, travel. No previous history of celiac or lactose intolerance. Has had a calculated, purposeful weight loss over the last several months secondary to increased protein intake and regular cardiovascular and weightlifting exercise. No alcohol use. Exam Narrative: Exam Narrative: General: Pleasant, conversant, NAD CV: Regular rate Respiratory: No dyspnea on room air Const: Vital Signs, click to edit/add: Vital Signs - 24 hr 12/17/22 15:00 12/17/22 15:00 12/17/22 19:00 Temperature 98.3 F 98.4 F Pulse Rate [Left P ulse Oximeter] 56 L 56 L 52 L Respiratory Rate 18 18 18 Blood Pressure [Le ft Arm] 122/95 H 131/87 Pulse Oximetry 98 100 Oxygen Delivery Me thod Room Air Room Air 12/17/22 23:00 12/17/22 23:00 12/18/22 03:00 Temperature 98.4 F 98.6 F Pulse Rate [Left P ulse Oximeter] 51 L 52 L 49 L Respiratory Rate 18 18 18 Blood Pressure [Le ft Arm] Pulse Oximetry 100 100 Oxygen Delivery Me thod Room Air Room Air Labs Labs: Laboratory Results - last 24 hr 12/17/22 12/17/22 12/18/22 06:23 17:56 06:02 WBC 5.64 RBC 4.46 Hgb 12.9 L Hct 39.4 MCV 88 MCH 29 MCHC 33 RDW Coeff of Balbir 13.4 Plt Count 216 Neut % (Auto) 55.4 Lymph % (Auto) 30.9 Mcdonough % (Auto) 9.9 Eos % (Auto) 3.2 Baso % (Auto) 0.4 Neut # (Auto) 3.13 Lymph # (Auto) 1.74 Mcdonough # (Auto) 0.60 Eos # (Auto) 0.18 Baso # (Auto) 0.02 Abs Immat Gran (auto) 0.01 Imm/Tot Granulo (auto) 0.2 Sodium 138 Potassium 3.6 Chloride 102 Carbon Dioxide 28 Anion Gap 8 BUN 6 Creatinine 0.9 Estimated Creat Clear 99.97 Estimated GFR 109 Glucose 75 Calcium 8.5 TSH 0.708 Lab Acknowledgement Test Added
[2022-12-18] MEDS: HYDROmorphone 0.5 mg/0.5 ml inj IVP ×2 (13:29→20:19)
--- NOTE | 2022-12-18 13:53 | PM.GSPN ---
Subjective Subjective Date Seen: 12/18/22 Interval history: Justen was feeling better today. Diarrhea has decreased slightly. He did take Imodium and has not gone to the bathroom since he had lunch. Denies nausea, vomiting. He has no abdominal pain. Exam Narrative: Exam Narrative: General: No acute distress CV: Regular rate respiratory: Breathing nonlabored on room air abdomen: Soft, nontender. Nondistended. Const: Vital Signs, click to edit/add: Vital Signs - 24 hr 12/17/22 15:00 12/17/22 15:00 12/17/22 19:00 Temperature 98.3 F 98.4 F Pulse Rate [Left P ulse Oximeter] 56 L 56 L 52 L Respiratory Rate 18 18 18 Blood Pressure [Le ft Arm] 122/95 H 131/87 Pulse Oximetry 98 100 Oxygen Delivery Me thod Room Air Room Air 12/17/22 23:00 12/17/22 23:00 12/18/22 03:00 Temperature 98.4 F 98.6 F Pulse Rate [Left P ulse Oximeter] 51 L 52 L 49 L Respiratory Rate 18 18 18 Blood Pressure [Le ft Arm] Pulse Oximetry 100 100 Oxygen Delivery Me thod Room Air Room Air Labs/Imaging Imaging Imaging: Abdominal x-ray from yesterday shows nonspecific bowel gas pattern. Progress Note: A&P Assessment and plan (1) Gastroenteritis: Status: Acute (2) Diarrhea: Problem details: -Fairly severe diarrhea prior to admission (12/10/22) and now recurrent after admission. Possibly gastroenteritis and/or small-bowel obstruction with gastroenteritis. -GI pathogens/stool culture ordered-pending (4-5 days for results). C diff negative on 12/14, repeat collection on 12/18. -12/18: Discussed findings thus far and hospital course with Dr. Holt, GI. Discussed treatments including Cipro and prednisone though no evidence for fulminant bacterial infection or colitis. Recommends starting with 2 tablets of Imodium and advancing diet with lunch. Continue with p.r.n. Imodium and diet as tolerated. Reassess in a.m.. Gentle IV hydration restarted with LR. -recommend outpatient follow-up with colonoscopy and outpatient consult with GI Status: Acute Plan the patient is a 42-year-old male with CT findings concerning for bowel obstruction, however has always had antegrade bowel function. Picture clinically appears most consistent with gastroenteritis. Diarrhea has improved today and Imodium has been added which has further improved this. Still awaiting stool cultures. Case discussed with gastroenterology. I did not feel and. Antibiotics or steroids was necessary get cultures back. - I instructed patient to use Imodium as sparingly as he is able since there was initially the question of a bowel obstruction bidet which will help. He may be discharged home when he is tolerating regular diet
[2022-12-18 15:00] VITALS: BP 154/82; PULSE 78; RESP 18; TEMP 36.6; O2SAT 99
[2022-12-18 19:00] VITALS: BP 134/86; PULSE 49; RESP 16; TEMP 36.7; O2SAT 100
--- NOTE | 2022-12-18 19:47 | PC.NURSE ---
shift note: pt up indept in room. pt had increased cramping after meals. pt medicated for cramping with relief. Pt had AYALA this a.m and was medicated with relief. BS hyperactive. pt had 2 loose stools this a.m. IV patent.
[2022-12-18] MEDS: SODIUM CHLORIDE 0.9 % (FLUSH) 10 ML SYRINGE 5 ML IVF ×2 (20:20→22:05)
[2022-12-18] MEDS: ENOXAPARIN 40 MG/0.4 ML INJ SUBCUT (22:04)
[2022-12-19] MEDS: KETOROLAC 15 MG/ML inj IVP (02:19)
[2022-12-19 02:20] VITALS: BP 108/65; PULSE 54; RESP 16; TEMP 36.7; O2SAT 100
[2022-12-19 06:15] VITALS: BP 133/78; PULSE 51; RESP 16; TEMP 36.8; O2SAT 100
[2022-12-19] MEDS: ACETAMINOPHEN 325 MG TABLET 650 MG PO (06:19)
[2022-12-19 06:21] LABS: Basophils Absolute Auto 0.03 K/uL (0.00-0.30); Basophils Percent Auto 0.5 % (0.0-3.0); Eosinophils Percent Auto 3.2 % (0.0-7.0); Hematocrit 37.6 % (37.0-53.0); Hemoglobin* 12.6 gm/dL (13.5-17.5); Immature Granulocytes Abs Auto 0.02 K/uL (0.00-0.30); Immature Granulocytes Pct Auto 0.3 %; Lymphocytes Absolute Auto 2.13 K/uL (0.90-2.90); Lymphocytes Percent Auto 33.6 % (20-44); Mean Corpuscular HGB Conc 34 gm/dL (32-36); Mean Corpuscular Hemoglobin 29 pg (26-34); Mean Corpuscular Volume 87 fL (80-100); Monocytes Percent Auto 8.8 % (0.0-11.0); Neutrophils Absolute Auto 3.39 K/uL (1.7-7.0); Neutrophils Percent Auto 53.6 % (42.0-72.0); Platelet Count* 237 K/uL (140-440); RDW Coefficient of Variation % 13.1 % (11.5-15.5); Red Blood Count 4.32 m/uL (4.30-5.90); White Blood Count* 6.33 K/uL (4.50-11.00)
[2022-12-19 06:33] LABS: Chloride* 100 mmol/L (96-114); Sodium* 139 mmol/L (135-149)
[2022-12-19 06:34] LABS: Potassium* 3.4 mmol/L (3.6-5.1)
[2022-12-19 06:36] LABS: Anion Gap 13 mEq/L (7-15); Blood Urea Nitrogen* 6 mg/dL (5-24); Carbon Dioxide* 26 mmol/L (20-32); Creatinine* 0.9 mg/dL (0.5-1.5); Est. Creatinine Clearance* 99.97; Estimated Glomerular Filt Rate 109 ml/min
[2022-12-19 06:37] LABS: Calcium* 8.3 mg/dL (8.4-10.6); Glucose* 75 mg/dL (60-115)
[2022-12-19 07:31] LABS: Slide Review Reflex Yes
[2022-12-19 07:32] LABS: Slide Review Acceptable Review (Acceptable)
[2022-12-19 08:52] VITALS: BP 135/96; PULSE 69; RESP 18; TEMP 36.9; O2SAT 99
--- NOTE | 2022-12-19 09:13 | PC.NURSE ---
Pt is alert and oriented x3. Pt reports headache 8/, managed with PRN medications, and caffeine. Pt denies SOB, chest pain, and N/V. Pt is up ad jerri in room. Pt slept throughout most of night. Night uneventful.
--- NOTE | 2022-12-19 10:08 | P.DS_ITS ---
DS: Providers Provider Date Seen: 12/19/22 Date of admission: 12/14/22 19:03 Primary care physician: Jevon Brothers MD Admitting Clinician: Nayan Candelaria MD Consults: 12/17/22 14:08 Consult to Physician [CONS] Routine Comment: Consulting Provider: Saumya Lobo Has provider been notified: Yes Attending Physician on discharge: Leydi Ontiveros [facility], PAJaisonC [place] Hospitalist Date of Discharge: 12/19/22 DS: Diagnosis Discharge Diagnosis (1) Diarrhea: Status: Acute Problem details: -Fairly severe diarrhea prior to admission (12/10/22) and now recurrent after admission. Possibly gastroenteritis and/or small-bowel obstruction with gastroenteritis. -GI pathogens/stool culture ordered-pending (4-5 days for results). C diff negative on 12/14, repeat collection on 12/18. -12/18: Discussed findings thus far and hospital course with Dr. Holt GI. Discussed treatments including Cipro and prednisone though no evidence for fulminant bacterial infection or colitis. Recommends starting with 2 tablets of Imodium and advancing diet with lunch. Continue with p.r.n. Imodium and diet as tolerated. Reassess in a.m.. Gentle IV hydration restarted with LR. -12/19 only 1 bowel movement in past 24 hours following 4 mg dose of Imodium. Tolerating advanced diet without increasing abdominal pain, nausea, vomiting. Reports passing gas this morning. -safe for discharge at this point as able to tolerate diet and stools currently managed. Discussed risks for recurrent diarrhea or small-bowel obstruction. Will advance diet cautiously, minimizing use of Imodium -GI pathogen panel still pending at time of discharge -patient is being set up with outpatient follow-up at [facility]. CLARK has been signed for release of hospital records to the clinic. (2) Small bowel obstruction: Status: Acute Problem details: -while symptomatology does not fit with typical small bowel obstruction, CT findings consistent with an obstruction. -followed by General Surgery while hospitalized. May need further follow up outpatient if symptoms recur. Recommend CT abdomen/pelvis with oral contrast if recurs. DS: Summary Hospital Course Hospital Course: [age] year old male past medical history significant for obesity with structured weight loss with diet and exercise, GERD, asthma, hyperlipidemia was admitted to the medical floor for unrelenting diarrhea and a CT scan which showed concern for small bowel obstruction. Course of care and details as noted above. Remainder of chronic medical comorbidities were monitored and managed with home medications. Patient to follow-up with PCP as well as [facility] for further work up and management. Status at Discharge Overall status at discharge: patient is back to baseline Time Spent with Patient Time attestation: Total time spent providing and/or coordinating discharge services: Time spent: Greater than 30 minutes Exam Narrative: Exam Narrative: General: Pleasant, conversant, NAD CV: Regular rate Respiratory: No dyspnea on room air Const: Vital Signs, click to edit/add: Vital Signs - 24 hr 12/18/22 11:00 12/18/22 15:00 12/18/22 19:00 Temperature 98.7 F 97.9 F 98.1 F Pulse Rate [Left P ulse Oximeter] 70 78 49 L Respiratory Rate 18 18 16 Blood Pressure [Le ft Arm] 134/74 154/82 H 134/86 Pulse Oximetry 98 99 100 Oxygen Delivery Me thod Room Air Room Air Room Air 12/19/22 02:20 12/19/22 02:20 12/19/22 06:15 Temperature 98.1 F 98.3 F Pulse Rate [Left P ulse Oximeter] 54 L 54 L 51 L Respiratory Rate 16 16 16 Blood Pressure [Le ft Arm] 108/65 133/78 Pulse Oximetry 100 100 Oxygen Delivery Me thod Room Air Room Air 12/19/22 08:52 Temperature 98.4 F Pulse Rate [Left P ulse Oximeter] 69 Respiratory Rate 18 Blood Pressure [Le ft Arm] 135/96 H Pulse Oximetry 99 Oxygen Delivery Me thod Room Air DS: Data Data Completed and Pending Completed studies during hospitalization: Procedures Bypass Transverse Colon to Cutaneous, Open Approach (10/05/21) Excision of Large Intestine, Percutaneous Endoscopic Approach (04/30/22) Release Large Intestine, Percutaneous Endoscopic Approach (04/30/22) Reposition Sigmoid Colon, Percutaneous Endoscopic Approach (04/30/22) Resection of Left Large Intestine, Open Approach (10/05/21) Pending studies at discharge: GI pathogen panel Labs on day of discharge: Labs from last 24 hours 12/19/22 05:58 WBC 6.33 RBC 4.32 Hgb 12.6 L Hct 37.6 MCV 87 MCH 29 MCHC 34 RDW Coeff of Balbir 13.1 Plt Count 237 Neut % (Auto) 53.6 Lymph % (Auto) 33.6 Caroline % (Auto) 8.8 Eos % (Auto) 3.2 Baso % (Auto) 0.5 Neut # (Auto) 3.39 Lymph # (Auto) 2.13 Caroline # (Auto) 0.60 Eos # (Auto) 0.20 Baso # (Auto) 0.03 Abs Immat Gran (auto) 0.02 Imm/Tot Granulo (auto) 0.3 Diff Slide Review Acceptable Review Sodium 139 Potassium 3.4 L Chloride 100 Carbon Dioxide 26 Anion Gap 13 BUN 6 Creatinine 0.9 Estimated Creat Clear 99.97 Estimated GFR 109 Glucose 75 Calcium 8.3 L Discharge Plan Discharge Disposition: Home, Self-Care Date of Admission: 12/14/22 19:03 Attending Provider on Discharge: Leydi Ontiveros Consulting Providers: Saumya Lobo Primary Care Provider: Jevon Brothers Condition: Stable Anticipated Discharge Date/Time: 12/19/22 09:57 Discharge Medications: Continued albuterol sulfate 2.5 mg /3 mL (0.083 %) solution for nebulization 2.5 mg inhalation Q4H PRN multivitamin Tablet 1 tab PO DAILY omega 3-mjc-pvi-fish oil [Fish Oil] 1,000 mg (120 mg-180 mg) capsule 1 cap PO DAILY Probiotic 3 billion cell capsule 3,000 mmu cells PO DAILY Rx Instructions: administer with a meal albuterol sulfate [Ventolin HFA] 90 mcg/actuation HFA aerosol inhaler 2 inh inhalation Q4H PRN (Reason: shortness of breath or wheezing) Qty: 6.7 11RF testosterone cypionate 200 mg/mL oil 200 mg IM Q14D Qty: 10 1RF Discharge Orders: Discharge Order (Routine); Ordered 12/19/22 Ordered By: Leydi Ontiveros Patient Education: Acute Diarrhea (GEN), Bowel Obstruction (GEN) Additional Instructions: You will need further outpatient work up with Gastroenterology. Continue to slowly advance your diet as tolerated. Avoid using too much Imodium. Stay hydrated. Activity Level: Activity as Tolerated Discharge Diet: Regular Diet Detail: advance as tolerated. [place]. Follow Up Appointments: Horacio Awad MBBS [Referring] - 12/26/22 (Post hospital eval and management. Diarrhea, questionable SBO. Patient will have to make this appointment.) Jevon Brothers MD [Primary Care Provider] - 12/23/22 8:15 am ([facility] for post hospital follow up for diarrhea, SBO. Will need outpatient follow up with GI as well) Forms: [facility] Info Instructions Discharge Comments: You have signed a release of information for [facility] so that we may release our current records of your hospital stay to their group.
--- NOTE | 2022-12-19 10:28 | PM.GSPN ---
Subjective Subjective Date Seen: 12/19/22 Interval history: Patient had 4 mg of Imodium yesterday and had not had a bowel movement since, however he is passing gas today. He is eating without nausea. No abdominal pain Exam Narrative: Exam Narrative: General: No acute distress Const: Vital Signs, click to edit/add: Vital Signs - 24 hr 12/18/22 11:00 12/18/22 15:00 12/18/22 19:00 Temperature 98.7 F 97.9 F 98.1 F Pulse Rate [Left P ulse Oximeter] 70 78 49 L Respiratory Rate 18 18 16 Blood Pressure [Le ft Arm] 134/74 154/82 H 134/86 Pulse Oximetry 98 99 100 Oxygen Delivery Me thod Room Air Room Air Room Air 12/19/22 02:20 12/19/22 02:20 12/19/22 06:15 Temperature 98.1 F 98.3 F Pulse Rate [Left P ulse Oximeter] 54 L 54 L 51 L Respiratory Rate 16 16 16 Blood Pressure [Le ft Arm] 108/65 133/78 Pulse Oximetry 100 100 Oxygen Delivery Me thod Room Air Room Air 12/19/22 08:52 Temperature 98.4 F Pulse Rate [Left P ulse Oximeter] 69 Respiratory Rate 18 Blood Pressure [Le ft Arm] 135/96 H Pulse Oximetry 99 Oxygen Delivery Me thod Room Air Progress Note: A&P Assessment and plan (1) Gastroenteritis: Status: Acute (2) Small bowel obstruction: Status: Acute Plan Patient presented with nausea and diarrhea and CT showed likely small-bowel obstruction, however patient always had loose stools throughout this, worsened by eating which argues against bowel obstruction, and more towards enteritis. He has had persistent loose stools which finally improved after 1 dose of Imodium. He has not had any nausea with eating since. No abdominal pain. -plan is to discharge home today. I did tell him to use Imodium cautiously. If he develops nausea vomiting worsening abdominal pain he should return to be seen. - I would recommend CT scan with oral contrast if he were to return to the ER.
--- NOTE | 2022-12-19 12:06 | PC.NURSE ---
shift note: vss stable.pt rating AYALA 04/12. pt states he's passing flatus but hasn't had BM since a.m 12/18/22. IV dc'd intact. Reviewed dc instructions and copies sent with pt at nd. Belongings reviewed and sent with pt at nd.
[2022-12-21 09:19] LABS: Adenovirus PCR Not Detected; Astrovirus PCR Not Detected; Campylobacter PCR Not Detected; Cryptosporidium PCR Not Detected; Cyclospora cayetanensis PCR Not Detected; Entamoeba histolytica PCR Not Detected; Enteroaggregative E coli PCR Not Detected; Enteropathogenic E coli PCR Not Detected; Enterotoxigenic E coli PCR Not Detected; Giardia lamblia PCR Not Detected; Norovirus Gi/GII PCR Not Detected; Plesiomonas shig PCR Not Detected; Rotavirus A PCR Not Detected; Salmonella PCR Not Detected; Sapovirus PCR Not Detected; Shiga toxin E coli PCR Not Detected; Shigella/Enteroinvasive E coli Not Detected; Vibrio PCR Not Detected; Vibrio cholerae PCR Not Detected; Yersinia enterocolitica PCR Not Detected
== END 2022-12-19 12:11 | disposition home or self-care (01) | DRG 390 ==
LOC: ED 16:57 → MEDSURG 17:44
PROVIDERS: Family Medicine; Physician Assistant; Admitting Provider Family Medicine; Emergency Provider Family Medicine; PCP Family Medicine; Visit Provider Family Medicine
DX: K56.50 Intestinal adhesions [bands], unspecified as to partial versus complete obstruction (principal); K52.9 Noninfective gastroenteritis and colitis, unspecified; R11.2 Nausea with vomiting, unspecified; K21.9 Gastro-esophageal reflux disease without esophagitis; J45.909 Unspecified asthma, uncomplicated; E78.5 Hyperlipidemia, unspecified; G47.30 Sleep apnea, unspecified; E66.9 Obesity, unspecified
CPT/HCPCS: 36415; 74018; 74019; 74177; 80048; 80076; 83605; 83690; 83735; 84443; 85025; 86140; 87045; 87046; 87427; 87493; 87505; 99284; 99285; A9270; J1170; J1650; J1885; J2405; J7030; J7120; Q9967

== ENCOUNTER 2022-12-23 08:43 | Outpatient (CLI) | payer OTHER, SELFPAY | END 2022-12-23 08:44 | disposition home or self-care (01) | LOC: NFLDREF 12-26 02:07 | PROVIDERS: PCP Family Medicine; Referring Provider Family Medicine; Visit Provider Family Medicine | DX: R79.89 Other specified abnormal findings of blood chemistry (principal) | CPT/HCPCS: 84270; 84402; 84403 ==

== ENCOUNTER 2023-04-29 08:28 | Outpatient (CLI) | payer OTHER, SELFPAY | END 2023-04-29 08:29 | disposition home or self-care (01) | LOC: NFLDREF 05-14 13:20 | PROVIDERS: PCP Family Medicine; Referring Provider Family Medicine; Visit Provider Family Medicine | DX: R79.89 Other specified abnormal findings of blood chemistry (principal); E78.5 Hyperlipidemia, unspecified | CPT/HCPCS: 80076; 84270; 84402; 84403 ==

== ENCOUNTER 2024-01-12 11:18 | Outpatient (CLI) | payer OTHER, SELFPAY | END 2024-01-12 11:19 | disposition home or self-care (01) | PROVIDERS: PCP Family Medicine; Visit Provider Family Medicine | DX: E78.5 Hyperlipidemia, unspecified (principal); R53.83 Other fatigue; R79.89 Other specified abnormal findings of blood chemistry; Z12.5 Encounter for screening for malignant neoplasm of prostate | CPT/HCPCS: 80053; 80061; 84270; 84402; 84403; G0103 ==